=== PATIENT | male | born 1955 | race Caucasian/White ===

== ENCOUNTER 2016-10-31 10:21 | Emergency (ER) | payer SELFPAY ==
--- NOTE | 2016-10-31 10:39 | ER Document Report ---
ED Medical Screen (RME) - General Stated Complaint: BLOOD SUGAR PROB Notes: Patient is brought in today by mobile crisis for safety concerns. He is diabetic, and has not been caring for self correctly. Patient has not eaten in about 4 days, and is homeless. Most recent toe amputation was about 2 months ago to her right foot. Complains of numbness to the foot. Patient has a history of depression. I have greeted and performed a rapid initial assessment of this patient. A comprehensive ED assessment and evaluation of the patient, analysis of test results and completion of the medical decision making process will be conducted by additional ED providers. TRAVEL OUTSIDE OF THE [place] IN LAST 30 DAYS: No - Related Data Allergies/Adverse Reactions: No Known Allergies Allergy (Verified 10/31/16 10:34) Past Medical History - Social History Family history: None - Past Medical History Cardiac Medical History: Denies: Hx Coronary Artery Disease, Hx Heart Attack, Hx Hypertension Pulmonary Medical History: Denies: Hx Asthma, Hx Bronchitis, Hx COPD, Hx Pneumonia Neurological Medical History: Denies: Hx Cerebrovascular Accident, Hx Seizures Endocrine Medical History: Reports: Hx Diabetes Mellitus Type 2 - non compliant with medications Musculoskeltal Medical History: Denies Hx Arthritis Psychiatric Medical History: Reports: Hx Depression - Immunizations Hx Diphtheria, Pertussis, Tetanus Vaccination: No Physical Exam - Vital signs Vitals: Temp Pulse Resp BP Pulse Ox 98.1 F 90 20 167/89 H 99 10/31/16 10:10/31/16 10:10/31/16 10:10/31/16 10:10/31/16 10:31 - Skin Notes: large surgical wound noted to right lower leg, + edema lower legs Course - Vital Signs Vital signs: Temp Pulse Resp BP Pulse Ox 98.1 F 90 20 167/89 H 99 10/31/16 10:31 10/31/16 10:31 10/31/16 10:10/31/16 10:31 10/31/16 10:31
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
[2016-10-31 11:32] LABS: ABSOLUTE EOSINOPHILS # (AUTO) 0.1 10^3/uL (0.0-0.6); ABSOLUTE LYMPHOCYTES (AUTO) 0.9 10^3/uL (0.5-4.7); ABSOLUTE MONOCYTES (AUTO) 0.5 10^3/uL (0.1-1.4); ABSOLUTE NEUT (AUTO) 3.5 10^3/uL (1.7-8.2); BASOPHILS % (AUTO) 0.3 % (0-2); EOSINOPHILS % (AUTO) 1.2 % (0-6); HEMATOCRIT 38.4 % (37.9-51.0); HGB HCT DIFFERENCE 0.6; MEAN CORPUSCULAR HEMOGLOBIN 29.1 pg (27.0-33.4); MEAN CORPUSCULAR HGB CONC 33.8 g/dL (32.0-36.0); MEAN CORPUSCULAR VOLUME 86 fl (80-97); MONOCYTES % (AUTO) 9.7 % (3-13); RED BLOOD COUNT 4.46 10^6/uL (4.35-5.55); RED CELL DISTRIBUTION WIDTH 15.6 % (11.5-14.0); SEGMENTED NEUTROPHILS % (AUTO) 70.8 % (42-78); WHITE BLOOD COUNT 4.9 10^3/uL (4.0-10.5)
[2016-10-31 11:59] LABS: ALANINE AMINOTRANSFERASE 23 U/L (21-72); ALBUMIN 4.1 g/dL (3.5-5.0); ALKALINE PHOSPHATASE 94 U/L (38-126); ANION GAP 17 (5-19); ASPARTATE AMINO TRANSFERASE 27 U/L (17-59); BILIRUBIN,DIRECT 0.3 mg/dL (0.0-0.4); BILIRUBIN,TOTAL 0.7 mg/dL (0.2-1.3); BLOOD UREA NITROGEN 23 mg/dL (7-20); CALCIUM 10.1 mg/dL (8.4-10.2); CARBON DIOXIDE 21 mmol/L (22-30); CHLORIDE 107 mmol/L (98-107); CREATININE RESULT 1.53 mg/dL (0.52-1.25); GLUCOSE 75 mg/dL (75-110); POTASSIUM 4.7 mmol/L (3.6-5.0); SODIUM 144.6 mmol/L (137-145); TOTAL PROTEIN 7.6 g/dL (6.3-8.2)
[2016-10-31 12:00] LABS: ALCOHOL < 10 mg/dL (NONE DETECTED)
[2016-10-31 12:08] LABS: APPEARANCE,URINE SLIGHTLY-CLOUDY; BILIRUBIN,URINE NEGATIVE (NEGATIVE); GLUCOSE, URINE NEGATIVE (NEGATIVE); KETONES,URINE 20 mg/dL (NEGATIVE); LEUKOCYTE ESTERASE,URINE NEGATIVE (NEGATIVE); NITRITE,URINE NEGATIVE (NEGATIVE); PROTEIN,URINE 100 mg/dL (NEGATIVE); URINE SPECIFIC GRAVITY 1.015; UROBILINOGEN,URINE NEGATIVE mg/dL (<2.0)
[2016-10-31 12:23] LABS: URINE BARBITURATES SCREEN NEGATIVE; URINE METHADONE SCREEN NEGATIVE; URINE OPIATES LOW NEGATIVE; URINE PHENCYCLIDINE SCREEN NEGATIVE
[2016-10-31 14:23] VITALS: BP 155/75
--- NOTE | 2016-10-31 21:58 | EKG REPORT ---
SEVERITY:- NORMAL ECG - SINUS RHYTHM : Confirmed by: Aldo Harmon 31-Oct-2016 21:58:22
== END 2016-10-31 14:30 | disposition home or self-care (01) ==
LOC: ER 10:21
DX: Z47.81 Encounter for orthopedic aftercare following surgical amputation (principal); Z89.421 Acquired absence of other right toe(s); Z79.84 Long term (current) use of oral hypoglycemic drugs; E11.9 Type 2 diabetes mellitus without complications
CPT/HCPCS: 36415; 80053; 80307; 81001; 85025; 93005; 93010; 99283

== ENCOUNTER 2019-02-21 10:55 | Emergency (ER) | payer MEDICARE, MEDICAID ==
--- NOTE | 2019-02-21 11:19 | ER Document Report ---
ED Medical Screen (RME) - General Chief Complaint: Suicidal Ideation Stated Complaint: SI Time Seen by Provider: 02/21/19 11:16 Mode of Arrival: Ambulatory Information source: Patient Notes: Patient is a 63-year-old male presenting to the emergency department chief complaint of depression and suicidal thoughts. Patient reports he is a diabetic and was thinking about drinking some liquor and eating some Snickers to put himself into a diabetic coma. Patient reports he has had struggles with alcohol for many years and would like to get help getting back into detox. Patient denies any homicidal ideations. Exam: Patient alert, oriented, answering all questions appropriately. Patient is very tearful but cooperative. Unkempt appearance. I have greeted and performed a rapid initial assessment of this patient. A comprehensive ED assessment and evaluation of the patient, analysis of test results and completion of the medical decision making process will be conducted by additional ED providers. I have specifically instructed the patient or family members with the patient to immediately return to any nursing staff should anything change in the patient's condition or with their chief complaint. This medical record was dictated with voice recognizing software. There may be grammatical, syntax errors that are unintended. TRAVEL OUTSIDE OF THE [place] IN LAST 30 DAYS: No - Related Data Allergies/Adverse Reactions: No Known Allergies Allergy (Verified 02/21/19 10:56) Past Medical History - Social History Frequency of alcohol use: None Drug Abuse: None Family history: None - Past Medical History Cardiac Medical History: Reports: Hx Hypertension Denies: Hx Coronary Artery Disease, Hx Heart Attack Pulmonary Medical History: Denies: Hx Asthma, Hx Bronchitis, Hx COPD, Hx Pneumonia Neurological Medical History: Denies: Hx Cerebrovascular Accident, Hx Seizures Endocrine Medical History: Reports: Hx Diabetes Mellitus Type 2 - non compliant with medications Renal/ Medical History: Denies: Hx Peritoneal Dialysis Musculoskeltal Medical History: Denies Hx Arthritis Psychiatric Medical History: Reports: Hx Depression Past Surgical History: Reports: Other - Multiple toe amputations - Immunizations Hx Diphtheria, Pertussis, Tetanus Vaccination: No Physical Exam - Vital signs Vitals: Temp Pulse Resp BP Pulse Ox 98.5 F 104 H 18 140/79 H 99 02/21/19 11:04 02/21/19 11:04 02/21/19 11:04 02/21/19 11:04 02/21/19 11:04 Course - Vital Signs Vital signs: Temp Pulse Resp BP Pulse Ox 98.5 F 104 H 18 140/79 H 99 02/21/19 11:04 02/21/19 11:04 02/21/19 11:04 02/21/19 11:04 02/21/19 11:04
[2019-02-21 11:57] LABS: ABSOLUTE EOSINOPHILS # (AUTO) 0.1 10^3/uL (0.0-0.6); ABSOLUTE LYMPHOCYTES (AUTO) 0.8 10^3/uL (0.5-4.7); ABSOLUTE MONOCYTES (AUTO) 0.6 10^3/uL (0.1-1.4); BASOPHILS % (AUTO) 0.3 % (0-2); EOSINOPHILS % (AUTO) 1.8 % (0-6); HEMATOCRIT 29.8 % (37.9-51.0); HEMOGLOBIN 10.2 g/dL (13.5-17.0); LYMPHOCYTES % (AUTO) 12.4 % (13-45); MEAN CORPUSCULAR HEMOGLOBIN 28.9 pg (27.0-33.4); MEAN CORPUSCULAR HGB CONC 34.1 g/dL (32.0-36.0); MEAN CORPUSCULAR VOLUME 85 fl (80-97); MONOCYTES % (AUTO) 9.3 % (3-13); PLATELET COUNT 281 10^3/uL (150-450); RED BLOOD COUNT 3.52 10^6/uL (4.35-5.55); RED CELL DISTRIBUTION WIDTH 15.9 % (11.5-14.0); SEGMENTED NEUTROPHILS % (AUTO) 76.2 % (42-78); TOTAL CELLS COUNTED % (AUTO) 100 %; WHITE BLOOD COUNT 6.6 10^3/uL (4.0-10.5)
[2019-02-21 12:17] LABS: ALANINE AMINOTRANSFERASE 18 U/L (21-72); ALBUMIN 3.5 g/dL (3.5-5.0); ALKALINE PHOSPHATASE 103 U/L (38-126); ANION GAP 11 (5-19); ASPARTATE AMINO TRANSFERASE 27 U/L (17-59); BILIRUBIN,DIRECT 0.4 mg/dL (0.0-0.4); BILIRUBIN,TOTAL 0.6 mg/dL (0.2-1.3); BLOOD UREA NITROGEN 35 mg/dL (7-20); CALCIUM 9.1 mg/dL (8.4-10.2); CARBON DIOXIDE 20 mmol/L (22-30); CHLORIDE 106 mmol/L (98-107); GLUCOSE 172 mg/dL (75-110); POTASSIUM 4.7 mmol/L (3.6-5.0); TOTAL PROTEIN 7.3 g/dL (6.3-8.2)
[2019-02-21 12:26] LABS: ACETAMINOPHEN < 10 ug/mL (10-30); ALCOHOL < 10 mg/dL (NONE DETECTED); SALICYLATE < 1.0 mg/dL (2.0-20.0)
[2019-02-21 12:28] LABS: APPEARANCE,URINE CLEAR; BILIRUBIN,URINE NEGATIVE (NEGATIVE); COLOR,URINE YELLOW; GLUCOSE, URINE 50 mg/dL (NEGATIVE); KETONES,URINE NEGATIVE (NEGATIVE); LEUKOCYTE ESTERASE,URINE NEGATIVE (NEGATIVE); NITRITE,URINE NEGATIVE (NEGATIVE); PROTEIN,URINE 100 mg/dL (NEGATIVE); URINE SPECIFIC GRAVITY 1.016; UROBILINOGEN,URINE NEGATIVE mg/dL (<2.0)
[2019-02-21 12:43] LABS: URINE AMPHETAMINES SCREEN NEGATIVE; URINE BARBITURATES SCREEN NEGATIVE; URINE BENZODIAZEPINES SCREEN NEGATIVE; URINE COCAINE SCREEN NEGATIVE; URINE MARIJUANA (THC) SCREEN NEGATIVE; URINE METHADONE SCREEN NEGATIVE; URINE PHENCYCLIDINE SCREEN NEGATIVE
--- NOTE | 2019-02-21 13:15 | ER Document Report ---
ED Psych Disorder / Suicide - General Chief Complaint: Suicidal Ideation Stated Complaint: SI Time Seen by Provider: 02/21/19 11:16 Primary Care Provider: OPAL BRADFORD PA-C [Primary Care Provider] - Follow up as needed Mode of Arrival: Ambulatory Notes: Patient is a 63-year-old male presenting to the emergency department chief complaint of depression and suicidal thoughts. Patient reports he is a diabetic and was thinking about drinking some liquor and eating some Snickers to put him self into a diabetic coma. Patient reports he has had struggles with alcohol for many years and would like to get help getting back into detox. Patient denies any homicidal ideations. TRAVEL OUTSIDE OF THE [place] IN LAST 30 DAYS: No - Related Data Allergies/Adverse Reactions: No Known Allergies Allergy (Verified 02/21/19 10:56) Past Medical History - General Information source: Patient - Social History Smoking Status: Current Every Day Smoker Frequency of alcohol use: None Drug Abuse: None Family History: Reviewed & Not Pertinent, DM Patient has suicidal ideation: Yes Patient has homicidal ideation: No - Past Medical History Cardiac Medical History: Reports: Hx Hypertension Denies: Hx Coronary Artery Disease, Hx Heart Attack Pulmonary Medical History: Denies: Hx Asthma, Hx Bronchitis, Hx COPD, Hx Pneumonia Neurological Medical History: Denies: Hx Cerebrovascular Accident, Hx Seizures Endocrine Medical History: Reports: Hx Diabetes Mellitus Type 2 - non compliant with medications Renal/ Medical History: Denies: Hx Peritoneal Dialysis Musculoskeletal Medical History: Denies Hx Arthritis Psychiatric Medical History: Reports: Hx Depression Past Surgical History: Reports: Other - Multiple toe amputations - Immunizations Hx Diphtheria, Pertussis, Tetanus Vaccination: No Hx Pneumococcal Vaccination: 09/26/13 Review of Systems - Review of Systems Constitutional: denies: Chills, Fever Cardiovascular: denies: Chest pain, Palpitations Respiratory: denies: Short of breath Gastrointestinal: denies: Abdominal pain, Nausea, Vomiting Genitourinary: denies: Dysuria Neurological/Psychological: Depression, Anxiety, Suicidal ideation. denies: Hallucinations, Headaches -: Yes All other systems reviewed and negative Physical Exam - Vital signs Vitals: Temp Pulse Resp BP Pulse Ox 98.5 F 104 H 18 140/79 H 99 02/21/19 11:04 02/21/19 11:04 02/21/19 11:04 02/21/19 11:04 02/21/19 11:04 - Notes Notes: GENERAL_APPEARANCE: well_nourished, alert, cooperative, no_acute_distress, no_obvious_discomfort. VITALS: reviewed, see vital signs table. HEAD: no_swelling\tenderness on the head. EYES: PERRL, EOMI, conjunctiva_clear. NOSE: no_nasal_discharge. MOUTH: (-)decreased moisture. THROAT: no_tonsilar_inflammation, no_airway_obstruction. no_lymphadenopathy NECK: supple, no_neck_tenderness, (-)thyromegaly. BACK: no_back_tenderness. CHEST_WALL: no_chest_tenderness. LUNGS: no_wheezing, no_rales, no_rhonchi, (-)accessory muscle use, good air exchange bilateral. HEART: normal_rate, normal_rhythm, normal_S1, normal_S2, (-)S3, (-)S4, no_murmur, no_rub. ABDOMEN: normal_BS, soft, no_abd_tenderness, (-)guarding, (-)rebound, no_organomegaly, no_abd_masses. EXTREMITIES: good pulses in all_extremities, no_swelling\tenderness in the extremities, no_edema. SKIN: warm, dry, good_color, no_rash. MENTAL_STATUS: speech_clear, oriented_X_3, depressed_affect, responds_appropriately to questions. NEURO: Neg Motor or Sensory Deficits on exam, CN 2-12 intact, DTR 2+ symmetric x 4, No cerbellar signs PSYCH: Patient states he is having thoughts of hurting himself he stated that he would drive himself out to [facility] and drink heavily and eat lots of candy. He states he would put himself in a diabetic coma in an effort to kill himself. He denies any other methods. Denies homicidal ideation. Denies visual auditory hallucinations. Patient reports him to being a lot of stress Course - Re-evaluation Re-evalutation: 02/21/19 13:14 Patient arrives with suicidal thoughts and depression. The patient had some mildly elevated sugar but no anion gap acidosis no ketones in the urine no diabetic ketoacidosis. Patient will need to be placed on sliding scale insulin and need to be seen by psychiatry Otherwise he is medically clear for any kind of inpatient or outpatient psychiatric care he would require. - Vital Signs Vital signs: Temp Pulse Resp BP Pulse Ox 98.5 F 104 H 18 140/79 H 99 02/21/19 11:04 02/21/19 11:04 02/21/19 11:04 02/21/19 11:04 02/21/19 11:04 - Laboratory Result Diagrams: 02/21/19 11:30 02/21/19 11:30 Laboratory results interpreted by me: 02/21/19 02/21/19 02/21/19 11:30 11:30 12:08 RBC 3.52 L Hgb 10.2 L Hct 29.8 L RDW 15.9 H Lymphocytes % 12.4 L Sodium 136.9 L Carbon Dioxide 20 L BUN 35 H Creatinine 1.96 H Est GFR ( Amer) 42 L Est GFR (Non-Af Amer) 34 L Glucose 172 H ALT 18 L Urine Protein 100 H Urine Glucose (UA) 50 H Salicylates < 1.0 L Acetaminophen < 10 L Discharge - Discharge Clinical Impression: Suicidal thoughts Condition: Good Disposition: PSYCH HOSP/UNIT Referrals: OPAL BRADFORD PA-C [Primary Care Provider] - Follow up as needed
[2019-02-21] MEDS ORDERED: INSULIN REG, HUMAN 100 UNIT/ML 3 ML VIAL (PYX) SUBCUT PRN (13:16)
[2019-02-21] MEDS ORDERED: DEXTROSE 40% GEL 15 GM TUBE PO PRN ×2 (13:16)
[2019-02-21] MEDS ORDERED: DEXTROSE 50%-WATER 25 GM/50 ML DISP.SYRIN IV PRN ×2 (13:16)
[2019-02-21] MEDS ORDERED: GLUCAGON,HUMAN RECOMB 1 MG INJ IM PRN (13:16)
[2019-02-21] MEDS ORDERED: DULOXETINE HCL 30 MG CAPSULE.DR PO STA (13:56)
[2019-02-21] MEDS ORDERED: BUSPIRONE HCL 10 MG TABLET PO STA (13:56)
--- NOTE | 2019-02-21 18:35 | PSYCHOLOGICAL NOTE ---
Psych Note - Psych Note Date seen by psych provider: 02/21/19 Time seen by psych provider: 11:33 - Chart review at 1133. Evaluation from 1206- 1221. Psych Note: Presenting Problem: SI with plan to drink alcohol and eat a Snickers to put self in diabetic coma, Depression with Hx, Hx of Alcohol Use. he reported "angel, I'm not clear thinking, no past attempts, I never tried, I have strong thoughts/laid out a plan/got close to taking action" when asked about thoughts of wanting to hurt/harm/kill self. He said "when I go into deep depression I sink real fast, I get back to the suicidal thinking, then get close to normal, it is a roller coaster of ups and downs." Patient stated April 03, 2019 will be 2 years he has been sober from alcohol. he stated he took a medication that helped curb cravings. He denied drug use since during [place] when he used marijuana. He stated "the last few weeks have been a blur." He stated he has been out of medications for a month or longer. He had medication bottles: Naltrexone 50MG QD, Cymbalta 60MG QD, Amlodipine Besylate 10MG QD and Hydralazine 10MG Q8H with prescriber as [facility], fill date as 12/03/18 and bottles empty. He identified he had been on the 5th floor/psych unit at [facility] for 2 weeks. he noted he thinks he was on Paxil in the past, recalls being on it for 60 days without effectiveness. Patient had a back pack and green plastic bag full of clothes, both he and the clothes had a pungent odor. He reported he has 3 male friends in [facility] that are supports and help him out, he was staying with one the past couple days and prior to that was at a motel. He stated he has 3 estranged children, his family is not really supportive and his ex is helpful/they have a good relationship still. He noted his mother from dementia 5 years ago, he had resided with her her last year of life, it was difficult. He stated he thinks mother suffered from depression and did have anorexia other zhang no other family MH Hx. Patient seen by [facility] team 02/24/16 for alcohol withdrawals and depression, was already set to go to [facility] in [place], [place] for treatment the following day (so was discharged to follow through with that placement), had noted he was sober for 3 years until September relapse in that year and reported having SS/Disability. Patient was alert and oriented x5 with linear thinking. He was able to carry on dialogue conversation and express self/needs/wants. Diagnosis: 311 (F32.9) Unspecified Depressive Disorder Hx of Alcohol Use Disorder, Severe Medication recommendations made by the psychiatric medical provider, Dr. Dedrick MD., includes: Add Cymbalta 30MG daily for depression Add Buspar 5MG twice a day for anxiety/calming effect/depression/sleep Impression/Plan: Recommendation for 24 Hour IVC Petition. Patient endorsed SI with plan (more passive however since he reported strong thoughts no past attempts or actions), Hx of depression, was on medication but has been out for a month and abruptly stopped because he ran out of medication and in the past when going into deep depression he has resorted to drinking. Will reassess in the morning. If medication tolerated well will try to do plan of care for discharge and link patient to outpatient provider. Consulted with Dr. Ramachandran regarding the management and care of patient. ED Physician in agreement with recommendations.
--- NOTE | 2019-02-21 21:18 | EKG REPORT ---
SEVERITY:- NORMAL ECG - SINUS RHYTHM : Confirmed by: Aldo Harmon 21-Feb-2019 21:17:07
[2019-02-22] MEDS: DULOXETINE HCL 30 MG CAPSULE.DR PO SCH (10:12)
[2019-02-22] MEDS: BUSPIRONE HCL 10 MG TABLET PO SCH ×2 (10:12→17:16)
--- NOTE | 2019-02-22 20:56 | ER Document Report ---
Entered by RAFAL PAGAN SCRIBE 02/22/19 3220 Acting as scribe for:KETURAH SCHMITT DO Doctor's Note Notes: 02/22/19 17:43 Patient is a 63-year-old male presenting to the emergency department with depression. Patient states that he thought about killing himself. Patient states that he has been staying with a friend in [facility] for a few days, his friend stated that he feels the patient needs help and he brought him here to the emergency department. Patient states that he had a plan to kill himself, he was going to put himself in a diabetic coma with 1/5 of Brayan Shah. Patient states that he has been taking antidepressants, he takes a pill. Patient states that he has been an outpatient at a mental institution about 6 to 8 months ago. Patient is a former drinker, he states that he has had problems with alcoholism. Patient denies trying to kill himself, patient states that he has only thought about it. 02/22/19 17:45 PHYSICAL EXAM GENERAL: Alert, interacts well. No acute distress. HEAD: Normocephalic, atraumatic. EYES: Pupils equal, round, and reactive to light. Extraocular movements intact. ENT: Oral mucosa moist, tongue midline. NECK: Full range of motion. Supple. Trachea midline. LUNGS: Clear to auscultation bilaterally, no wheezes, rales, or rhonchi. No respiratory distress. HEART: Regular rate and rhythm. No murmurs, gallops, or rubs. ABDOMEN: Soft, non-tender. Non-distended. Bowel sounds present in all 4 quadrants. No guarding, rigidity, or rebound. EXTREMITIES: Ecchymosis in various stages of healing at the bilateral forearm. Surgical scar at the center of the right foot. Moves all 4 extremities spontaneously. No edema, radial and dorsalis pedis pulses 2/4 bilaterally. No cyanosis. NEUROLOGICAL: Alert and oriented x3. Normal speech. Biceps and patellar DTRs 2+ bilaterally. PSYCH: Normal affect, normal mood. SKIN: Warm, dry, normal turgor. No rashes or lesions noted. I personally performed the services described in the documentation, reviewed and edited the documentation which was dictated to the scribe in my presence, and it accurately records my words and actions.
[2019-02-23] MEDS: DULOXETINE HCL 30 MG CAPSULE.DR PO SCH (09:34)
[2019-02-23] MEDS: BUSPIRONE HCL 10 MG TABLET PO SCH ×2 (09:35→17:14)
--- NOTE | 2019-02-23 09:37 | ER Document Report ---
Doctor's Note Notes: 02/23/19 09:35 63-year-old male who presents secondary to suicidal ideations and depression. History of alcohol abuse. Labs and vital signs as recorded. Patient is currently calm and cooperative.
[2019-02-23 17:38] VITALS: BP 161/87
--- NOTE | 2019-02-23 19:52 | ER Document Report ---
Doctor's Note Notes: 02/23/19 19:51 Transport is available at this time. Patient remained stable for transport.
== END 2019-02-23 20:05 ==
LOC: ER 10:55
DX: R45.851 Suicidal ideations (principal); F32.9 Major depressive disorder, single episode, unspecified; Z79.899 Other long term (current) drug therapy; F41.9 Anxiety disorder, unspecified; E11.9 Type 2 diabetes mellitus without complications; F17.200 Nicotine dependence, unspecified, uncomplicated; I10 Essential (primary) hypertension
CPT/HCPCS: 93005; 36415; 82962; 80307 ×4; 85025; 80053; 81001; 93010; A9270 ×7; 99285; J1815

== ENCOUNTER 2019-03-15 18:40 | Emergency (ER) | payer MEDICARE, MEDICAID ==
[2019-03-15 19:21] LABS: ABSOLUTE BASOPHILS # (AUTO) 0.1 10^3/uL (0.0-0.2); ABSOLUTE MONOCYTES (AUTO) 0.5 10^3/uL (0.1-1.4); ABSOLUTE NEUT (AUTO) 6.5 10^3/uL (1.7-8.2); BASOPHILS % (AUTO) 0.8 % (0-2); EOSINOPHILS % (AUTO) 0.3 % (0-6); HEMATOCRIT 33.5 % (37.9-51.0); HEMOGLOBIN 11.2 g/dL (13.5-17.0); LYMPHOCYTES % (AUTO) 12.9 % (13-45); MEAN CORPUSCULAR HEMOGLOBIN 28.9 pg (27.0-33.4); MEAN CORPUSCULAR HGB CONC 33.6 g/dL (32.0-36.0); MEAN CORPUSCULAR VOLUME 86 fl (80-97); MONOCYTES % (AUTO) 5.8 % (3-13); PLATELET COUNT 358 10^3/uL (150-450); RED BLOOD COUNT 3.89 10^6/uL (4.35-5.55); RED CELL DISTRIBUTION WIDTH 15.7 % (11.5-14.0); SEGMENTED NEUTROPHILS % (AUTO) 80.2 % (42-78); TOTAL CELLS COUNTED % (AUTO) 100 %; WHITE BLOOD COUNT 8.1 10^3/uL (4.0-10.5)
[2019-03-15 19:41] LABS: APPEARANCE,URINE SLIGHTLY-CLOUDY; BILIRUBIN,URINE NEGATIVE (NEGATIVE); COLOR,URINE YELLOW; GLUCOSE, URINE 50 mg/dL (NEGATIVE); KETONES,URINE NEGATIVE (NEGATIVE); LEUKOCYTE ESTERASE,URINE TRACE (NEGATIVE); NITRITE,URINE NEGATIVE (NEGATIVE); PROTEIN,URINE 100 mg/dL (NEGATIVE); URINE SPECIFIC GRAVITY 1.017; UROBILINOGEN,URINE NEGATIVE mg/dL (<2.0)
[2019-03-15 19:47] LABS: ALBUMIN 4.1 g/dL (3.5-5.0); ALKALINE PHOSPHATASE 105 U/L (38-126); ANION GAP 9 (5-19); ASPARTATE AMINO TRANSFERASE 41 U/L (17-59); BILIRUBIN,DIRECT 0.3 mg/dL (0.0-0.4); BILIRUBIN,TOTAL 0.4 mg/dL (0.2-1.3); BLOOD UREA NITROGEN 35 mg/dL (7-20); CALCIUM 8.9 mg/dL (8.4-10.2); CARBON DIOXIDE 21 mmol/L (22-30); CHLORIDE 106 mmol/L (98-107); GLUCOSE 101 mg/dL (75-110); TOTAL PROTEIN 8.2 g/dL (6.3-8.2)
[2019-03-15 19:48] LABS: ACETAMINOPHEN < 10 ug/mL (10-30); ALCOHOL < 10 mg/dL (NONE DETECTED); POTASSIUM 5.6 mmol/L (3.6-5.0); SALICYLATE < 1.0 mg/dL (2.0-20.0)
[2019-03-15 20:01] LABS: URINE AMPHETAMINES SCREEN NEGATIVE; URINE BARBITURATES SCREEN NEGATIVE; URINE BENZODIAZEPINES SCREEN NEGATIVE; URINE COCAINE SCREEN NEGATIVE; URINE MARIJUANA (THC) SCREEN NEGATIVE; URINE METHADONE SCREEN NEGATIVE; URINE PHENCYCLIDINE SCREEN NEGATIVE
[2019-03-15] MEDS ORDERED: NORMAL SALINE 1000 ML 1,000 ML IV ONE (23:02)
[2019-03-15] MEDS ORDERED: SODIUM POLYSTYRENE SULFONATE 15 GM/60 ML PO ONE (23:02)
--- NOTE | 2019-03-15 23:06 | ER Document Report ---
Addendum entered and electronically signed by HALLIE URIARTE DO 03/16/19 13:59: Discharge - Discharge Clinical Impression: Hyperkalemia, Suicidal ideation Condition: Stable Disposition: HOME, SELF-CARE Additional Instructions: You have been evaluated both medical and behavioral health teams and been deemed appropriate for discharge. You are highly encouraged to follow through with outpatient mental health services for both medication management and therapeutic services. You have been provided a local resource list of area providers including mobile crisis contact information. You have also been provided and economic resource list which includes soup kitchen, food szymanski, care home information and addition to economic assistance programs. DEPRESSION: Your evaluation reveals that you have mental depression. While symptoms may be vague, they often include disturbance of sleep, fatigue, loss of appetite, and general loss of interest in life. While depression may be a side effect of drugs, or a reaction to a major change in your life, many cases have no known cause. If depression is acute, and related to a major loss in your life, you can expect it to clear completely with time. If you have been depressed a long time, are prone to repeated bouts of depression or low mood, or have been thinking of suicide, get help. Depression can be treated with anti-depressant medication and counselling. Long-term depression will often take a few weeks to clear, even with appropriate medication. Follow-up care is important. SUICIDAL IDEATION: Suicidal ideation is a common medical term for thoughts about suicide, which may be as detailed as a formulated plan, without the suicidal act itself. Although most people who undergo suicidal ideation do not commit suicide, some go on to make suicide attempts. The range of suicidal ideation varies greatly from fleeting to detailed planning, role playing, and unsuccessful attempts. While thoughts about suicide are common, most people do not carry out serious actions to commit suicide. Based upon your evaluation and discussion with you, we do not believe you are currently at risk to act upon your thoughts of suicide. You have agreed to return to the Emergency Department, at any time, if you feel inclined to act upon your suicidal thoughts. FOLLOW-UP CARE: If you have been referred to a physician for follow-up care, call the physici ans office for an appointment as you were instructed or within the next two days. If you experience worsening or a significant change in your symptoms, notify the physician immediately or return to the Emergency Department at any time for re-evaluation. Referrals: [facility] [Outside] - Follow up in 3-5 days [facility] [Outside] - Follow up as needed OPAL BRADFORD PA-C [Primary Care Provider] - Follow up as needed Addendum entered and electronically signed by YESENIA OLIVA LCSWA 03/16/19 10:25: Discharge - Discharge Clinical Impression: Hyperkalemia, Suicidal ideation Condition: Stable Disposition: HOME, SELF-CARE Additional Instructions: You have been evaluated both medical and behavioral health teams and been deemed appropriate for discharge. You are highly encouraged to follow through with outpatient mental health services for both medication management and therapeutic services. You have been provided a local resource list of area providers including mobile crisis contact information. You have also been provided and economic resource list which includes soup kitchen, food szymanski, care home information and addition to economic assistance programs. DEPRESSION: Your evaluation reveals that you have mental depression. While symptoms may be vague, they often include disturbance of sleep, fatigue, loss of appetite, and general loss of interest in life. While depression may be a side effect of drugs, or a reaction to a major change in your life, many cases have no known cause. If depression is acute, and related to a major loss in your life, you can expect it to clear completely with time. If you have been depressed a long time, are prone to repeated bouts of depression or low mood, or have been thinking of suicide, get help. Depression can be treated with anti-depressant medication and counselling. Long-term depression will often take a few weeks to clear, even with appropriate medication. Follow-up care is important. SUICIDAL IDEATION: Suicidal ideation is a common medical term for thoughts about suicide, which may be as detailed as a formulated plan, without the suicidal act itself. Although most people who undergo suicidal ideation do not commit suicide, some go on to make suicide attempts. The range of suicidal ideation varies greatly from fleeting to detailed planning, role playing, and unsuccessful attempts. While thoughts about suicide are common, most people do not carry out serious actions to commit suicide. Based upon your evaluation and discussion with you, we do not believe you are currently at risk to act upon your thoughts of suicide. You have agreed to return to the Emergency Department, at any time, if you feel inclined to act upon your suicidal thoughts. FOLLOW-UP CARE: If you have been referred to a physician for follow-up care, call the physicians office for an appointment as you were instructed or within the next two days. If you experience worsening or a significant change in your symptoms, notify the physician immediately or return to the Emergency Department at any time for re-evaluation. Referrals: OPAL BRADFORD PA-C [Primary Care Provider] - Follow up as needed [facility] [Outside] - Follow up as needed [facility] [Outside] - Follow up in 3-5 days Original Note: ED General - General Chief Complaint: Suicidal Ideation Stated Complaint: STOMACH PAIN,FOOT PAIN Time Seen by Provider: 03/15/19 19:17 Primary Care Provider: OPAL BRADFORD PA-C [Primary Care Provider] - Follow up as needed TRAVEL OUTSIDE OF THE [place] IN LAST 30 DAYS: No - HPI Notes: Patient is a 63-year-old male who presents emergency department for evaluation. He has a history of depression. He states today he left his motel, where he is currently living. He went to a fast food restaurant to eat, and was overcome with "waves of depression." He had a plan to drink himself into diabetic, with a bottle of Brayan Shah. He has a history of alcoholism, has been sober for nearly 2 years. He denies any homicidal ideation. No visual or auditory hallucination. He is hospitalized in the past here in the emergency department, but denies any other psychiatric hospitalizations. He states he used to be on antidepressant, does not remember what it was, and states it really never worked. He states that he has pain in his feet, chronic from his diabetic neuropathy. He generally just feels weak and poorly all over. - Related Data Allergies/Adverse Reactions: No Known Allergies Allergy (Verified 02/21/19 10:56) Past Medical History - General Information source: Patient - Social History Smoking Status: Current Some Day Smoker Frequency of alcohol use: Former alcohol attendance Family History: Reviewed & Not Pertinent, DM Patient has suicidal ideation: Yes Patient has homicidal ideation: No - Past Medical History Cardiac Medical History: Reports: Hx Hypertension Denies: Hx Coronary Artery Disease, Hx Heart Attack Pulmonary Medical History: Denies: Hx Asthma, Hx Bronchitis, Hx COPD, Hx Pneumonia Neurological Medical History: Denies: Hx Cerebrovascular Accident, Hx Seizures Endocrine Medical History: Reports: Hx Diabetes Mellitus Type 2 - non compliant with medications Renal/ Medical History: Denies: Hx Peritoneal Dialysis Musculoskeletal Medical History: Denies Hx Arthritis Psychiatric Medical History: Reports: Hx Depression Past Surgical History: Reports: Other - Multiple toe amputations - Immunizations Hx Diphtheria, Pertussis, Tetanus Vaccination: No Hx Pneumococcal Vaccination: 09/26/13 Review of Systems - Review of Systems Constitutional: See HPI EENT: No symptoms reported Cardiovascular: No symptoms reported Respiratory: No symptoms reported Gastrointestinal: No symptoms reported Genitourinary: No symptoms reported Musculoskeletal: No symptoms reported Skin: No symptoms reported Neurological/Psychological: See HPI Physical Exam - Vital signs Vitals: Temp Pulse Resp BP Pulse Ox 99.2 F 85 19 184/82 H 97 03/15/19 19:02 03/15/19 19:02 03/15/19 19:02 03/15/19 19:02 03/15/19 19:02 - Notes Notes: This is a 63-year-old male who appears his stated age in no acute distress. He is calm and cooperative, although disheveled appearance. Vital signs reviewed, please refer to chart. Head is normocephalic, atraumatic. Pupils equal round, reactive to light. Neck is supple without meningismus. Heart is regular rate and rhythm. Lungs are clear to auscultation bilaterally. Abdomen is soft, nontender, normoactive bowel sounds throughout. Extremities without cyanosis, clubbing. Posterior calves are nontender. Peripheral pulses are equal. Skin is warm and dry. Patient is awake, alert, neurological exam is nonfocal. Course - Re-evaluation Re-evalutation: 03/15/19 23:05 Patient presents emergency department for evaluation. He is under IVC for suicidal ideation. Laboratory investigations ordered. He is found to be hyperkalemic. EKG pending at this time. He is given IV fluids as well as a dose of Kayexalate. I have every suspicion that this will be sufficient to treat this hyperkalemia. We will order a repeat metabolic panel for tomorrow morning to confirm. Following treatment, patient will be medically cleared for psychiatric evaluation. 03/15/19 23:06 - Vital Signs Vital signs: Temp Pulse Resp BP Pulse Ox 99.2 F 85 19 184/82 H 97 03/15/19 19:02 03/15/19 19:02 03/15/19 19:02 03/15/19 19:02 03/15/19 19:02 - Laboratory Result Diagrams: 03/15/19 18:55 03/15/19 18:55 Laboratory results interpreted by me: 03/15/19 03/15/19 03/15/19 18:49 18:55 18:55 RBC 3.89 L Hgb 11.2 L Hct 33.5 L RDW 15.7 H Seg Neutrophils % 80.2 H Lymphocytes % 12.9 L Sodium 136.4 L Potassium 5.6 H Carbon Dioxide 21 L BUN 35 H Creatinine 1.92 H Est GFR ( Amer) 43 L Est GFR (Non-Af Amer) 35 L Urine Protein 100 H Urine Glucose (UA) 50 H Urine Blood SMALL H Ur Leukocyte Esterase TRACE H Salicylates < 1.0 L Acetaminophen < 10 L - EKG Interpretation by Me Additional EKG results interpreted by me: 03/16/19 00:20 Sinus mechanism with a rate of 84 bpm. Normal axis and intervals, no acute ST changes concerning for ischemia or infarction. Discharge - Discharge Clinical Impression: Hyperkalemia, Suicidal ideation Condition: Stable Disposition: OTHER Referrals: OPAL BRADFORD PA-C [Primary Care Provider] - Follow up as needed
[2019-03-16 07:14] LABS: ANION GAP 7 (5-19); BLOOD UREA NITROGEN 29 mg/dL (7-20); CALCIUM 8.7 mg/dL (8.4-10.2); CARBON DIOXIDE 22 mmol/L (22-30); CHLORIDE 109 mmol/L (98-107); GLUCOSE 83 mg/dL (75-110)
[2019-03-16 07:29] LABS: POTASSIUM 4.6 mmol/L (3.6-5.0)
[2019-03-16] MEDS ORDERED: HYDRALAZINE HCL 10 MG TABLET PO ONE (09:39)
[2019-03-16] MEDS ORDERED: ONDANSETRON 4 MG TAB.RAPDIS PO ONE (09:39)
[2019-03-16] MEDS ORDERED: AMLODIPINE BESYLATE 10 MG TABLET PO ONE (09:39)
--- NOTE | 2019-03-16 09:43 | ER Document Report ---
Doctor's Note Notes: 03/16/19 09:41 HPI; Patient is a 63-year-old male who presents emergency department for evaluation. He has a history of depression. He states today he left his motel, where he is currently living. He went to a fast food restaurant to eat, and was overcome with "waves of depression." He had a plan to drink himself into diabetic, with a bottle of Brayan Pablo. He has a history of alcoholism, has been sober for nearly 2 years. No acute events overnight. Patient is currently complaining of nausea. Plan is to transfer to [facility] but behavioral health wants an evaluation of the patient's right diabetic foot wound. PHYSICAL EXAMINATION: GENERAL: Well-appearing, well-nourished and in no acute distress. HEAD: Atraumatic, normocephalic. EYES: Pupils equal round extraocular movements intact, conjunctiva are normal. ENT: Nares patent NECK: Normal range of motion LUNGS: No respiratory distress Musculoskeletal: Normal range of motion. Right foot with a quarter sized ulcerated area that is without erythema, pain or purulent discharge. NEUROLOGICAL: Normal speech, normal gait. PSYCH: Normal mood, normal affect. SKIN: Warm, Dry, normal turgor, no rashes or lesions noted. Impression/plan: Patient's foot wound is healing well, does not appear infected. New bandage was placed today. This should not stop the patient from being accepted to a psychiatric facility.
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
--- NOTE | 2019-03-16 14:36 | EKG REPORT ---
SEVERITY:- NORMAL ECG - SINUS RHYTHM : Confirmed by: Aldo Harmon 16-Mar-2019 14:36:15
[2019-03-16 15:26] VITALS: BP 160/70
== END 2019-03-16 15:26 | disposition home or self-care (01) ==
LOC: ER 18:40
DX: R45.851 Suicidal ideations (principal); E87.5 Hyperkalemia; E11.40 Type 2 diabetes mellitus with diabetic neuropathy, unspecified; E11.621 Type 2 diabetes mellitus with foot ulcer; L97.519 Non-pressure chronic ulcer of other part of right foot with unspecified severity; R11.0 Nausea; R53.1 Weakness; F17.200 Nicotine dependence, unspecified, uncomplicated; F10.21 Alcohol dependence, in remission; I10 Essential (primary) hypertension
CPT/HCPCS: 93005; 99285; 96360; 36415; 80307 ×4; 85025; 80048; 80053; 81001; 93010; A9270 ×3; J7030; J3490; S0119

== ENCOUNTER 2019-04-14 15:30 | Emergency (ER) | payer MEDICARE ==
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
[2019-04-14 17:39] LABS: ABSOLUTE LYMPHOCYTES (AUTO) 0.8 10^3/uL (0.5-4.7); ABSOLUTE MONOCYTES (AUTO) 0.5 10^3/uL (0.1-1.4); ABSOLUTE NEUT (AUTO) 3.5 10^3/uL (1.7-8.2); BASOPHILS % (AUTO) 0.6 % (0-2); EOSINOPHILS % (AUTO) 0.5 % (0-6); HEMATOCRIT 32.9 % (37.9-51.0); LYMPHOCYTES % (AUTO) 16.4 % (13-45); MEAN CORPUSCULAR HEMOGLOBIN 28.9 pg (27.0-33.4); MEAN CORPUSCULAR HGB CONC 33.4 g/dL (32.0-36.0); MEAN CORPUSCULAR VOLUME 87 fl (80-97); MONOCYTES % (AUTO) 10.2 % (3-13); PLATELET COUNT 314 10^3/uL (150-450); RED CELL DISTRIBUTION WIDTH 15.6 % (11.5-14.0); SEGMENTED NEUTROPHILS % (AUTO) 72.3 % (42-78); TOTAL CELLS COUNTED % (AUTO) 100 %; WHITE BLOOD COUNT 4.8 10^3/uL (4.0-10.5)
[2019-04-14 17:56] LABS: ALBUMIN 4.1 g/dL (3.5-5.0); ALKALINE PHOSPHATASE 115 U/L (38-126); ANION GAP 13 (5-19); ASPARTATE AMINO TRANSFERASE 38 U/L (17-59); BILIRUBIN,DIRECT 0.2 mg/dL (0.0-0.4); BILIRUBIN,TOTAL 0.5 mg/dL (0.2-1.3); BLOOD UREA NITROGEN 50 mg/dL (7-20); CALCIUM 9.2 mg/dL (8.4-10.2); CARBON DIOXIDE 18 mmol/L (22-30); CHLORIDE 107 mmol/L (98-107); GLUCOSE 88 mg/dL (75-110); POTASSIUM 5.1 mmol/L (3.6-5.0)
[2019-04-14 17:57] LABS: ACETAMINOPHEN < 10 ug/mL (10-30); ALCOHOL < 10 mg/dL (NONE DETECTED); SALICYLATE < 1.0 mg/dL (2.0-20.0)
[2019-04-14] MEDS ORDERED: NORMAL SALINE 1000 ML 1,000 ML IV ONE ×2 (20:42→21:31)
--- NOTE | 2019-04-14 20:42 | ER Document Report ---
ED General - General Chief Complaint: Psych Problem Stated Complaint: WEAKNESS Time Seen by Provider: 04/14/19 16:08 Primary Care Provider: OPAL BRADFORD PA-C [NO LOCAL MD] - Follow up as needed Mode of Arrival: Ambulatory Notes: Patient is a 63-year-old male with depression and diabetes that presents to the emergency department for chief complaint of generalized weakness, and suicidal ideation. Patient states her last few days has been having nausea, vomiting diarrhea, and got dehydrated, he went to get some food at a restaurant today, and he went to go to go the bathroom felt so weak he could get back to the [place] so he asked which is to call 911. He states he really has not had anything to eat in the last 3 days. His nausea and diarrhea have since resolved and he is feeling better from that regard, but does still feel generally weak. He also states his been having suicidal ideations, he recently found out his brother has pancreatic cancer, and he states that he would drive to an uninhibited area, and put himself in a diabetic coma. He has had depressive thoughts in the past, he states that they have been escalating more recently, he lives alone, and does not feel safe at home. He denies having any chest pain, shortness of breath, fevers, chills, night sweats, dysuria, hematuria or abdominal pain. Past Medical History: Diabetes, depression Past Surgical History: Multiple toe amputations Social History: Admits to smoking cigarettes, denies alcohol or drug use. Family History: Reviewed and noncontributory for presenting illness Allergies: Reviewed, see documented allergy list. REVIEW OF SYSTEMS: Other than noted above, the 12 point review of systems was reviewed with the patient and were negative, all pertinent findings are included in the HPI. PHYSICAL EXAMINATION: Vital signs reviewed, nursing noted reviewed. GENERAL: Well-appearing, well-nourished and in no acute distress. HEAD: Atraumatic, normocephalic. EYES: Eyes appear normal, extraocular movements intact, sclera anicteric, conjunctiva are normal. ENT: nares patent, oropharynx clear without exudates. Moist mucous membranes. NECK: Normal range of motion, supple without lymphadenopathy LUNGS: Breath sounds clear to auscultation bilaterally and equal. No wheezes rales or rhonchi. HEART: Regular rate and rhythm without murmurs ABDOMEN: Soft, nontender, normoactive bowel sounds. No rebound, guarding, or rigidity. No masses appreciated. EXTREMITIES: Lower extremity toe amputations noted, no signs of acute infection. Nontender, good range of motion, no pitting or edema. NEUROLOGICAL: No focal neurological deficits. Moves all extremities spontaneously Motor and sensory grossly intact on exam. PSYCH: Somewhat dysphoric mood, but does answer questions appropriately, poor insight, but does have good eye contact when answering questions. SKIN: Warm, Dry, normal turgor, no rashes or lesions noted on exposed skin TRAVEL OUTSIDE OF THE [place] IN LAST 30 DAYS: No - Related Data Allergies/Adverse Reactions: No Known Allergies Allergy (Verified 04/14/19 15:54) Past Medical History - General Information source: Patient - Social History Smoking Status: Current Every Day Smoker Chew tobacco use (# tins/day): No Frequency of alcohol use: Occasional Drug Abuse: None Family History: Reviewed & Not Pertinent, DM Patient has suicidal ideation: Yes Patient has homicidal ideation: No - Past Medical History Cardiac Medical History: Reports: Hx Hypertension Denies: Hx Coronary Artery Disease, Hx Heart Attack Pulmonary Medical History: Denies: Hx Asthma, Hx Bronchitis, Hx COPD, Hx Pneumonia Neurological Medical History: Denies: Hx Cerebrovascular Accident, Hx Seizures Endocrine Medical History: Reports: Hx Diabetes Mellitus Type 2 - non compliant with medications Renal/ Medical History: Denies: Hx Peritoneal Dialysis Musculoskeletal Medical History: Denies Hx Arthritis Psychiatric Medical History: Reports: Hx Depression Past Surgical History: Reports: Other - Multiple toe amputations - Immunizations Hx Diphtheria, Pertussis, Tetanus Vaccination: No Hx Pneumococcal Vaccination: 09/26/13 Physical Exam - Vital signs Vitals: Temp Pulse Resp BP Pulse Ox 97.8 F 80 18 112/65 94 04/14/19 15:59 04/14/19 15:59 04/14/19 15:59 04/14/19 15:59 04/14/19 15:59 Course - Re-evaluation Re-evalutation: Patient seen and examined, vital signs reviewed. Medical screening testing was ordered including bloodwork, EKG, and toxicology. Results of testing were reviewed. Testing demonstrated a mild acute on chronic kidney injury, patient was dosed with IV fluids, total 2 L, I repeated his blood work after he received about a liter and a half of fluid, and his renal function was improving, near his baseline. Patient has been stable from a hemodynamic standpoint. At this point I feel that the patient is medically cleared and can be further evaluated from a psychiatric standpoint for final disposition from the emergency department. Patient updated on plan of care. Laboratory 04/14/19 04/14/19 04/14/19 17:08 17:08 20:30 WBC 4.8 RBC 3.80 L Hgb 11.0 L Hct 32.9 L MCV 87 MCH 28.9 MCHC 33.4 RDW 15.6 H Plt Count 314 Lymph % (Auto) 16.4 [place] % (Auto) 10.2 Eos % (Auto) 0.5 Baso % (Auto) 0.6 Absolute Neuts (auto) 3.5 Absolute Lymphs (auto) 0.8 Absolute Monos (auto) 0.5 Absolute Eos (auto) 0.0 Absolute Basos (auto) 0.0 Seg Neutrophils % 72.3 Sodium 137.7 Potassium 5.1 H Chloride 107 Carbon Dioxide 18 L Anion Gap 13 BUN 50 H Creatinine 2.63 H Est GFR ( Amer) 30 L Est GFR (MDRD) Non-Af 25 L Glucose 88 POC Glucose Calcium 9.2 Total Bilirubin 0.5 Direct Bilirubin 0.2 Neonat Total Bilirubin Not Reportable Neonat Direct Bilirubin Not Reportable Neonat Indirect Bili Not Reportable AST 38 ALT 22 Alkaline Phosphatase 115 Total Protein 8.0 Albumin 4.1 Urine Color YELLOW Urine Appearance CLEAR Urine pH 5.0 Ur Specific [place] 1.014 Urine Protein 100 H Urine Glucose (UA) 50 H Urine Ketones NEGATIVE Urine Blood SMALL H Urine Nitrite NEGATIVE Urine Bilirubin NEGATIVE Urine Urobilinogen NEGATIVE Ur Leukocyte Esterase TRACE H Urine WBC 10-20 Ur Squamous Epith Cells FEW Urine Bacteria TRACE Urine Ascorbic Acid NEGATIVE Salicylates < 1.0 L Urine Opiates Screen Urine Methadone Screen Acetaminophen < 10 L Ur Barbiturates Screen Ur Phencyclidine Scrn Ur Amphetamines Screen U Benzodiazepines Scrn Urine Cocaine Screen U Marijuana (THC) Screen Serum Alcohol < 10 04/14/19 04/14/19 04/15/19 20:30 23:18 04:35 WBC RBC Hgb Hct MCV MCH MCHC RDW Plt Count Lymph % (Auto) [place] % (Auto) Eos % (Auto) Baso % (Auto) Absolute Neuts (auto) Absolute Lymphs (auto) Absolute Monos (auto) Absolute Eos (auto) Absolute Basos (auto) Seg Neutrophils % Sodium 139.1 Potassium 4.6 Chloride 114 H Carbon Dioxide 18 L Anion Gap 7 BUN 44 H Creatinine 2.28 H Est GFR ( Amer) 35 L Est GFR (MDRD) Non-Af 29 L Glucose 85 POC Glucose 129 H Calcium 8.4 Total Bilirubin Direct Bilirubin Neonat Total Bilirubin Neonat Direct Bilirubin Neonat Indirect Bili AST ALT Alkaline Phosphatase Total Protein Albumin Urine Color Urine Appearance Urine pH Ur Specific [place] Urine Protein Urine Glucose (UA) Urine Ketones Urine Blood Urine Nitrite Urine Bilirubin Urine Urobilinogen Ur Leukocyte Esterase Urine WBC Ur Squamous Epith Cells Urine Bacteria Urine Ascorbic Acid Salicylates Urine Opiates Screen NEGATIVE Urine Methadone Screen NEGATIVE Acetaminophen Ur Barbiturates Screen NEGATIVE Ur Phencyclidine Scrn NEGATIVE Ur Amphetamines Screen NEGATIVE U Benzodiazepines Scrn NEGATIVE Urine Cocaine Screen NEGATIVE U Marijuana (THC) Screen NEGATIVE Serum Alcohol - Vital Signs Vital signs: Temp Pulse Resp BP Pulse Ox 97.8 F 69 20 148/73 H 100 04/14/19 21:00 04/14/19 21:00 04/14/19 21:00 04/14/19 21:00 04/14/19 21:00 - Laboratory Result Diagrams: 04/14/19 17:08 04/15/19 04:35 Laboratory results interpreted by me: 04/14/19 04/14/19 04/14/19 17:08 17:08 20:30 RBC 3.80 L Hgb 11.0 L Hct 32.9 L RDW 15.6 H Potassium 5.1 H Chloride Carbon Dioxide 18 L BUN 50 H Creatinine 2.63 H Est GFR ( Amer) 30 L Est GFR (MDRD) Non-Af 25 L POC Glucose Urine Protein 100 H Urine Glucose (UA) 50 H Urine Blood SMALL H Ur Leukocyte Esterase TRACE H Salicylates < 1.0 L Acetaminophen < 10 L 04/14/19 04/15/19 23:18 04:35 RBC Hgb Hct RDW Potassium Chloride 114 H Carbon Dioxide 18 L BUN 44 H Creatinine 2.28 H Est GFR ( Amer) 35 L Est GFR (MDRD) Non-Af 29 L POC Glucose 129 H Urine Protein Urine Glucose (UA) Urine Blood Ur Leukocyte Esterase Salicylates Acetaminophen - EKG Interpretation by Me Additional EKG results interpreted by me: EKG demonstrates sinus rhythm with a ventricular rate of 68 bpm, normal axis, QTC 473 ms, no evidence of acute ischemia in this EKG, this is compared to prior EKG from 03/15/2019, without significant change. Discharge - Discharge Clinical Impression: Acute kidney injury superimposed on CKD, Suicidal ideations Condition: Stable Disposition: PSYCH HOSP/UNIT Referrals: OPAL BRADFORD PA-C [NO LOCAL MD] - Follow up as needed
[2019-04-14 20:56] LABS: APPEARANCE,URINE CLEAR; BILIRUBIN,URINE NEGATIVE (NEGATIVE); COLOR,URINE YELLOW; GLUCOSE, URINE 50 mg/dL (NEGATIVE); KETONES,URINE NEGATIVE (NEGATIVE); LEUKOCYTE ESTERASE,URINE TRACE (NEGATIVE); NITRITE,URINE NEGATIVE (NEGATIVE); PROTEIN,URINE 100 mg/dL (NEGATIVE); URINE SPECIFIC GRAVITY 1.014; UROBILINOGEN,URINE NEGATIVE mg/dL (<2.0)
[2019-04-14 21:03] LABS: ADD MANUAL MICROSCOPIC YES
[2019-04-14 21:06] LABS: BACTERIA,URINE TRACE /HPF
[2019-04-14 21:16] LABS: URINE AMPHETAMINES SCREEN NEGATIVE; URINE BARBITURATES SCREEN NEGATIVE; URINE BENZODIAZEPINES SCREEN NEGATIVE; URINE COCAINE SCREEN NEGATIVE; URINE MARIJUANA (THC) SCREEN NEGATIVE; URINE METHADONE SCREEN NEGATIVE; URINE PHENCYCLIDINE SCREEN NEGATIVE
[2019-04-15 05:09] LABS: ANION GAP 7 (5-19); BLOOD UREA NITROGEN 44 mg/dL (7-20); CALCIUM 8.4 mg/dL (8.4-10.2); CARBON DIOXIDE 18 mmol/L (22-30); CHLORIDE 114 mmol/L (98-107); GLUCOSE 85 mg/dL (75-110); POTASSIUM 4.6 mmol/L (3.6-5.0)
--- NOTE | 2019-04-15 08:46 | EKG REPORT ---
SEVERITY:- NORMAL ECG - SINUS RHYTHM : Confirmed by: Kailee Stuart MD 15-Apr-2019 08:46:08
--- NOTE | 2019-04-15 08:57 | PSYCHOLOGICAL NOTE ---
Psych Note - Psych Note Date seen by psych provider: 04/15/19 Time seen by psych provider: 07:40 Psych Note: Reason for Consult:Suicidal ideation pt presents to ER with c/o SI. 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 pt states his [place] diabetic coma. pt states hx of depression. pt states the past few days it has been getting worse and he needs help. Patient reports he called EMS because he was "violently sick, had mental issues, [place] of things." He reports he has been severely depressed and had thoughts about hurting himself. He denies any history of suicide attempts and states that his thoughts come and go. Patient states that he does not have an outpatient mental health provider however discloses that he has and an appointment coming up on the however is unable to tell me who it is with. Patient states that he was started on medications but ran out. Clinician notes patient has a history of noncompliance with medications. Patient states he cannot "pinpoint triggers but yesterday I did learn my brother has stage IV cancer." Patient is alert and orientated to person, place, time and circumstance. Mood is dysphoric with congruent affect. Patient endorses passive suicidal ideation i.e. no plans means or intent. Patient denies homicidal ideation. Delusions are absent behaviors congruent with an intact reality based presentation I organized and linear thought process. Eye contact is fair. Conversational speech is within normal rate, tone and prosody. Intellectual abilities appear to be within the average range. Attention and concentration are good. Insight, judgment, impulse control are fair. Diagnosis: V60.0 (Z59.0) Homelessness 311 (F32.9) Unspecified Depressive Disorder- patient reports depression for less than 30 days Alcohol Use Disorder, Severe per history: Patient is noted to have no alcohol in his system during his last to [facility] visits No medication recommendations at this time Impression\\plan: Patient is cleared from acute psychiatric services. Patient reports passive suicidal ideation i.e. no plans means or intent. Patient was seen last month, 03/16/2019, after he was discharged from inpatient psychiatric treatment. He had not followed up with outpatient services since his discharge from inpatient or being seen here at [facility]. At this time, it would be more appropriate for the patient to obtain outpatient services for both medication management and therapeutic services. Patient discloses depression that appears to be stemming from social difficulties. Economic resource information has been provided to the patient to assist in both financial and housing previously, and will be provided again today. Patient is recommended to obtain an outpatient mental health provider; local resource list of area providers have been provided to the patient including mobile crisis contact information. Dr. Ramachandran was consulted and the care and management of this patient; attending physician is agreement with recommendations and disposition.
[2019-04-15 15:41] VITALS: BP 170/92
== END 2019-04-15 13:45 | disposition home or self-care (01) ==
LOC: ER 15:30
DX: N17.9 Acute kidney failure, unspecified (principal); R45.851 Suicidal ideations; R53.1 Weakness; R11.2 Nausea with vomiting, unspecified; R19.7 Diarrhea, unspecified; Z59.0 Homelessness; F17.210 Nicotine dependence, cigarettes, uncomplicated; F32.9 Major depressive disorder, single episode, unspecified; I10 Essential (primary) hypertension; E11.9 Type 2 diabetes mellitus without complications
CPT/HCPCS: 93005; 99285; 96360; 96361; 36415; 82962; 80307 ×4; 85025; 80048; 80053; 81001; 93010; J7030

== ENCOUNTER 2019-05-17 19:03 | Inpatient (IN) | payer MEDICARE ==
[2019-05-17] MEDS ORDERED: NORMAL SALINE 1000 ML 1,000 ML IV ONE (20:25)
--- NOTE | 2019-05-17 20:31 | ER Document Report ---
ED General - General Chief Complaint: Foot Pain Stated Complaint: RIGHT FOOT PAIN Time Seen by Provider: 05/17/19 19:16 Notes: Patient is a 63-year-old male with multiple medical conditions including diabetes mellitus, peripheral vascular disease and hypertension that presents to the emergency department for chief complaint of right foot pain. Patient states over the last 4 days his right foot has become more red and inflamed and painful. He has an ulcer that is been on the bottom of his foot for some time and he thinks is getting worse he is not getting any treatment for it currently. He thinks his foot is more swollen and felt warmer as well. He states he is unable to put weight on his foot and is having a hard time getting around at home. He currently rates his pain as a 9 out of 10 describes as a constant throbbing sensation in his right foot. He has had prior amputations of toes on the foot due to infection. Past Medical History: Diabetes mellitus, peripheral vascular disease, hypertension Past Surgical History: Multiple toe amputations Social History: Admits to smoking cigarettes, denies alcohol or drug use. Family History: Reviewed and noncontributory for presenting illness Allergies: Reviewed, see documented allergy list. REVIEW OF SYSTEMS: Other than noted above, the 12 point review of systems was reviewed with the patient and were negative, all pertinent findings are included in the HPI. PHYSICAL EXAMINATION: Vital signs reviewed, nursing noted reviewed. GENERAL: Appears older than stated age, no acute distress HEAD: Atraumatic, normocephalic. EYES: Eyes appear normal, extraocular movements intact, sclera anicteric, conjunctiva are normal. ENT: nares patent, oropharynx clear without exudates. Moist mucous membranes. NECK: Normal range of motion, supple without lymphadenopathy LUNGS: Breath sounds clear to auscultation bilaterally and equal. No wheezes rales or rhonchi. HEART: Regular rate and rhythm without murmurs ABDOMEN: Soft, nontender, normoactive bowel sounds. No rebound, guarding, or rigidity. No masses appreciated. EXTREMITIES: Right foot is noted to have the third fourth and fifth digits amputated, there is a plantar ulcer noted, does not probe particularly deep, there is surrounding erythema to the entire foot and is tender to palpate and does feel warm to touch. There is some redness extending up the leg proximally as well. And there is tenderness to palpation of this area as well. The rest the patient's extremity exam is grossly unremarkable, aside from prior amputations on the left foot as well of the toes. NEUROLOGICAL: No focal neurological deficits. Moves all extremities spontaneously Motor and sensory grossly intact on exam. PSYCH: Normal mood, normal affect. SKIN: Warm, Dry, normal turgor TRAVEL OUTSIDE OF THE [place] IN LAST 30 DAYS: No - Related Data Allergies/Adverse Reactions: No Known Allergies Allergy (Verified 04/14/19 15:54) Past Medical History - Social History Smoking Status: Current Every Day Smoker Chew tobacco use (# tins/day): No Frequency of alcohol use: None Drug Abuse: None Family History: Reviewed & Not Pertinent, DM Patient has suicidal ideation: No Patient has homicidal ideation: No - Past Medical History Cardiac Medical History: Reports: Hx Hypertension Denies: Hx Coronary Artery Disease, Hx Heart Attack Pulmonary Medical History: Denies: Hx Asthma, Hx Bronchitis, Hx COPD, Hx Pneumonia Neurological Medical History: Denies: Hx Cerebrovascular Accident, Hx Seizures Endocrine Medical History: Reports: Hx Diabetes Mellitus Type 2 - non compliant with medications Renal/ Medical History: Denies: Hx Peritoneal Dialysis Musculoskeletal Medical History: Denies Hx Arthritis Psychiatric Medical History: Reports: Hx Depression Past Surgical History: Reports: Other - Multiple toe amputations - Immunizations Hx Diphtheria, Pertussis, Tetanus Vaccination: No Hx Pneumococcal Vaccination: 09/26/13 Physical Exam - Vital signs Vitals: Resp 05/17/19 19:09 Course - Re-evaluation Re-evalutation: Patient seen and examined vital signs reviewed. Laboratory data and imaging were ordered as appropriate for the patient's presenting symptoms and complaint, with consideration of any critical or life threatening conditions that may be associated with their obtained history and exam as noted above. Patient was treated with IV fluids and IV Zosyn and vancomycin Results were reviewed when available and demonstrated elevated CRP and sed rate, x-ray was not convincing of osteomyelitis, I did consult the surgeon to take a look at this patient he recommended IV antibiotics but no surgical intervention at this time and recommended wound care for the patient's foot ulcer. The patient was re-evaluated and was stable and improved Evaluation was most consistent with right foot cellulitis and ulcer Results were discussed with the patient at this point after careful consideration I feel that that patient should be admitted to the hospital. This was discussed with the patient that it is in the best interest for their care to be admitted for further evaluation and management. Patient agreed with this plan of care. A call was placed to the admitting physician, Dr. Hodges who graciously accepted the patient onto their service. *Note is created using voice recognition software and may contain spelling, syntax or grammatical errors. Laboratory 05/17/19 05/17/19 05/17/19 19:08 19:09 19:09 WBC 6.9 RBC 3.84 L Hgb 11.3 L Hct 33.7 L MCV 88 MCH 29.4 MCHC 33.6 RDW 15.8 H Plt Count 205 Lymph % (Auto) 19.4 [place] % (Auto) 8.8 Eos % (Auto) 0.5 Baso % (Auto) 0.3 Absolute Neuts (auto) 4.9 Absolute Lymphs (auto) 1.3 Absolute Monos (auto) 0.6 Absolute Eos (auto) 0.0 Absolute Basos (auto) 0.0 Seg Neutrophils % 71.0 ESR 51 H Sodium 134.1 L Potassium 5.2 H Chloride 101 Carbon Dioxide 21 L Anion Gap 12 BUN 36 H Creatinine 2.67 H Est GFR ( Amer) 29 L Est GFR (MDRD) Non-Af 24 L Glucose 64 L POC Glucose 61 L Calcium 9.3 Total Bilirubin 0.4 Direct Bilirubin 0.2 Neonat Total Bilirubin Not Reportable Neonat Direct Bilirubin Not Reportable Neonat Indirect Bili Not Reportable AST 79 H ALT 34 Alkaline Phosphatase 108 C-Reactive Protein 56.4 H Total Protein 8.0 Albumin 3.7 TSH Free T4 Free T3 pg/mL 05/17/19 19:09 WBC RBC Hgb Hct MCV MCH MCHC RDW Plt Count Lymph % (Auto) [place] % (Auto) Eos % (Auto) Baso % (Auto) Absolute Neuts (auto) Absolute Lymphs (auto) Absolute Monos (auto) Absolute Eos (auto) Absolute Basos (auto) Seg Neutrophils % ESR Sodium Potassium Chloride Carbon Dioxide Anion Gap BUN Creatinine Est GFR ( Amer) Est GFR (MDRD) Non-Af Glucose POC Glucose Calcium Total Bilirubin Direct Bilirubin Neonat Total Bilirubin Neonat Direct Bilirubin Neonat Indirect Bili AST ALT Alkaline Phosphatase C-Reactive Protein Total Protein Albumin TSH 0.85 Free T4 1.62 Free T3 pg/mL 4.98 Foot X-Ray 05/17/19 20:25 IMPRESSION: 1. Cutaneous wound plantar to the 1st MTP joint, with associated soft tissue edema. 2. No radiographic evidence for osteomyelitis - Vital Signs Vital signs: Temp Pulse Resp BP Pulse Ox 98.7 F 14 160/72 H 99 05/18/19 01:39 05/18/19 03:01 05/18/19 03:00 05/18/19 03:01 - Laboratory Result Diagrams: 05/17/19 19:09 05/17/19 19:09 Laboratory results interpreted by me: 05/17/19 05/17/19 05/17/19 19:08 19:09 19:09 RBC 3.84 L Hgb 11.3 L Hct 33.7 L RDW 15.8 H ESR 51 H Sodium 134.1 L Potassium 5.2 H Carbon Dioxide 21 L BUN 36 H Creatinine 2.67 H Est GFR ( Amer) 29 L Est GFR (MDRD) Non-Af 24 L Glucose 64 L POC Glucose 61 L AST 79 H C-Reactive Protein 56.4 H Discharge - Discharge Clinical Impression: Cellulitis Qualifiers: Site of cellulitis: extremity Site of cellulitis of extremity: lower extremity Laterality: right Qualified Code(s): L03.115 - Cellulitis of right lower limb Diabetic foot ulcer Qualifiers: Diabetic foot ulcer location: other Diabetes mellitus type: type 2 Laterality: right Non-pressure ulcer stage: unspecified non-pressure ulcer stage Qualified Code(s): E11.621 - Type 2 diabetes mellitus with foot ulcer; L97.519 - Non-pres sure chronic ulcer of other part of right foot with unspecified severity Condition: Stable Disposition: ADMITTED INPATIENT Admitting Provider: Carroll (Hospitalist) Unit Admitted: Medical Floor
[2019-05-17] MEDS ORDERED: MORPHINE SULFATE 10 MG/ML INJ IV ONE (20:48)
[2019-05-17] MEDS ORDERED: ONDANSETRON HCL INJ/PF 4 MG/2 ML SDV IV ONE (20:48)
[2019-05-17 20:50] LABS: ALBUMIN 3.7 g/dL (3.5-5.0); ALKALINE PHOSPHATASE 108 U/L (38-126); ANION GAP 12 (5-19); ASPARTATE AMINO TRANSFERASE 79 U/L (17-59); BILIRUBIN,DIRECT 0.2 mg/dL (0.0-0.4); BILIRUBIN,TOTAL 0.4 mg/dL (0.2-1.3); BLOOD UREA NITROGEN 36 mg/dL (7-20); C-REACTIVE PROTEIN 56.4 mg/L (<10.0); CALCIUM 9.3 mg/dL (8.4-10.2); CARBON DIOXIDE 21 mmol/L (22-30); CHLORIDE 101 mmol/L (98-107); POTASSIUM 5.2 mmol/L (3.6-5.0)
[2019-05-17 20:55] LABS: GLUCOSE 64 mg/dL (75-110)
[2019-05-17 21:01] LABS: ABSOLUTE LYMPHOCYTES (AUTO) 1.3 10^3/uL (0.5-4.7); ABSOLUTE MONOCYTES (AUTO) 0.6 10^3/uL (0.1-1.4); ABSOLUTE NEUT (AUTO) 4.9 10^3/uL (1.7-8.2); BASOPHILS % (AUTO) 0.3 % (0-2); EOSINOPHILS % (AUTO) 0.5 % (0-6); HEMATOCRIT 33.7 % (37.9-51.0); HEMOGLOBIN 11.3 g/dL (13.5-17.0); LYMPHOCYTES % (AUTO) 19.4 % (13-45); MEAN CORPUSCULAR HEMOGLOBIN 29.4 pg (27.0-33.4); MEAN CORPUSCULAR HGB CONC 33.6 g/dL (32.0-36.0); MEAN CORPUSCULAR VOLUME 88 fl (80-97); MONOCYTES % (AUTO) 8.8 % (3-13); PLATELET COUNT 205 10^3/uL (150-450); RED BLOOD COUNT 3.84 10^6/uL (4.35-5.55); RED CELL DISTRIBUTION WIDTH 15.8 % (11.5-14.0); TOTAL CELLS COUNTED % (AUTO) 100 %; WHITE BLOOD COUNT 6.9 10^3/uL (4.0-10.5)
--- NOTE | 2019-05-17 21:34 | RADIOLOGY REPORT (SQ) ---
EXAM DESCRIPTION: Right foot RadLex: XR FOOT 3 OR MORE VIEWS Views: 3 CLINICAL HISTORY: 63 years Male, right foot pain COMPARISON: None. FINDINGS: There has been previous surgical removal of much of the 5th metatarsal as well as the 3rd and 4th phalanges. Soft tissue edema is noted plantar to the 1st MTP joint, with ulceration. There are no associated lytic bone changes. No acute fractures. Vascular calcifications are noted. Small plantar calcaneal spur is present. IMPRESSION: 1. Cutaneous wound plantar to the 1st MTP joint, with associated soft tissue edema. 2. No radiographic evidence for osteomyelitis
[2019-05-17] MEDS ORDERED: PIPERACILLIN/TAZOBACTAM 3.375 GM VIAL IV ONE (21:46)
[2019-05-17] MEDS ORDERED: VANCOMYCIN HCL INJ 1000 MG VIAL IV ONE (21:46)
[2019-05-17 21:50] LABS: ERYTHROCYTE SEDIMENTATION RATE 51 mm/hr (0-20)
--- NOTE | 2019-05-17 22:46 | PDOC CONSULTATION ---
Consultation Consult Date: 05/17/19 Provider Consulted: MYRON MICHAELS Consult reason:: Painful right foot ulcer History of Present Illness History of Present Illness: ANTHONY PAZ is a 63 year old male with history of [id number] diabetes mellitus noted to have an ulcer along the right foot for the past 4months. In the past 4 days patient has been complaining of pains and decided to come to ED. He claims she could barely walk because of the pains. Denies any fever nor chills. Denies any discharge. He had a previous right third fo urth and fifth toes and fifth meta metatarsal amputations in the past. He claims he has not consulted any physician for this ulcer in the past. Past Medical History Cardiac Medical History: Reports: Hypertension Denies: Coronary Artery Disease, Myocardial Infarction Pulmonary Medical History: Denies: Asthma, Bronchitis, Chronic Obstructive Pulmonary Disease (COPD), Pneumonia Neurological Medical History: Denies: Seizures Endocrine Medical History: Reports: Diabetes Mellitus Type 2 - non compliant with medications Musculoskeltal Medical History: Denies: Arthritis Psychiatric Medical History: Reports: Depression Hematology: Denies: Anemia Past Surgical History Past Surgical History: Reports: Other - Multiple toe amputations Social History Smoking Status: Current Every Day Smoker Electronic Cigarette use?: No Frequency of Alcohol Use: None Hx Recreational Drug Use: No Hx Prescription Drug Abuse: No Family History Family History: Reviewed & Not Pertinent, DM Parental Family History Reviewed: Yes Children Family History Reviewed: No Sibling(s) Family History Reviewed.: No Medication/Allergy Home Medications: Metformin HCl [Glucophage] 500 mg PO DAILY #30 tablet 07/14/13 Oxycodone HCl/Acetaminophen [Percocet 5-325 mg Tablet] 1 tab PO Q4HP PRN Chlordiazepoxide HCl [Librium 25 mg Capsule] 1 - 2 cap PO QID PRN #20 capsule 02/24/16 Allergies/Adverse Reactions: No Known Allergies Allergy (Verified 04/14/19 15:54) Review of Systems Constitutional: PRESENT: as per HPI Musculoskeletal: PRESENT: as per HPI Neurological: PRESENT: paresthesias - Both feet Physical Exam Vital Signs: Temp Pulse Resp BP Pulse Ox 98.5 F 14 05/17/19 19:18 05/17/19 19:09 Intake & Output 05/16/19 05/17/19 05/18/19 06:59 06:59 06:59 Intake Total 1000 Balance 1000 Weight 70.307 kg General appearance: PRESENT: mild distress Head exam: PRESENT: atraumatic Eye exam: PRESENT: conjunctiva pink Neck exam: PRESENT: full ROM Respiratory exam: PRESENT: clear to auscultation simona Cardiovascular exam: PRESENT: RRR Pulses: PRESENT: normal dorsalis pedis pul Vascular exam: PRESENT: normal capillary refill Extremities exam: PRESENT: other - There is a dry 1.5 cm ulcer opposite the first metatarsophalangeal joint area. No abscess noted. There is some mild erythema around it Healed scars along the anterior below the knee and around ankle area. This may be from previous fasciotomy sites. There are good dorsalis pedis artery and posterior tibial artery pulses along the right side Neurological exam: PRESENT: alert, oriented to person, oriented to place, oriented to time, oriented to situation Psychiatric exam: PRESENT: appropriate affect Skin exam: PRESENT: normal color, warm Results Laboratory Results: 05/17/19 19:09 05/17/19 19:09 05/17/19 05/17/19 19:09 19:09 WBC 6.9 RBC 3.84 L Hgb 11.3 L Hct 33.7 L MCV 88 MCH 29.4 MCHC 33.6 RDW 15.8 H Plt Count 205 Seg Neutrophils % 71.0 Sodium 134.1 L Potassium 5.2 H Chloride 101 Carbon Dioxide 21 L Anion Gap 12 BUN 36 H Creatinine 2.67 H Est GFR ( Amer) 29 L Glucose 64 L Calcium 9.3 Total Bilirubin 0.4 AST 79 H Alkaline Phosphatase 108 C-Reactive Protein 56.4 H Total Protein 8.0 Albumin 3.7 Impressions: Foot X-Ray 05/17/19 20:25 IMPRESSION: 1. Cutaneous wound plantar to the 1st MTP joint, with associated soft tissue edema. 2. No radiographic evidence for osteomyelitis Assessment & Plan - Diagnosis (1) ulcer right foot with cellulitis Is this a current diagnosis for this admission?: Yes (2) Type II diabetes mellitus with manifestations Is this a current diagnosis for this admission?: Yes - Time Time Spent: 30 to 50 Minutes - Inpatient Certification Medical Necessity: Need for IV Antibiotics - Plan Summary Plan Summary: This is a 63-year-old type II diabetic with a history of amputation of the toes in both feet and right lower leg fasciotomy. He has a chronic ulcer along the right foot on the plantar side opposite the first MP joint which she claims was asymptomatic for the past 4 months but the past 4 days started to complain of pains with him not able to ambulate well. The ulcer itself appears dry and low views abscess or osteomyelitis on x-ray. He may have a starting cellulitis and will need IV antibiotics as well as physical therapy to teach him how to ambulate without placing much pressure on the right foot and or wearing special boot. There is no need for any debridement at this time. He definitely needs to be followed up at the wound care center as far as further management of the right foot ulcer.
[2019-05-18] MEDS ORDERED: ONDANSETRON 4 MG TAB.RAPDIS PO PRN (00:26)
[2019-05-18] MEDS ORDERED: TEMAZEPAM 15 MG CAPSULE PO PRN (00:26)
[2019-05-18] MEDS ORDERED: LEVALBUTEROL HCL NEB 0.63 MG/3 ML AMPUL NEB PRN (00:26)
[2019-05-18] MEDS ORDERED: ONDANSETRON HCL INJ/PF 4 MG/2 ML SDV IV PRN (00:26)
[2019-05-18] MEDS ORDERED: MAG HYDROX/AL HYDROX/SIMETH SUSP 30 ML UDCUP PO PRN (00:26)
[2019-05-18] MEDS ORDERED: MAGNESIUM HYDROXIDE SUSP 30 ML UDCUP PO PRN (00:26)
[2019-05-18] MEDS ORDERED: NICOTINE 21 MG/24 HR PATCH.TD24 TD PRN (00:32)
[2019-05-18] MEDS ORDERED: ACETAMINOPHEN 325 MG TABLET PO PRN (00:32)
[2019-05-18] MEDS ORDERED: NALBUPHINE HCL INJ 10 MG/1 ML AMPULE IV PRN (00:32)
[2019-05-18] MEDS ORDERED: INSULIN REG, HUMAN 100 UNIT/ML 3 ML VIAL (PYX) SUBCUT PRN (00:32)
[2019-05-18] MEDS ORDERED: DIAZEPAM INJ 10 MG/2 ML DISP.SYRIN IV PRN (00:34)
[2019-05-18] MEDS ORDERED: GLUCAGON,HUMAN RECOMB 1 MG INJ IM PRN (00:37)
[2019-05-18] MEDS ORDERED: DEXTROSE 50%-WATER 25 GM/50 ML DISP.SYRIN IV PRN ×2 (00:37)
[2019-05-18] MEDS ORDERED: DEXTROSE 40% GEL 15 GM TUBE PO PRN ×2 (00:37)
[2019-05-18] MEDS ORDERED: PIPERACILLIN/TAZOBACTAM 3.375 GM VIAL IV SCH (00:45)
[2019-05-18] MEDS ORDERED: VANCOMYCIN HCL INJ 1000 MG VIAL IV SCH (00:45)
[2019-05-18] MEDS ORDERED: PIPERACILLIN/TAZOBACTAM 3.375 GM VIAL IV PRN (01:14)
[2019-05-18 02:39] LABS: FREE T3 4.98 pg/mL (2.77-5.27); FREE T4 (FREE THYROXINE) 1.62 ng/dL (0.78-2.19)
[2019-05-18 02:53] LABS: THYROID STIMULATING HORMONE 0.85 uIU/mL (0.47-4.68)
[2019-05-18] MEDS: RINGERS SOLUTION,LACTATED 1,000 ML IV PRN ×3 (04:08→21:11)
--- NOTE | 2019-05-18 05:06 | PDOC H&P ---
History of Present Illness Admission Date/PCP: 05/17/19 22:36 No local PCP Patient complains of: Sore on right foot History of Present Illness: ANTHONY PAZ is a 63 year old male who presented to the emergency room with a 4-month history of a sore on his right foot. He admits that his right foot has an ulceration on the sole of the foot which is gradually become larger over the last 4 months. Over the last 3 to 4 days he has developed severe pain, swelling, redness and increased warmth of the right foot making walking or any weightbearing extremely painful and was not relieved well by his Percocet 5/325 at home. He describes the pain as a continuous severe throbbing of the right foot without radiation. The pain becomes exquisitely sharp and severe with any weightbearing. He denies any additional accompanying or associated signs and symptoms. He denies prior similar episodes and has not identified any additional aggravating or ameliorating factors for his right foot ulceration. In the emergency room he was found to have an elevated erythrocyte sedimentation rate at 50 and an elevated CRP at 56 with a normal white blood count and x-rays that showed no evidence of osteomyelitis. He did have evidence of acute on chronic renal insufficiency and was started on intravenous vancomycin and Zosyn. He was subsequently admitted to the hospital for further evaluation treatment. Past Medical History Cardiac Medical History: Reports: Hypertension, Peripheral Vascular Disease Denies: Coronary Artery Disease, Myocardial Infarction Pulmonary Medical History: Denies: Asthma, Bronchitis, Chronic Obstructive Pulmonary Disease (COPD), Pneumonia EENT Medical History: Denies: Cataracts, Ears - Hearing aids Neurological Medical History: Denies: Hemorrhagic CVA, Ischemic CVA, Seizures Endocrine Medical History: Reports: Diabetes Mellitus Type 2 - non compliant with medications Denies: Diabetes Mellitus Type 1, Hyperthyroidism, Hypothyroidism, Obesity Renal/ Medical History: Reports: Chronic Kidney Disease Denies: Nephrolithiasis Malignancy Medical History: Reports: None GI Medical History: Denies: Cirrhosis, Hepatitis Musculoskeltal Medical History: Denies: Arthritis, Gout Skin Medical History: Denies: Eczema, Psoriasis Psychiatric Medical History: Reports: Depression, Tobacco Dependency Denies: Alcohol Dependency, Substance Abuse Traumatic Medical History: Reports: None Hematology: Denies: Anemia, Bleeding Tendencies Infectious Medical History: Reports: None Past Surgical History Past Surgical History: Reports: Vascular Surgery - Amputations: right third, fourth and fifth toes, left second and third toes Social History Information Source: Patient Lives with: Alone Smoking Status: Current Every Day Smoker Electronic Cigarette use?: No Frequency of Alcohol Use: None Hx Recreational Drug Use: No Drugs: None Hx Prescription Drug Abuse: No - Advance Directive Resuscitation Status: Full Code Surrogate healthcare decision maker:: Kasey Paz Family History Family History: Hypertension, Malignancy. denies: CAD, DM Parental Family History Reviewed: Yes Children Family History Reviewed: No Sibling(s) Family History Reviewed.: Yes Medication/Allergy Home Medications: Metformin HCl [Glucophage] 500 mg PO DAILY #30 tablet 07/14/13 Oxycodone HCl/Acetaminophen [Percocet 5-325 mg Tablet] 1 tab PO Q4HP PRN 04/17/14 Chlordiazepoxide HCl [Librium 25 mg Capsule] 1 - 2 cap PO QID PRN #20 capsule 02/24/16 Allergies/Adverse Reactions: No Known Allergies Allergy (Verified 04/14/19 15:54) Review of Systems Constitutional: ABSENT: chills, fever(s) Eyes: ABSENT: visual disturbances, other - Eye pain Ears: ABSENT: hearing changes, other - Ear pain Nose, Mouth, and Throat: ABSENT: headache(s), mouth pain, sore throat Cardiovascular: ABSENT: chest pain, palpitations Respiratory: ABSENT: cough, dyspnea Gastrointestinal: ABSENT: abdominal pain, constipation, diarrhea, nausea, vomiting Genitourinary: ABSENT: dysuria, hematuria Musculoskeletal: PRESENT: as per HPI, other - Painful right foot. ABSENT: back pain, joint swelling, muscle weakness Integumentary: PRESENT: as per HPI, erythema - Right foot with erythema, swelling, pain and increased warmth, wounds - Sole of right foot. ABSENT: p ruritus, rash Neurological: ABSENT: confusion, convulsions, focal weakness, memory loss, syncope Psychiatric: ABSENT: anxiety, depression Endocrine: ABSENT: cold intolerance, heat intolerance Hematologic/Lymphatic: ABSENT: easy bleeding, easy bruising Allergic/Immunologic: ABSENT: seasonal rhinorrhea Physical Exam Vital Signs: Temp Pulse Resp BP Pulse Ox 98.5 F 14 05/17/19 19:18 05/17/19 19:09 Intake & Output 05/15/19 05/16/19 05/17/19 23:59 23:59 23:59 Intake Total 1000 Balance 1000 Weight 70.307 kg General appearance: PRESENT: no acute distress, cooperative Head exam: PRESENT: atraumatic, normocephalic Eye exam: PRESENT: conjunctiva pink. ABSENT: conjunctival injection, scleral icterus Ear exam: PRESENT: normal external ear exam. ABSENT: bleeding, drainage Mouth exam: PRESENT: dry mucosa, neck supple Neck exam: ABSENT: thyromegaly, tracheal deviation Respiratory exam: PRESENT: decreased breath sounds - Mildly decreased breath sounds throughout all joaquin consistent with mild to moderate COPD, prolonged expiratory phas - Mildly prolonged expiratory phase throughout all joaquin, symmetrical, unlabored Cardiovascular exam: PRESENT: RRR. ABSENT: clicks, gallop, rubs Pulses: PRESENT: normal radial pulses, +1 pedal pulses bilateral Vascular exam: PRESENT: normal capillary refill. ABSENT: pallor GI/Abdominal exam: PRESENT: normal bowel sounds, soft. ABSENT: tenderness Rectal exam: PRESENT: deferred Extremities exam: PRESENT: tenderness - Right foot, plantar aspect in area of plantar ulceration (first MP joint).. ABSENT: pedal edema Musculoskeletal exam: PRESENT: other - Right 3rd, 4th and 5th toes + left 2nd and 3rd toes, surgically absent. ABSENT: deformity, dislocation Neurological exam: PRESENT: alert, oriented to person, oriented to place, or iented to time, oriented to situation, CN II-XII grossly intact. ABSENT: motor sensory deficit Psychiatric exam: PRESENT: appropriate affect, normal mood Skin exam: PRESENT: dry, warm, other - There is a 1.5 cm moderate (into subcutaneous fat) depth ulceration of the right plantar surface of the forefoot in the area of the first metatarsal phalangeal joint. With local erythema, edema with tenderness to palpation. Also with mild to moderate eschar formation.. ABSENT: jaundice, rash, urticaria Results Laboratory Results: 05/17/19 19:09 05/17/19 19:09 05/17/19 05/17/19 19:09 19:09 WBC 6.9 RBC 3.84 L Hgb 11.3 L Hct 33.7 L MCV 88 MCH 29.4 MCHC 33.6 RDW 15.8 H Plt Count 205 Seg Neutrophils % 71.0 Sodium 134.1 L Potassium 5.2 H Chloride 101 Carbon Dioxide 21 L Anion Gap 12 BUN 36 H Creatinine 2.67 H Est GFR ( Amer) 29 L Glucose 64 L Calcium 9.3 Total Bilirubin 0.4 AST 79 H Alkaline Phosphatase 108 C-Reactive Protein 56.4 H Total Protein 8.0 Albumin 3.7 Impressions: Foot X-Ray 05/17/19 20:25 IMPRESSION: 1. Cutaneous wound plantar to the 1st MTP joint, with associated soft tissue edema. 2. No radiographic evidence for osteomyelitis Assessment and Plan - Diagnosis (1) Plantar ulcer of right foot Qualifiers: Non-pressure ulcer stage: with fat layer exposed Qualified Code(s): L97.512 - Non-pressure chronic ulcer of other part of right foot with fat layer exposed Is this a current diagnosis for this admission?: Yes Plan: Patient was treated with IV antibiotic therapy and will receive analgesia for his foot discomfort. Physical therapy will be consulted for evaluation and treatment. Surgical consultation has already been obtained by the emergency room physician and the surgeon indicates that there is no surgical intervention to be done at this time. Daily CBCs will be obtained as part of the evaluation. Santyl ointment dressings changed daily will be used initially to remove the eschar and nonviable tissues. (2) Diabetes mellitus type 2 in nonobese Is this a current diagnosis for this admission?: Yes Plan: Patient be continued on his usual diabetic diet and diabetic medications. Hemoglobin A1c will be obtained to assess the efficacy of his current therapy. Before meals and at bedtime Accu-Cheks will be obtained and hyperglycemia will be addressed with a sliding scale insulin regiment and a hypoglycemic protocol will be in place. (3) Peripheral vascular disease Is this a current diagnosis for this admission?: Yes Plan: Patient's peripheral vascular system will be evaluated on a regular basis and any negative vascular events will be addressed immediately. (4) Hypertension Qualifiers: Hypertension type: essential hypertension Qualified Code(s): I10 - Essential (primary) hypertension Is this a current diagnosis for this admission?: Yes Plan: Patient be continued on his current antihypertensive regiment with frequent evaluations of his blood pressure throughout his hospital course. Adjustments will be made to the medical regimen if required. (5) Acute kidney injury superimposed on chronic kidney disease Is this a current diagnosis for this admission?: Yes Plan: Patient will be treated initially with IV fluid and daily metabolic profiles and magnesium levels will be obtained as part of his evaluation. - Time Time Spent with patient: 25-34 minutes Smoking Cessation Education: 3 to 10 minutes Medications reviewed and adjusted accordingly: Yes Anticipated discharge: Home - Inpatient Certification Based on my medical assessment, after consideration of the patient's comorbidities, presenting symptoms, or acuity I expect that the services needed warrant INPATIENT care.: Yes I certify that my determination is in accordance with my understanding of Medicare's requirements for reasonable and necessary INPATIENT services [42 CFR 412.3e].: Yes Medical Necessity: Significant Comorbidiites Make Outpatient Treatment Too Risky, Need Close Monitoring Due to Risk of Patient Decompensation, Need For IV Fluids, Need for Pain Control, Need for IV Antibiotics, Risk of Complication if Not Cared For in Hospital
[2019-05-18] MEDS ORDERED: COLLAGENASE CLOSTRIDIUM HIST. OINT 30 GM ONE (05:11)
[2019-05-18] MEDS: HEPARIN SOD (PORCINE) 5,000 UNIT/ML 1 ML VIAL SUBCUT SCH ×3 (05:23→21:10)
[2019-05-18] MEDS: PANTOPRAZOLE SODIUM 40 MG TABLET.DR PO SCH ×2 (05:24→16:10)
[2019-05-18] MEDS ORDERED: PIPERACILLIN/TAZOBACTAM 3.375 GM VIAL IV ONE ×2 (05:46→06:00)
--- NOTE | 2019-05-18 09:04 | PDOC PROGRESS REPORT ---
Subjective Progress Note for:: 05/18/19 Subjective:: 05/18/2019-continued pain in the plantar surface of the right foot Reason For Visit: CELLULITIS OF RIGHT FOOT, PLANTAR ULCERATION Physical Exam Vital Signs: Temp Pulse Resp BP Pulse Ox 98.1 F 76 14 126/55 H 96 05/18/19 04:04 05/18/19 07:45 05/18/19 07:45 05/18/19 04:04 05/18/19 07:45 Intake & Output 05/17/19 05/18/19 05/19/19 06:59 06:59 06:59 Intake Total 1221 Output Total 75 Balance 1146 Weight 158.6 kg General appearance: PRESENT: no acute distress, well-developed, well-nourished Neck exam: ABSENT: carotid bruit, JVD, lymphadenopathy, thyromegaly Respiratory exam: PRESENT: clear to auscultation simona. ABSENT: rales, rhonchi, wheezes Cardiovascular exam: PRESENT: RRR. ABSENT: diastolic murmur, rubs, systolic mur mur Pulses: PRESENT: +1 pedal pulses bilateral Vascular exam: PRESENT: normal capillary refill GI/Abdominal exam: PRESENT: normal bowel sounds, soft. ABSENT: distended, guarding, mass, organolmegaly, rebound, tenderness Extremities exam: PRESENT: full ROM. ABSENT: calf tenderness, clubbing, pedal edema Neurological exam: PRESENT: alert, awake, oriented to person, oriented to place, oriented to time, oriented to situation, CN II-XII grossly intact. ABSENT: motor sensory deficit Psychiatric exam: PRESENT: appropriate affect, normal mood. ABSENT: homicidal ideation, suicidal ideation Skin exam: PRESENT: other - Dime sized plantar ulcer on the right foot just below the great toe Results Laboratory Results: 05/17/19 19:09 05/17/19 19:09 05/17/19 05/17/19 05/17/19 19:09 19:09 19:09 WBC 6.9 RBC 3.84 L Hgb 11.3 L Hct 33.7 L MCV 88 MCH 29.4 MCHC 33.6 RDW 15.8 H Plt Count 205 Seg Neutrophils % 71.0 Sodium 134.1 L Potassium 5.2 H Chloride 101 Carbon Dioxide 21 L Anion Gap 12 BUN 36 H Creatinine 2.67 H Est GFR ( Amer) 29 L Glucose 64 L Calcium 9.3 Total Bilirubin 0.4 AST 79 H Alkaline Phosphatase 108 C-Reactive Protein 56.4 H Total Protein 8.0 Albumin 3.7 TSH 0.85 Free T4 1.62 Free T3 pg/mL 4.98 Impressions: Foot X-Ray 05/17/19 20:25 IMPRESSION: 1. Cutaneous wound plantar to the 1st MTP joint, with associated soft tissue edema. 2. No radiographic evidence for osteomyelitis Assessment and Plan - Plan Summary Summary: 05/18/2019- Plantar ulcer of right foot-at this time we will continue IV antibiotic therapy await cultures. Patient will receive Percocet for pain. Surgical consultation was obtained with no surgical findings at this time. Continue Santyl ointment dressing changes. Diabetes mellitus type 2 in nonobese-patient was continue on usual diabetic diet and diabetic medications. A1c is pending. Continue Accu-Cheks before meals and at bedtime. Peripheral vascular disease-continue to follow. Stable at this time Hypertension-continue patient on home antihypertensives. Acute kidney injury superposed on chronic kidney disease. Patient was hydrated with IV fluids. This seems to be more chronic in nature than acute. We will continue to follow daily BMPs - Time Time Spent with patient: 15-24 minutes - Inpatient Certification Based on my medical assessment, after consideration of the patient's comorbidities, presenting symptoms, or acuity I expect that the services needed warrant INPATIENT care.: Yes I certify that my determination is in accordance with my understanding of Medicare's requirements for reasonable and necessary INPATIENT services [42 CFR 412.3e].: Yes Medical Necessity: Need For IV Fluids, Need for IV Antibiotics
[2019-05-18] MEDS: DOCUSATE SODIUM 100 MG CAPSULE PO SCH ×2 (11:26→17:25)
[2019-05-18] MEDS: COLLAGENASE CLOSTRIDIUM HIST. OINT 30 GM TP SCH (11:26)
[2019-05-18] MEDS: PIPERACILLIN SODIUM/TAZOBACTAM 2.25 GM in NORMAL SALINE 50 ML IV SCH ×3 (11:26→20:21)
[2019-05-18] MEDS: OXYCODONE-ACETAMINOPHEN 5-325 MG TABLET PO PRN ×3 (11:26→20:21)
[2019-05-18] MEDS: VANCOMYCIN HCL 750 MG in DEXTROSE 5%-WATER 250 ML IV SCH (21:04)
[2019-05-19] MEDS: PIPERACILLIN SODIUM/TAZOBACTAM 2.25 GM in NORMAL SALINE 50 ML IV SCH ×4 (02:16→20:17)
[2019-05-19] MEDS: HYDRALAZINE HCL INJ/PF 20 MG/1 ML SDV IV PRN ×2 (04:16→15:59)
[2019-05-19] MEDS: PANTOPRAZOLE SODIUM 40 MG TABLET.DR PO SCH ×2 (05:05→17:15)
[2019-05-19] MEDS: HEPARIN SOD (PORCINE) 5,000 UNIT/ML 1 ML VIAL SUBCUT SCH ×3 (05:06→21:37)
[2019-05-19] MEDS: RINGERS SOLUTION,LACTATED 1,000 ML IV PRN ×3 (05:25→20:17)
[2019-05-19 05:54] LABS: HEMATOCRIT 30.2 % (37.9-51.0); MEAN CORPUSCULAR HEMOGLOBIN 29.2 pg (27.0-33.4); MEAN CORPUSCULAR HGB CONC 33.2 g/dL (32.0-36.0); MEAN CORPUSCULAR VOLUME 88 fl (80-97); PLATELET COUNT 175 10^3/uL (150-450); RED BLOOD COUNT 3.44 10^6/uL (4.35-5.55); RED CELL DISTRIBUTION WIDTH 16.2 % (11.5-14.0); WHITE BLOOD COUNT 6.5 10^3/uL (4.0-10.5)
[2019-05-19 06:15] LABS: ANION GAP 9 (5-19); BLOOD UREA NITROGEN 26 mg/dL (7-20); CALCIUM 8.5 mg/dL (8.4-10.2); CARBON DIOXIDE 20 mmol/L (22-30); CHLORIDE 108 mmol/L (98-107); CHOLESTEROL 123.06 mg/dL (0-200); GLUCOSE 76 mg/dL (75-110); POTASSIUM 4.7 mmol/L (3.6-5.0); TRIGLYCERIDES 67 mg/dL (<150)
[2019-05-19 06:25] LABS: DIRECT LDL 41 mg/dL (<100)
[2019-05-19] MEDS ORDERED: INFLUENZA QUAD (6MOS+) 2019-20 VAC 0.5 ML SYR IM ONE (08:00)
--- NOTE | 2019-05-19 09:49 | PDOC PROGRESS REPORT ---
Subjective Progress Note for:: 05/19/19 Subjective:: 05/18/2019-continued pain in the plantar surface of the right foot 05/19/2019-improved pain. Reason For Visit: CELLULITIS OF RIGHT FOOT, PLANTAR ULCERATION Physical Exam Vital Signs: Temp Pulse Resp BP Pulse Ox 98.1 F 97 18 119/53 L 98 05/19/19 08:50 05/19/19 08:50 05/19/19 08:50 05/19/19 08:50 05/19/19 08:50 Intake & Output 05/18/19 05/19/19 05/20/19 06:59 06:59 06:59 Intake Total 1221 4667 Output Total 75 976 Balance 1146 3691 Weight 158.6 kg 70.7 kg General appearance: PRESENT: no acute distress, well-developed, well-nourished Neck exam: ABSENT: carotid bruit, JVD, lymphadenopathy, thyromegaly Respiratory exam: PRESENT: clear to auscultation simona. ABSENT: rales, rhonchi, wheezes Cardiovascular exam: PRESENT: RRR. ABSENT: diastolic murmur, rubs, systolic murmur Pulses: PRESENT: +1 pedal pulses bilateral Vascular exam: PRESENT: normal capillary refill GI/Abdominal exam: PRESENT: normal bowel sounds, soft. ABSENT: distended, guarding, mass, organolmegaly, rebound, tenderness Extremities exam: PRESENT: other - Multiple toes missing on right foot. Plantar surface wound dime sized just proximal to great toe Neurological exam: PRESENT: alert, awake, oriented to person, oriented to place, oriented to time, oriented to situation, CN II-XII grossly intact. ABSENT: motor sensory deficit Psychiatric exam: PRESENT: appropriate affect, normal mood. ABSENT: homicidal ideation, suicidal ideation Skin exam: PRESENT: dry, intact, warm. ABSENT: cyanosis, rash Results Laboratory Results: 05/19/19 04:57 05/19/19 04:57 05/19/19 05/19/19 04:57 04:57 WBC 6.5 RBC 3.44 L Hgb 10.0 L Hct 30.2 L MCV 88 MCH 29.2 MCHC 33.2 RDW 16.2 H Plt Count 175 Sodium 136.8 L Potassium 4.7 Chloride 108 H Carbon Dioxide 20 L Anion Gap 9 BUN 26 H Creatinine 2.46 H Est GFR ( Amer) 32 L Glucose 76 Calcium 8.5 Magnesium 1.6 Triglycerides 67 Cholesterol 123.06 LDL Cholesterol Direct 41 VLDL Cholesterol 13.0 HDL Cholesterol 57 Impressions: Foot X-Ray 05/17/19 20:25 IMPRESSION: 1. Cutaneous wound plantar to the 1st MTP joint, with associated soft tissue edema. 2. No radiographic evidence for osteomyelitis Assessment and Plan - Plan Summary Summary: 05/18/2019- Plantar ulcer of right foot-at this time we will continue IV antibiotic therapy await cultures. Patient will receive Percocet for pain. Surgical consultation was obtained with no surgical findings at this time. Continue Santyl ointment dressing changes. Diabetes mellitus type 2 in nonobese-patient was continue on usual diabetic diet and diabetic medications. A1c is pending. Continue Accu-Cheks before meals and at bedtime. Peripheral vascular disease-continue to follow. Stable at this time Hypertension-continue patient on home antihypertensives. Acute kidney injury superposed on chronic kidney disease. Patient was hydrated with IV fluids. This seems to be more chronic in nature than acute. We will continue to follow daily BMPs 05/19/2019- Plantar ulcer of right foot-continue antibiotics continue PRN pain medications. Continue Santyl ointment dressing changes. Anticipate discharge tomorrow. Diabetes mellitus type 2 nonobese-'s stable. Continue Accu-Cheks before meals and at bedtime Hypertension-stable Peripheral vascular disease-stable acute kidney injury superposed on chronic k idney disease this is to be chronic in nature. Patient Remains with a creatinine of 2.5. I will DC IV hydration at this time. - Time Time Spent with patient: 15-24 minutes - Inpatient Certification Based on my medical assessment, after consideration of the patient's comorbidities, presenting symptoms, or acuity I expect that the services needed warrant INPATIENT care.: Yes I certify that my determination is in accordance with my understanding of Medicare's requirements for reasonable and necessary INPATIENT services [42 CFR 412.3e].: Yes Medical Necessity: Need for IV Antibiotics
[2019-05-19] MEDS: OXYCODONE-ACETAMINOPHEN 5-325 MG TABLET PO PRN ×4 (10:13→22:51)
[2019-05-19] MEDS: DOCUSATE SODIUM 100 MG CAPSULE PO SCH ×2 (10:14→17:16)
[2019-05-19] MEDS: COLLAGENASE CLOSTRIDIUM HIST. OINT 30 GM TP SCH (10:18)
[2019-05-19] MEDS: VANCOMYCIN HCL 750 MG in DEXTROSE 5%-WATER 250 ML IV SCH ×2 (10:57→22:42)
[2019-05-20] MEDS: PIPERACILLIN SODIUM/TAZOBACTAM 2.25 GM in NORMAL SALINE 50 ML IV SCH ×4 (02:53→21:29)
[2019-05-20] MEDS: OXYCODONE-ACETAMINOPHEN 5-325 MG TABLET PO PRN ×2 (04:10→19:27)
[2019-05-20] MEDS: RINGERS SOLUTION,LACTATED 1,000 ML IV PRN (05:06)
[2019-05-20] MEDS: PANTOPRAZOLE SODIUM 40 MG TABLET.DR PO SCH ×2 (05:07→17:47)
[2019-05-20] MEDS: HEPARIN SOD (PORCINE) 5,000 UNIT/ML 1 ML VIAL SUBCUT SCH ×3 (05:07→21:30)
[2019-05-20 05:39] LABS: HEMATOCRIT 28.2 % (37.9-51.0); HEMOGLOBIN 9.3 g/dL (13.5-17.0); MEAN CORPUSCULAR HEMOGLOBIN 29.2 pg (27.0-33.4); MEAN CORPUSCULAR HGB CONC 33.2 g/dL (32.0-36.0); MEAN CORPUSCULAR VOLUME 88 fl (80-97); PLATELET COUNT 171 10^3/uL (150-450); RED CELL DISTRIBUTION WIDTH 16.1 % (11.5-14.0); WHITE BLOOD COUNT 5.9 10^3/uL (4.0-10.5)
[2019-05-20 06:01] LABS: BLOOD UREA NITROGEN 21 mg/dL (7-20); CALCIUM 8.3 mg/dL (8.4-10.2); CHLORIDE 106 mmol/L (98-107); GLUCOSE 94 mg/dL (75-110); POTASSIUM 4.5 mmol/L (3.6-5.0)
[2019-05-20 06:13] LABS: ANION GAP 7 (5-19); CARBON DIOXIDE 22 mmol/L (22-30)
[2019-05-20] MEDS ORDERED: PHARMACY COMMUNICATION ORDER MC ONE (09:00)
--- NOTE | 2019-05-20 10:01 | PDOC PROGRESS REPORT ---
Subjective Progress Note for:: 05/20/19 Subjective:: 05/18/2019-continued pain in the plantar surface of the right foot 05/19/2019-improved pain. 05/20/2019-continue pain although improved. Patient continues work with physical therapy Reason For Visit: CELLULITIS OF RIGHT FOOT, PLANTAR ULCERATION Physical Exam Vital Signs: Temp Pulse Resp BP Pulse Ox 98.4 F 80 16 152/72 H 96 05/20/19 07:22 05/20/19 07:22 05/20/19 07:22 05/20/19 07:22 05/20/19 07:22 Intake & Output 05/19/19 05/20/19 05/21/19 06:59 06:59 06:59 Intake Total 4667 5221 Output Total 976 1610 Balance 3691 3611 Weight 70.7 kg 76.2 kg General appearance: PRESENT: no acute distress, well-developed, well-nourished Neck exam: ABSENT: carotid bruit, JVD, lymphadenopathy, thyromegaly Respiratory exam: PRESENT: clear to auscultation simona. ABSENT: rales, rhonchi, wheezes Cardiovascular exam: PRESENT: RRR. ABSENT: diastolic murmur, rubs, systolic murmur Pulses: PRESENT: +1 pedal pulses bilateral Vascular exam: PRESENT: normal capillary refill GI/Abdominal exam: PRESENT: normal bowel sounds, soft. ABSENT: distended, guarding, mass, organolmegaly, rebound, tenderness Extremities exam: PRESENT: other - Decreased circulation throughout bilateral lower extremity's. Missing toes on the right foot. Time sized diabetic ulcer on plantar surface of foot just proximal to great toe Neurological exam: PRESENT: alert, awake, oriented to person, oriented to place, oriented to time, oriented to situation, CN II-XII grossly intact. ABSENT: motor sensory deficit Psychiatric exam: PRESENT: appropriate affect, normal mood. ABSENT: homicidal ideation, suicidal ideation Skin exam: PRESENT: dry, intact, warm. ABSENT: cyanosis, rash Results Laboratory Results: 05/20/19 04:38 05/20/19 04:38 05/20/19 05/20/19 04:38 04:38 WBC 5.9 RBC 3.20 L Hgb 9.3 L Hct 28.2 L MCV 88 MCH 29.2 MCHC 33.2 RDW 16.1 H Plt Count 171 Sodium 135.1 L Potassium 4.5 Chloride 106 Carbon Dioxide 22 Anion Gap 7 BUN 21 H Creatinine 2.30 H Est GFR ( Amer) 35 L Glucose 94 Calcium 8.3 L Magnesium 1.3 L Impressions: Foot X-Ray 05/17/19 20:25 IMPRESSION: 1. Cutaneous wound plantar to the 1st MTP joint, with associated soft tissue edema. 2. No radiographic evidence for osteomyelitis Assessment and Plan - Plan Summary Summary: 05/18/2019- Plantar ulcer of right foot-at this time we will continue IV antibiotic therapy await cultures. Patient will receive Percocet for pain. Surgical consultation was obtained with no surgical findings at this time. Continue Santyl ointment dressing changes. Diabetes mellitus type 2 in nonobese-patient was continue on usual diabetic diet and diabetic medications. A1c is pending. Continue Accu-Cheks before meals and at bedtime. Peripheral vascular disease-continue to follow. Stable at this time Hypertension-continue patient on home antihypertensives. Acute kidney injury superposed on chronic kidney disease. Patient was hydrated with IV fluids. This seems to be more chronic in nature than acute. We will continue to follow daily BMPs 05/19/2019- Plantar ulcer of right foot-continue antibiotics continue PRN pain medications. Continue Santyl ointment dressing changes. Anticipate discharge tomorrow. Diabetes mellitus type 2 nonobese-'s stable. Continue Accu-Cheks before meals and at bedtime Hypertension-stable Peripheral vascular disease-stable acute kidney injury superposed on chronic kidney disease this is to be chronic in nature. Patient Remains with a creatinine of 2.5. I will DC IV hydration at this time. 05/20/2019- Plantar ulcer of the right foot-continue antibiotics. PRN pain medications. Patient on steady at this time to be discharged secondary to immobility and he is homeless. Diabetes mellitus type 2 nonobese-stable Hypertension-stable Peripheral vascular disease stable Acute kidney injury superimposed on chronic kidney disease. Chronic stable Hypomagnesemia-2 g IV magnesium at this time repeat magnesium level in the a.m. - Inpatient Certification Based on my medical assessment, after consideration of the patient's comorbidities, presenting symptoms, or acuity I expect that the services needed warrant INPATIENT care.: Yes I certify that my determination is in accordance with my understanding of Medicare's requirements for reasonable and necessary INPATIENT services [42 CFR 412.3e].: Yes Medical Necessity: Other - Physical therapy, IV magnesium
[2019-05-20] MEDS: DOCUSATE SODIUM 100 MG CAPSULE PO SCH ×2 (10:10→17:47)
[2019-05-20] MEDS: MAGNESIUM SULFATE/D5W 1 GM/100 ML RTUPB IV SCH ×2 (10:10→12:51)
[2019-05-20] MEDS: COLLAGENASE CLOSTRIDIUM HIST. OINT 30 GM TP SCH (10:10)
[2019-05-20 11:43] LABS: VANCOMYCIN,TROUGH 21.8 ug/mL (5.0-20.0)
[2019-05-20] MEDS ORDERED: VANCOMYCIN HCL 1,000 MG in DEXTROSE 5%-WATER 250 ML IV SCH (18:00)
[2019-05-20] MEDS: HYDRALAZINE HCL INJ/PF 20 MG/1 ML SDV IV PRN (19:27)
[2019-05-21] MEDS: PIPERACILLIN SODIUM/TAZOBACTAM 2.25 GM in NORMAL SALINE 50 ML IV SCH ×4 (03:47→21:34)
[2019-05-21 05:49] LABS: HEMATOCRIT 26.4 % (37.9-51.0); HEMOGLOBIN 8.9 g/dL (13.5-17.0); MEAN CORPUSCULAR HEMOGLOBIN 29.4 pg (27.0-33.4); MEAN CORPUSCULAR HGB CONC 33.9 g/dL (32.0-36.0); MEAN CORPUSCULAR VOLUME 87 fl (80-97); PLATELET COUNT 177 10^3/uL (150-450); RED BLOOD COUNT 3.04 10^6/uL (4.35-5.55); RED CELL DISTRIBUTION WIDTH 15.9 % (11.5-14.0); WHITE BLOOD COUNT 5.7 10^3/uL (4.0-10.5)
[2019-05-21] MEDS: HEPARIN SOD (PORCINE) 5,000 UNIT/ML 1 ML VIAL SUBCUT SCH ×3 (06:48→21:13)
[2019-05-21] MEDS: PANTOPRAZOLE SODIUM 40 MG TABLET.DR PO SCH ×2 (06:49→17:04)
[2019-05-21] MEDS: VANCOMYCIN HCL 750 MG in DEXTROSE 5%-WATER 250 ML IV SCH (06:52)
[2019-05-21] MEDS: HYDRALAZINE HCL INJ/PF 20 MG/1 ML SDV IV PRN (08:26)
[2019-05-21] MEDS: OXYCODONE-ACETAMINOPHEN 5-325 MG TABLET PO PRN (08:27)
--- NOTE | 2019-05-21 10:27 | PDOC PROGRESS REPORT ---
Subjective Progress Note for:: 05/21/19 Subjective:: 05/18/2019-continued pain in the plantar surface of the right foot 05/19/2019-improved pain. 05/20/2019-continue pain although improved. Patient continues work with physical therapy 05/21/2019-no complaints this a.m. Reason For Visit: CELLULITIS OF RIGHT FOOT, PLANTAR ULCERATION Physical Exam Vital Signs: Temp Pulse Resp BP Pulse Ox 98.1 F 76 16 183/80 H 94 05/21/19 07:39 05/21/19 07:39 05/21/19 07:39 05/21/19 07:39 05/21/19 07:39 Intake & Output 05/20/19 05/21/19 05/22/19 06:59 06:59 06:59 Intake Total 5221 3008 Output Total 1610 1425 Balance 3611 1583 Weight 76.2 kg 76.6 kg General appearance: PRESENT: no acute distress, well-developed, well-nourished Neck exam: PRESENT: carotid bruit Respiratory exam: PRESENT: clear to auscultation simona. ABSENT: rales, rhonchi, wheezes Cardiovascular exam: PRESENT: RRR. ABSENT: diastolic murmur, rubs, systolic murmur Pulses: PRESENT: +1 pedal pulses bilateral Vascular exam: PRESENT: normal capillary refill GI/Abdominal exam: PRESENT: normal bowel sounds, soft. ABSENT: distended, guarding, mass, organolmegaly, rebound, tenderness Extremities exam: PRESENT: other - Bilateral feet with multiple missing toes. Patient does have a right plantar surface ulcer just proximal to his great toe Neurological exam: PRESENT: alert, awake, oriented to person, oriented to place, oriented to time, oriented to situation, CN II-XII grossly intact. ABSENT: motor sensory deficit Psychiatric exam: PRESENT: appropriate affect, normal mood. ABSENT: homicidal ideation, suicidal ideation Skin exam: PRESENT: dry, intact, warm. ABSENT: cyanosis, rash Results Laboratory Results: 05/21/19 05:08 05/20/19 10:05 05/20/19 05/21/19 05/21/19 10:05 05:08 05:08 WBC 5.7 RBC 3.04 L Hgb 8.9 L Hct 26.4 L MCV 87 MCH 29.4 MCHC 33.9 RDW 15.9 H Plt Count 177 Creatinine 2.20 H Est GFR ( Amer) 37 L Magnesium 1.7 Impressions: Foot X-Ray 05/17/19 20:25 IMPRESSION: 1. Cutaneous wound plantar to the 1st MTP joint, with associated soft tissue edema. 2. No radiographic evidence for osteomyelitis Assessment and Plan - Plan Summary Summary: 05/18/2019- Plantar ulcer of right foot-at this time we will continue IV antibiotic therapy await cultures. Patient will receive Percocet for pain. Surgical consultation was obtained with no surgical findings at this time. Continue Santyl ointment dressing changes. Diabetes mellitus type 2 in nonobese-patient was continue on usual diabetic diet and diabetic medications. A1c is pending. Continue Accu-Cheks before meals and at bedtime. Peripheral vascular disease-continue to follow. Stable at this time Hypertension-continue patient on home antihypertensives. Acute kidney injury superposed on chronic kidney disease. Patient was hydrated with IV fluids. This seems to be more chronic in nature than acute. We will continue to follow daily BMPs 05/19/2019- Plantar ulcer of right foot-continue antibiotics continue PRN pain medications. Continue Santyl ointment dressing changes. Anticipate discharge tomorrow. Diabetes mellitus type 2 nonobese-'s stable. Continue Accu-Cheks before meals and at bedtime Hypertension-stable Peripheral vascular disease-stable acute kidney injury superposed on chronic kidney disease this is to be chronic in nature. Patient Remains with a creatinine of 2.5. I will DC IV hydration at this time. 05/20/2019- Plantar ulcer of the right foot-continue antibiotics. PRN pain medications. Patient on steady at this time to be discharged secondary to immobility and he is homeless. Diabetes mellitus type 2 nonobese-stable Hypertension-stable Peripheral vascular disease stable Acute kidney injury superimposed on chronic kidney disease. Chronic stable Hypomagnesemia-2 g IV magnesium at this time repeat magnesium level in the a.m. 05/21/2019- Plantar ulcer of the right foot-continue antibiotics. PRN pain meds. Patient remains unsteady and has to use walker for mobility. I have discussed with case management and we will proceed to place him in short-term rehab. Diabetes most type II nonobese-stable Hypertension-patient began PRN hydralazine. At this time will place patient Norvasc 10 mg p.o. daily we will continue to follow Peripheral vascular disease-stable Acute on chronic superimposed kidney disease stable Hypomagnesemia-stable mag level 1.7 this morning. - Time Time Spent with patient: 15-24 minutes - Inpatient Certification Medical Necessity: Need for Pain Control, Need for IV Antibiotics
[2019-05-21] MEDS: AMLODIPINE BESYLATE 10 MG TABLET PO SCH (12:32)
[2019-05-21] MEDS: DOCUSATE SODIUM 100 MG CAPSULE PO SCH ×2 (12:33→17:04)
[2019-05-21] MEDS: COLLAGENASE CLOSTRIDIUM HIST. OINT 30 GM TP SCH (12:33)
[2019-05-22] MEDS: PIPERACILLIN SODIUM/TAZOBACTAM 2.25 GM in NORMAL SALINE 50 ML IV SCH ×4 (03:19→21:55)
[2019-05-22] MEDS: HEPARIN SOD (PORCINE) 5,000 UNIT/ML 1 ML VIAL SUBCUT SCH ×3 (05:30→21:38)
[2019-05-22] MEDS: PANTOPRAZOLE SODIUM 40 MG TABLET.DR PO SCH ×2 (05:30→17:18)
[2019-05-22 06:19] LABS: HEMATOCRIT 28.1 % (37.9-51.0); HEMOGLOBIN 9.5 g/dL (13.5-17.0); MEAN CORPUSCULAR HEMOGLOBIN 29.3 pg (27.0-33.4); MEAN CORPUSCULAR HGB CONC 33.7 g/dL (32.0-36.0); MEAN CORPUSCULAR VOLUME 87 fl (80-97); PLATELET COUNT 242 10^3/uL (150-450); RED BLOOD COUNT 3.22 10^6/uL (4.35-5.55); RED CELL DISTRIBUTION WIDTH 16.1 % (11.5-14.0); WHITE BLOOD COUNT 5.2 10^3/uL (4.0-10.5)
[2019-05-22 06:38] LABS: ANION GAP 10 (5-19); BLOOD UREA NITROGEN 20 mg/dL (7-20); CALCIUM 8.5 mg/dL (8.4-10.2); CARBON DIOXIDE 22 mmol/L (22-30); CHLORIDE 108 mmol/L (98-107); GLUCOSE 102 mg/dL (75-110); POTASSIUM 4.2 mmol/L (3.6-5.0)
--- NOTE | 2019-05-22 08:56 | PDOC PROGRESS REPORT ---
Subjective Progress Note for:: 05/22/19 Subjective:: 05/18/2019-continued pain in the plantar surface of the right foot 05/19/2019-improved pain. 05/20/2019-continue pain although improved. Patient continues work with physical therapy 05/21/2019-no complaints this a.m. 05/22/2019-no complaints this a.m.-no events overnight Reason For Visit: CELLULITIS OF RIGHT FOOT, PLANTAR ULCERATION Physical Exam Vital Signs: Temp Pulse Resp BP Pulse Ox 98.2 F 82 20 185/89 H 97 05/22/19 07:36 05/22/19 07:36 05/22/19 07:36 05/22/19 07:36 05/22/19 07:36 Intake & Output 05/21/19 05/22/19 05/23/19 06:59 06:59 06:59 Intake Total 3008 1160 Output Total 1425 1900 Balance 1583 -740 Weight 76.6 kg 74.7 kg General appearance: PRESENT: no acute distress, well-developed, well-nourished Neck exam: ABSENT: carotid bruit, JVD, lymphadenopathy, thyromegaly Respiratory exam: PRESENT: clear to auscultation simona. ABSENT: rales, rhonchi, wheezes Cardiovascular exam: PRESENT: RRR. ABSENT: diastolic murmur, rubs, systolic murmur Pulses: PRESENT: +1 pedal pulses bilateral Vascular exam: PRESENT: normal capillary refill GI/Abdominal exam: PRESENT: normal bowel sounds, soft. ABSENT: distended, guarding, mass, organolmegaly, rebound, tenderness Extremities exam: PRESENT: full ROM, other - Multiple toes missing on bilateral feet secondary to diabetes patient also has a dime sized diabetic ulcer on the plantar surface of his right foot just proximal to the great toe. ABSENT: calf tenderness, clubbing, pedal edema Neurological exam: PRESENT: alert, awake, oriented to person, oriented to place, oriented to time, oriented to situation, CN II-XII grossly intact. ABSENT: motor sensory deficit Psychiatric exam: PRESENT: appropriate affect, normal mood. ABSENT: homicidal ideation, suicidal ideation Skin exam: PRESENT: dry, intact, warm, other - Diabetic ulcer plantar surface right foot just proximal to great toe. ABSENT: cyanosis, rash Results Laboratory Results: 05/22/19 05:21 05/22/19 05:21 05/22/19 05/22/19 05:21 05:21 WBC 5.2 RBC 3.22 L Hgb 9.5 L Hct 28.1 L MCV 87 MCH 29.3 MCHC 33.7 RDW 16.1 H Plt Count 242 Sodium 139.7 Potassium 4.2 Chloride 108 H Carbon Dioxide 22 Anion Gap 10 BUN 20 Creatinine 2.01 H Est GFR ( Amer) 41 L Glucose 102 Calcium 8.5 Impressions: Foot X-Ray 05/17/19 20:25 IMPRESSION: 1. Cutaneous wound plantar to the 1st MTP joint, with associated soft tissue edema. 2. No radiographic evidence for osteomyelitis Assessment and Plan - Plan Summary Summary: 05/18/2019- Plantar ulcer of right foot-at this time we will continue IV antibiotic therapy await cultures. Patient will receive Percocet for pain. Surgical consultation was obtained with no surgical findings at this time. Continue Santyl ointment dressing changes. Diabetes mellitus type 2 in nonobese-patient was continue on usual diabetic diet and diabetic medications. A1c is pending. Continue Accu-Cheks before meals and at bedtime. Peripheral vascular disease-continue to follow. Stable at this time Hypertension-continue patient on home antihypertensives. Acute kidney injury superposed on chronic kidney disease. Patient was hydrated with IV fluids. This seems to be more chronic in nature than acute. We will continue to follow daily BMPs 05/19/2019- Plantar ulcer of right foot-continue antibiotics continue PRN pain medications. Continue Santyl ointment dressing changes. Anticipate discharge tomorrow. Diabetes mellitus type 2 nonobese-'s stable. Continue Accu-Cheks before meals and at bedtime Hypertension-stable Peripheral vascular disease-stable acute kidney injury superposed on chronic kidney disease this is to be chronic in nature. Patient Remains with a creatinine of 2.5. I will DC IV hydration at this time. 05/20/2019- Plantar ulcer of the right foot-continue antibiotics. PRN pain medications. Patient on steady at this time to be discharged secondary to immobility and he is homeless. Diabetes mellitus type 2 nonobese-stable Hypertension-stable Peripheral vascular disease stable Acute kidney injury superimposed on chronic kidney disease. Chronic stable Hypomagnesemia-2 g IV magnesium at this time repeat magnesium level in the a.m. 05/21/2019- Plantar ulcer of the right foot-continue antibiotics. PRN pain meds. Patient remains unsteady and has to use walker for mobility. I have discussed with case management and we will proceed to place him in short-term rehab. Diabetes most type II nonobese-stable Hypertension-patient began PRN hydralazine. At this time will place patient Norvasc 10 mg p.o. daily we will continue to follow Peripheral vascular disease-stable Acute on chronic superimposed kidney disease stable Hypomagnesemia-stable mag level 1.7 this morning. 05/22/2019- Plantar ulcer on right foot-continue antibiotics. PRN pain medications. Patient continues with walker for mobility. Possible placement short-term rehab tomorrow. Diabetes mellitus type 2-stable Hypertension-I have added hydralazine 25 mg p.o. 3 times daily we will continue to follow adjust medications as needed. Peripheral vascular disease-stable Acute on chronic superimposed kidney disease-improved this a.m. Stable Hypomagnesemia-stable - Time Time Spent with patient: 15-24 minutes - Inpatient Certification Based on my medical assessment, after consideration of the patient's comorbidities, presenting symptoms, or acuity I expect that the services needed warrant INPATIENT care.: Yes I certify that my determination is in accordance with my understanding of Medicare's requirements for reasonable and necessary INPATIENT services [42 CFR 412.3e].: Yes Medical Necessity: Need for IV Antibiotics - Rehab
[2019-05-22] MEDS: DOCUSATE SODIUM 100 MG CAPSULE PO SCH ×2 (09:02→17:18)
[2019-05-22] MEDS: AMLODIPINE BESYLATE 10 MG TABLET PO SCH (09:02)
[2019-05-22] MEDS: COLLAGENASE CLOSTRIDIUM HIST. OINT 30 GM TP SCH (09:03)
[2019-05-22] MEDS: OXYCODONE-ACETAMINOPHEN 5-325 MG TABLET PO PRN (09:03)
[2019-05-22] MEDS: HYDRALAZINE HCL 25 MG TABLET PO SCH ×3 (11:21→21:38)
[2019-05-23] MEDS: PIPERACILLIN SODIUM/TAZOBACTAM 2.25 GM in NORMAL SALINE 50 ML IV SCH ×4 (02:05→20:46)
[2019-05-23] MEDS: PANTOPRAZOLE SODIUM 40 MG TABLET.DR PO SCH ×2 (06:06→17:13)
[2019-05-23] MEDS: HYDRALAZINE HCL 25 MG TABLET PO SCH ×2 (06:06→14:41)
[2019-05-23] MEDS: HEPARIN SOD (PORCINE) 5,000 UNIT/ML 1 ML VIAL SUBCUT SCH ×3 (06:07→21:35)
[2019-05-23] MEDS: COLLAGENASE CLOSTRIDIUM HIST. OINT 30 GM TP SCH (09:29)
[2019-05-23] MEDS: DOCUSATE SODIUM 100 MG CAPSULE PO SCH ×2 (09:29→17:13)
[2019-05-23] MEDS: AMLODIPINE BESYLATE 10 MG TABLET PO SCH (09:29)
[2019-05-23] MEDS: OXYCODONE-ACETAMINOPHEN 5-325 MG TABLET PO PRN (09:33)
--- NOTE | 2019-05-23 16:58 | PDOC PROGRESS REPORT ---
Subjective Progress Note for:: 05/23/19 Subjective:: 05/18/2019-continued pain in the plantar surface of the right foot 05/19/2019-improved pain. 05/20/2019-continue pain although improved. Patient continues work with physical therapy 05/21/2019-no complaints this a.m. 05/22/2019-no complaints this a.m.-no events overnight 2018-no complaints-no complaints overnight Reason For Visit: CELLULITIS OF RIGHT FOOT, PLANTAR ULCERATION Physical Exam Vital Signs: Temp Pulse Resp BP Pulse Ox 97.6 F 78 20 155/79 H 99 05/23/19 12:27 05/23/19 14:00 05/23/19 12:27 05/23/19 12:27 05/23/19 12:27 Intake & Output 05/22/19 05/23/19 05/24/19 06:59 06:59 06:59 Intake Total 1160 1792 460 Output Total 1900 1575 Balance -740 217 460 Weight 74.7 kg 73.1 kg General appearance: PRESENT: no acute distress, well-developed, well-nourished Neck exam: ABSENT: carotid bruit, JVD, lymphadenopathy, thyromegaly Respiratory exam: PRESENT: clear to auscultation simona. ABSENT: rales, rhonchi, wheezes Cardiovascular exam: PRESENT: RRR. ABSENT: diastolic murmur, rubs, systolic murmur Pulses: PRESENT: +1 pedal pulses bilateral GI/Abdominal exam: PRESENT: normal bowel sounds, soft. ABSENT: distended, guarding, mass, organolmegaly, rebound, tenderness Rectal exam: PRESENT: deferred Extremities exam: PRESENT: full ROM. ABSENT: calf tenderness, clubbing, pedal edema Musculoskeletal exam: PRESENT: other - Missing multiple toes on bilateral lower feet Neurological exam: PRESENT: alert, awake, oriented to person, oriented to place, oriented to time, oriented to situation, CN II-XII grossly intact. ABSENT: motor sensory deficit Psychiatric exam: PRESENT: appropriate affect, normal mood. ABSENT: homicidal ideation, suicidal ideation Skin exam: PRESENT: dry, intact, warm, other - Diabetic foot ulcer plantar surface of the right foot just proximal to the great toe. ABSENT: cyanosis, ra sh Results Laboratory Results: 05/22/19 05:21 05/22/19 05:21 Impressions: Foot X-Ray 05/17/19 20:25 IMPRESSION: 1. Cutaneous wound plantar to the 1st MTP joint, with associated soft tissue edema. 2. No radiographic evidence for osteomyelitis Assessment and Plan - Plan Summary Summary: 05/18/2019- Plantar ulcer of right foot-at this time we will continue IV antibiotic therapy await cultures. Patient will receive Percocet for pain. Surgical consultation was obtained with no surgical findings at this time. Continue Santyl ointment dressing changes. Diabetes mellitus type 2 in nonobese-patient was continue on usual diabetic diet and diabetic medications. A1c is pending. Continue Accu-Cheks before meals and at bedtime. Peripheral vascular disease-continue to follow. Stable at this time Hypertension-continue patient on home antihypertensives. Acute kidney injury superposed on chronic kidney disease. Patient was hydrated with IV fluids. This seems to be more chronic in nature than acute. We will continue to follow daily BMPs 05/19/2019- Plantar ulcer of right foot-continue antibiotics continue PRN pain medications. Continue Santyl ointment dressing changes. Anticipate discharge tomorrow. Diabetes mellitus type 2 nonobese-'s stable. Continue Accu-Cheks before meals and at bedtime Hypertension-stable Peripheral vascular disease-stable acute kidney injury superposed on chronic kidney disease this is to be chronic in nature. Patient Remains with a creatinine of 2.5. I will DC IV hydration at this time. 05/20/2019- Plantar ulcer of the right foot-continue antibiotics. PRN pain medications. Patient on steady at this time to be discharged secondary to immobility and he is homeless. Diabetes mellitus type 2 nonobese-stable Hypertension-stable Peripheral vascular disease stable Acute kidney injury superimposed on chronic kidney disease. Chronic stable Hypomagnesemia-2 g IV magnesium at this time repeat magnesium level in the a.m. 05/21/2019- Plantar ulcer of the right foot-continue antibiotics. PRN pain meds. Patient remains unsteady and has to use walker for mobility. I have discussed with case management and we will proceed to place him in short-term rehab. Diabetes most type II nonobese-stable Hypertension-patient began PRN hydralazine. At this time will place patient Norvasc 10 mg p.o. daily we will continue to follow Peripheral vascular disease-stable Acute on chronic superimposed kidney disease stable Hypomagnesemia-stable mag level 1.7 this morning. 05/22/2019- Plantar ulcer on right foot-continue antibiotics. PRN pain medications. Patient continues with walker for mobility. Possible placement short-term rehab tomorrow. Diabetes mellitus type 2-stable Hypertension-I have added hydralazine 25 mg p.o. 3 times daily we will continue to follow adjust medications as needed. Peripheral vascular disease-stable Acute on chronic superimposed kidney disease-improved this a.m. Stable Hypomagnesemia-stable 05/23/2019-plantar ulcer on right foot-antibiotics continue pain management PRN. Mobility with walker. Awaiting placement. Diabetes most type II-stable Hypertension-increase hydralazine to 50 mill grams p.o. 3 times daily we will continue to follow and adjust medications as needed Peripheral vascular disease-stable Acute on chronic superimposed kidney disease stable Hypomagnesemia stable - Time Time Spent with patient: 15-24 minutes
[2019-05-23] MEDS: HYDRALAZINE HCL 50 MG TABLET PO SCH (21:35)
[2019-05-24] MEDS: PIPERACILLIN SODIUM/TAZOBACTAM 2.25 GM in NORMAL SALINE 50 ML IV SCH ×2 (02:42→09:25)
[2019-05-24] MEDS: HYDRALAZINE HCL 50 MG TABLET PO SCH ×2 (06:56→13:20)
[2019-05-24] MEDS: PANTOPRAZOLE SODIUM 40 MG TABLET.DR PO SCH (06:56)
[2019-05-24] MEDS: HEPARIN SOD (PORCINE) 5,000 UNIT/ML 1 ML VIAL SUBCUT SCH ×2 (06:56→13:18)
[2019-05-24 07:20] LABS: ANION GAP 9 (5-19); BLOOD UREA NITROGEN 29 mg/dL (7-20); CALCIUM 8.4 mg/dL (8.4-10.2); CARBON DIOXIDE 22 mmol/L (22-30); CHLORIDE 108 mmol/L (98-107); GLUCOSE 101 mg/dL (75-110); POTASSIUM 4.3 mmol/L (3.6-5.0)
[2019-05-24] MEDS: DOCUSATE SODIUM 100 MG CAPSULE PO SCH (09:20)
[2019-05-24] MEDS: AMLODIPINE BESYLATE 10 MG TABLET PO SCH (09:24)
[2019-05-24] MEDS: OXYCODONE-ACETAMINOPHEN 5-325 MG TABLET PO PRN ×2 (09:24→13:20)
--- NOTE | 2019-05-24 10:35 | PDOC TRANSFER SUMMARY ---
Impression - Admit/DC Date/PCP Admission Date/Primary Care Provider: 05/17/19 22:36 Discharge Date: 05/24/19 - Discharge Diagnosis (1) Acute kidney injury superimposed on chronic kidney disease Is this a current diagnosis for this admission?: Yes (2) Diabetes mellitus type 2 in nonobese Is this a current diagnosis for this admission?: Yes (3) Peripheral vascular disease Is this a current diagnosis for this admission?: Yes (4) Plantar ulcer of right foot Is this a current diagnosis for this admission?: Yes - Assessment Summary: 05/18/2019- Plantar ulcer of right foot-at this time we will continue IV antibiotic therapy await cultures. Patient will receive Percocet for pain. Surgical consultation was obtained with no surgical findings at this time. Continue Santyl ointment dressing changes. Diabetes mellitus type 2 in nonobese-patient was continue on usual diabetic diet and diabetic medications. A1c is pending. Continue Accu-Cheks before meals and at bedtime. Peripheral vascular disease-continue to follow. Stable at this time Hypertension-continue patient on home antihypertensives. Acute kidney injury superposed on chronic kidney disease. Patient was hydrated with IV fluids. This seems to be more chronic in nature than acute. We will continue to follow daily BMPs 05/19/2019- Plantar ulcer of right foot-continue antibiotics continue PRN pain medications. Continue Santyl ointment dressing changes. Anticipate discharge tomorrow. Diabetes mellitus type 2 nonobese-'s stable. Continue Accu-Cheks before meals and at bedtime Hypertension-stable Peripheral vascular disease-stable acute kidney injury superposed on chronic kidney disease this is to be chronic in nature. Patient Remains with a creatinine of 2.5. I will DC IV hydration at this time. 05/20/2019- Plantar ulcer of the right foot-continue antibiotics. PRN pain medications. Patient on steady at this time to be discharged secondary to immobility and he is homeless. Diabetes mellitus type 2 nonobese-stable Hypertension-stable Peripheral vascular disease stable Acute kidney injury superimposed on chronic kidney disease. Chronic stable Hypomagnesemia-2 g IV magnesium at this time repeat magnesium level in the a.m. 05/21/2019- Plantar ulcer of the right foot-continue antibiotics. PRN pain meds. Patient remains unsteady and has to use walker for mobility. I have discussed with case management and we will proceed to place him in short-term rehab. Diabetes most type II nonobese-stable Hypertension-patient began PRN hydralazine. At this time will place patient Norvasc 10 mg p.o. daily we will continue to follow Peripheral vascular disease-stable Acute on chronic superimposed kidney disease stable Hypomagnesemia-stable mag level 1.7 this morning. 05/22/2019- Plantar ulcer on right foot-continue antibiotics. PRN pain medications. Patient continues with walker for mobility. Possible placement short-term rehab tomorrow. Diabetes mellitus type 2-stable Hypertension-I have added hydralazine 25 mg p.o. 3 times daily we will continue to follow adjust medications as needed. Peripheral vascular disease-stable Acute on chronic superimposed kidney disease-improved this a.m. Stable Hypomagnesemia-stable 05/23/2019-plantar ulcer on right foot-antibiotics continue pain management PRN. Mobility with walker. Awaiting placement. Diabetes most type II-stable Hypertension-increase hydralazine to 50 mill grams p.o. 3 times daily we will continue to follow and adjust medications as needed Peripheral vascular disease-stable Acute on chronic superimposed kidney disease stable Hypomagnesemia stable - Additional Information Resuscitation Status: Full Code Discharge Diet: Cardiac, Diabetic Discharge Activity: Activity As Tolerated, Balance Activity w/Rest, Slowly Increase Activity Referrals: Wound Care [Provider Group] CHAVEZ MERA MD [ACTIVE STAFF] - Prescriptions: Hydralazine HCl [Apresoline 50 mg Tablet] 50 mg PO Q8 #90 tablet Nicotine [Nicoderm 21 mg/24 Hr Transderm Patch] 1 each TD DAILYP PRN #30 patch.td24 PRN Reason: Amlodipine Besylate [Norvasc 10 mg Tablet] 10 mg PO DAILY #30 tablet Oxycodone HCl/Acetaminophen [Percocet 5-325 mg Tablet] 1 tab PO Q4HP PRN #20 tablet PRN Reason: Pantoprazole Sodium [Protonix [address] Tablet] 40 mg PO QAM #30 tablet. Collagenase Clostridium Hist. [Santyl Ointment 30 gm] 1 applic TP DAILY #1 tube Ondansetron [Zofran Odt 4 mg Tablet] 4 mg PO Q4HP PRN #20 tab.rapdis PRN Reason: Home Medications: Chlordiazepoxide HCl [Librium 25 mg Capsule] 25 mg PO QIDP PRN 05/18/19 Metformin HCl [Glucophage 500 mg Tablet] 500 mg PO DAILY 05/18/19 Acetaminophen [Tylenol 325 mg Tablet] 650 mg PO Q4HP PRN tablet 05/24/19 Amlodipine Besylate [Norvasc 10 mg Tablet] 10 mg PO DAILY #30 tablet 05/24/19 Collagenase Clostridium Hist. [Santyl Ointment 30 gm] 1 applic TP DAILY #1 tube 05/24/19 Docusate Sodium [Colace 100 mg Capsule] 100 mg PO BID capsule 05/24/19 Hydralazine HCl [Apresoline 50 mg Tablet] 50 mg PO Q8 #90 tablet 05/24/19 Nicotine [Nicoderm 21 mg/24 Hr Transderm Patch] 1 each TD DAILYP PRN #30 patch.td24 05/24/19 Ondansetron [Zofran Odt 4 mg Tablet] 4 mg PO Q4HP PRN #20 tab.rapdis 05/24/19 Oxycodone HCl/Acetaminophen [Percocet 5-325 mg Tablet] 1 tab PO Q4HP PRN #20 tablet 05/24/19 Pantoprazole Sodium [Protonix [address] Tablet] 40 mg PO QAM #30 tablet. 05/24/19 History of Present Illiness History of Present Illness: Per H&P by Dr. Hodges: ANTHONY PAZ is a 63 year old male who presented to the emergency room with a 4-month history of a sore on his right foot. He admits that his right foot has an ulceration on the sole of the foot which is gradually become larger over the last 4 months. Over the last 3 to 4 days he has developed severe pain, swelling, redness and increased warmth of the right f oot making walking or any weightbearing extremely painful and was not relieved well by his Percocet 5/325 at home. He describes the pain as a continuous severe throbbing of the right foot without radiation. The pain becomes exquisitely sharp and severe with any weightbearing. He denies any additional accompanying or associated signs and symptoms. He denies prior similar episodes and has not identified any additional aggravating or ameliorating factors for his right foot ulceration. In the emergency room he was found to have an elevated erythrocyte sedimentation rate at 50 and an elevated CRP at 56 with a normal white blood count and x-rays that showed no evidence of osteomyelitis. He did have evidence of acute on chronic renal insufficiency and was started on intravenous vancomycin and Zosyn. He was subsequently admitted to the hospital for further evaluation treatment. Hospital Course Hospital Course: The patient was admitted to [facility] on continuous cardiac telemetry. Surgical consultation was obtained; no interventions recommended at this time. Patient was empirically placed on IV Zosyn for treatment of chronic foot wound with superimposed cellulitis. He has been afebrile since time of admission with normal WBCs. Clinical appearance of the foot is significantly improved. Patient's A1c was found to be 5.7%. His diabetes was managed with sliding scale insulin while admitted; at discharge, he is to resume his home dose metformin. Blood pressure was managed with p.o. hydralazine; increased to 50 mg 3 times daily with adequate response. The patient's chronic kidney disease appears to have reached a new baseline of 2.56. Recommend that he establish with a growth hacker within 2 to 4 weeks. At time of discharge, patient is in stable condition, clinically improved, with adequately controlled pain. He is discharged to [facility] for continued short-term rehab and wound care. He is advised to follow-up with his PCP within 1 week, the wound care clinic within 2 weeks, and to establish with a growth hacker within 2 to 4 weeks. He is instructed to take his medications as prescribed. Continue daily Santyl dressing changes. Return to the emergency department as needed for concerning symptoms. Physical Exam Vital Signs: Temp Pulse Resp BP Pulse Ox 97.8 F 90 15 157/77 H 98 05/24/19 07:59 05/24/19 07:59 05/24/19 07:59 05/24/19 07:59 05/24/19 07:59 Intake & Output 05/23/19 05/24/19 05/25/19 06:59 06:59 06:59 Intake Total 1792 800 Output Total 1575 700 Balance 217 100 Weight 73.1 kg 74.7 kg General appearance: PRESENT: no acute distress, cooperative, well-developed, well-nourished Head exam: PRESENT: atraumatic, normocephalic Eye exam: PRESENT: conjunctiva pink, EOMI, PERRLA. ABSENT: scleral icterus Ear exam: PRESENT: normal external ear exam Mouth exam: PRESENT: moist, tongue midline Neck exam: ABSENT: carotid bruit, JVD, lymphadenopathy, thyromegaly Respiratory exam: PRESENT: clear to auscultation simona, symmetrical, unlabored. ABSENT: rales, rhonchi, wheezes Cardiovascular exam: PRESENT: RRR, +S1, +S2. ABSENT: diastolic murmur, rubs, systolic murmur Pulses: PRESENT: normal dorsalis pedis pul Vascular exam: PRESENT: normal capillary refill GI/Abdominal exam: PRESENT: normal bowel sounds, soft. ABSENT: distended, guarding, mass, organolmegaly, rebound, tenderness Rectal exam: PRESENT: deferred Extremities exam: PRESENT: full ROM. ABSENT: calf tenderness, clubbing, pedal edema Neurological exam: PRESENT: alert, awake, oriented to person, oriented to place, oriented to time, oriented to situation, CN II-XII grossly intact. ABSENT: motor sensory deficit Psychiatric exam: PRESENT: appropriate affect, normal mood. ABSENT: homicidal ideation, suicidal ideation Skin exam: PRESENT: dry, intact, warm, other - There is a 1.5 cm round, shallow, ulcer w/ grannulation tissue to the right plantar surface of the forefoot in the area of the first metatarsal phalangeal joint. No surrounding erythema, edema, or drainage.. ABSENT: cyanosis, rash Results Laboratory Results: WBC 5.2 10^3/uL (4.0-10.5) 05/22/19 05:21 RBC 3.22 10^6/uL (4.35-5.55) L 05/22/19 05:21 Hgb 9.5 g/dL (13.5-17.0) L 05/22/19 05:21 Hct 28.1 % (37.9-51.0) L 05/22/19 05:21 MCV 87 fl (80-97) 05/22/19 05:21 MCH 29.3 pg (27.0-33.4) 05/22/19 05:21 MCHC 33.7 g/dL (32.0-36.0) 05/22/19 05:21 RDW 16.1 % (11.5-14.0) H 05/22/19 05:21 Plt Count 242 10^3/uL (150-450) 05/22/19 05:21 Lymph % (Auto) 19.4 % (13-45) 05/17/19 19:09 [place] % (Auto) 8.8 % (3-13) 05/17/19 19:09 Eos % (Auto) 0.5 % (0-6) 05/17/19 19:09 Baso % (Auto) 0.3 % (0-2) 05/17/19 19:09 Absolute Neuts (auto) 4.9 10^3/uL (1.7-8.2) 05/17/19 19:09 Absolute Lymphs (auto) 1.3 10^3/uL (0.5-4.7) 05/17/19 19:09 Absolute Monos (auto) 0.6 10^3/uL (0.1-1.4) 05/17/19 19:09 Absolute Eos (auto) 0.0 10^3/uL (0.0-0.6) 05/17/19 19:09 Absolute Basos (auto) 0.0 10^3/uL (0.0-0.2) 05/17/19 19:09 Seg Neutrophils % 71.0 % (42-78) 05/17/19 19:09 ESR 51 mm/hr (0-20) H 05/17/19 19:09 Sodium 139.3 mmol/L (137-145) 05/24/19 06:04 Potassium 4.3 mmol/L (3.6-5.0) 05/24/19 06:04 Chloride 108 mmol/L (98-107) H 05/24/19 06:04 Carbon Dioxide 22 mmol/L (22-30) 05/24/19 06:04 Anion Gap 9 (5-19) 05/24/19 06:04 BUN 29 mg/dL (7-20) H 05/24/19 06:04 Creatinine 2.56 mg/dL (0.52-1.25) H 05/24/19 06:04 Est GFR ( Amer) 31 (>60) L 05/24/19 06:04 Est GFR (MDRD) Non-Af 25 (>60) L 05/24/19 06:04 Glucose 101 mg/dL (75-110) 05/24/19 06:04 POC Glucose 125 mg/dL (70-110) H 05/23/19 21:16 Hemoglobin A1c % 5.7 % (4.7-6.0) 05/19/19 04:57 Calcium 8.4 mg/dL (8.4-10.2) 05/24/19 06:04 Magnesium 1.7 mg/dL (1.6-2.3) 05/21/19 05:08 Total Bilirubin 0.4 mg/dL (0.2-1.3) 05/17/19 19:09 Direct Bilirubin 0.2 mg/dL (0.0-0.4) 05/17/19 19:09 Neonat Total Bilirubin Not Reportable 05/17/19 19:09 Neonat Direct Bilirubin Not Reportable 05/17/19 19:09 Neonat Indirect Bili Not Reportable 05/17/19 19:09 AST 79 U/L (17-59) H 05/17/19 19:09 ALT 34 U/L (<50) 05/17/19 19:09 Alkaline Phosphatase 108 U/L (38-126) 05/17/19 19:09 C-Reactive Protein 56.4 mg/L (<10.0) H 05/17/19 19:09 Total Protein 8.0 g/dL (6.3-8.2) 05/17/19 19:09 Albumin 3.7 g/dL (3.5-5.0) 05/17/19 19:09 Triglycerides 67 mg/dL (<150) 05/19/19 04:57 Cholesterol 123.06 mg/dL (0-200) 05/19/19 04:57 LDL Cholesterol Direct 41 mg/dL (<100) 05/19/19 04:57 VLDL Cholesterol 13.0 mg/dL (10-31) 05/19/19 04:57 HDL Cholesterol 57 mg/dL (>40) 05/19/19 04:57 TSH 0.85 uIU/mL (0.47-4.68) 05/17/19 19:09 Free T4 1.62 ng/dL (0.78-2.19) 05/17/19 19:09 Free T3 pg/mL 4.98 pg/mL (2.77-5.27) 05/17/19 19:09 Time Trough Drawn 1005 05/20/19 10:05 Vancomycin Trough 21.8 ug/mL (5.0-20.0) H 05/20/19 10:05 Impressions: Foot X-Ray 05/17/19 20:25 IMPRESSION: 1. Cutaneous wound plantar to the 1st MTP joint, with associated soft tissue edema. 2. No radiographic evidence for osteomyelitis Plan Plan of Treatment: Follow-up with PCP within 1 week. Follow-up with wound care center within 2 weeks. Establish with growth hacker within 2 to 4 weeks. Continue daily Santyl dressing changes. Eat a consistent carb/cardiac diet. Take medications as prescribed. Return to the emergency department as needed for concerning symptoms. Time Spent: Greater than 30 Minutes Stroke Is this a Stroke Patient?: Yes Stroke Pt being discharged on Anti-thrombolytic therapy?: Yes Acute Heart Failure - Is this a Heart Failure Patient?: No
[2019-05-24 12:37] VITALS: BP 146/78
[2019-05-24] MEDS: COLLAGENASE CLOSTRIDIUM HIST. OINT 30 GM TP SCH (13:18)
== END 2019-05-24 16:01 | DRG 638 ==
LOC: ER 19:03 → EH 22:36 → 3N 05-18 03:53
PROVIDERS: ADMIT Emergency Medicine; ATTEND Emergency Medicine
DX: E11.621 Type 2 diabetes mellitus with foot ulcer (principal); L03.115 Cellulitis of right lower limb; L97.512 Non-pressure chronic ulcer of other part of right foot with fat layer exposed; N17.9 Acute kidney failure, unspecified; N18.9 Chronic kidney disease, unspecified; E11.51 Type 2 diabetes mellitus with diabetic peripheral angiopathy without gangrene; I12.9 Hypertensive chronic kidney disease with stage 1 through stage 4 chronic kidney disease, or unspecified chronic kidney disease; E11.22 Type 2 diabetes mellitus with diabetic chronic kidney disease; E83.42 Hypomagnesemia; F32.9 Major depressive disorder, single episode, unspecified; F17.210 Nicotine dependence, cigarettes, uncomplicated; Z60.2 Problems related to living alone; Z79.899 Other long term (current) drug therapy; Z79.84 Long term (current) use of oral hypoglycemic drugs; Z79.891 Long term (current) use of opiate analgesic; Z89.421 Acquired absence of other right toe(s); Z91.14 Patient's other noncompliance with medication regimen; Z82.49 Family history of ischemic heart disease and other diseases of the circulatory system; Z80.9 Family history of malignant neoplasm, unspecified
CPT/HCPCS: 36415; 80048; 80053; 80061; 80202; 82565; 82962; 83036; 83735; 84439; 84443; 84481; 85025; 85027; 85652; 86140; 87040; 96361; 96365; 96375; 99285; J0360; J1644; J1815; J2270; J2300; J2405; J2543; J3370; J3475; J3490; J7030; J7060; J7120; J7614

== ENCOUNTER → 2019-06-08 | Outpatient (CLI) | payer MEDICARE ==
--- NOTE | 2019-06-09 07:47 | XCELERA REPORT ---
[address] [address] Lower Extremity Arterial Evaluation Name: ANTHONY PAZ Age: 63 yrs Gender: Male : 1955 Patient Status: Outpatient Patient Location: Study Date: 06/08/2019 01:23 PM Procedure: A color flow and duplex scan of the lower extremity arteries was performed bilaterally with velocity and waveform anaylsis. Reason For Study: RT FOOT ULCER Ordering Physician: TAYLOR JONAS Performed By: Jennifer Granado Measurements and Calculations Right Left [employer] MECH[employer]IC PSV 138.3 157.9 cm/sec Prox PFA PSV -100.6 -99.3 cm/sec Prox SFA PSV 115.0 113.1 cm/sec Mid SFA PSV -154.0 -153.7cm/sec Dist SFA PSV -146.9 -158.0cm/sec Prox Pop A PSV 321.3 123.2 cm/sec Dist GUZMAN PSV 114.7 129.0 cm/sec Dist EMERGENC[employer] PLANNING AND RESP[employer]SE MANAGER PSV 270.3 91.7 cm/sec Henry Pedis PSV 117.5 125.7 cm/sec Right Side Arterial Evaluation Normal velocity and triphasic waveforms noted from the Common Femoral artery to the infrageniculate vessels . Biphasic with normal velocity in the Deep Femoral and Dorsalis Pedis arteries. Ankle Brachial index 1.23 in the Dorsalis Pedis, Non compressible in the Posterior Tibial artery. Left Side Arterial Evaluation Normal velocity and triphasic waveforms noted from the Common Femoral artery to the infrageniculate vessels . Biphasic with normal velocity in the Deep Femoral and Dorsalis Pedis arteries. Ankle Brachial index not evaluable, non compressible. Interpretation Summary Mild hemodynamically significant lesions in the bilateral lower extremities, on duplex imaging, at rest. Duplex evaluation shows significant findings in the Deep Femoral and Dorsalis Pedis arteries. This seems well compensated by normal findings in the other major vessels. GUERRERO's normal on right although there is bilateral non compressibility, indicative of arterial wall stiffness, likely due to atherosclerosis, calcification. : TAYLOR JONAS > Johnny Lobato
== END ==
LOC: SP 12:41
PROVIDERS: ATTEND Preventive Medicine Undersea and Hyperbaric Medicine
DX: E11.621 Type 2 diabetes mellitus with foot ulcer (principal); L97.512 Non-pressure chronic ulcer of other part of right foot with fat layer exposed
CPT/HCPCS: 93922; 93925

== ENCOUNTER 2019-09-27 21:16 | Inpatient (IN) | payer MEDICARE, OTHER ==
[2019-09-27 22:06] LABS: ABSOLUTE LYMPHOCYTES (AUTO) 0.5 10^3/uL (0.5-4.7); ABSOLUTE MONOCYTES (AUTO) 0.5 10^3/uL (0.1-1.4); ABSOLUTE NEUT (AUTO) 7.7 10^3/uL (1.7-8.2); BASOPHILS % (AUTO) 0.2 % (0-2); HEMATOCRIT 41.2 % (37.9-51.0); MEAN CORPUSCULAR HEMOGLOBIN 29.2 pg (27.0-33.4); MEAN CORPUSCULAR VOLUME 86 fl (80-97); MONOCYTES % (AUTO) 5.6 % (3-13); PLATELET COUNT 311 10^3/uL (150-450); RED CELL DISTRIBUTION WIDTH 16.7 % (11.5-14.0); SEGMENTED NEUTROPHILS % (AUTO) 88.2 % (42-78); TOTAL CELLS COUNTED % (AUTO) 100 %; WHITE BLOOD COUNT 8.7 10^3/uL (4.0-10.5)
[2019-09-27 22:13] LABS: APPEARANCE,URINE SLIGHTLY-CLOUDY; BILIRUBIN,URINE NEGATIVE (NEGATIVE); COLOR,URINE YELLOW; GLUCOSE, URINE 50 mg/dL (NEGATIVE); KETONES,URINE 20 mg/dL (NEGATIVE); LEUKOCYTE ESTERASE,URINE NEGATIVE (NEGATIVE); NITRITE,URINE NEGATIVE (NEGATIVE); PROTEIN,URINE >=500 mg/dL (NEGATIVE); URINE SPECIFIC GRAVITY 1.024; UROBILINOGEN,URINE NEGATIVE mg/dL (<2.0)
[2019-09-27 22:26] LABS: ALBUMIN 4.3 g/dL (3.5-5.0); ALKALINE PHOSPHATASE 98 U/L (38-126); ASPARTATE AMINO TRANSFERASE 65 U/L (17-59); BILIRUBIN,DIRECT 0.6 mg/dL (0.0-0.4); BILIRUBIN,TOTAL 0.9 mg/dL (0.2-1.3); BLOOD UREA NITROGEN 45 mg/dL (7-20); CALCIUM 9.1 mg/dL (8.4-10.2); CHLORIDE 95 mmol/L (98-107); CREATINE KINASE 1466 U/L (55-170); GLUCOSE 124 mg/dL (75-110); POTASSIUM 4.9 mmol/L (3.6-5.0); TOTAL PROTEIN 8.4 g/dL (6.3-8.2)
[2019-09-27 22:31] LABS: CARBON DIOXIDE 18 mmol/L (22-30)
[2019-09-27 22:32] LABS: ANION GAP 26 (5-19)
[2019-09-27 22:37] LABS: CREATINE KINASE MB 16.6 ng/mL (<4.55); TROPONIN I 0.033 ng/mL
[2019-09-27] MEDS ORDERED: NORMAL SALINE 1000 ML 1,000 ML IV ONE (23:41)
[2019-09-27] MEDS ORDERED: ONDANSETRON HCL INJ/PF 4 MG/2 ML SDV IV ONE (23:41)
[2019-09-28 00:19] LABS: ALCOHOL < 10 mg/dL (NONE DETECTED)
[2019-09-28 00:27] LABS: URINE AMPHETAMINES SCREEN NEGATIVE; URINE BARBITURATES SCREEN NEGATIVE; URINE BENZODIAZEPINES SCREEN NEGATIVE; URINE COCAINE SCREEN NEGATIVE; URINE MARIJUANA (THC) SCREEN NEGATIVE; URINE METHADONE SCREEN NEGATIVE; URINE PHENCYCLIDINE SCREEN NEGATIVE
--- NOTE | 2019-09-28 00:38 | RADIOLOGY REPORT (SQ) ---
EXAM DESCRIPTION: CT ABDOMEN PELVIS WITHOUT IV CONTRAST COMPLETED DATE/TME: 09/27/2019 23:42 CLINICAL HISTORY: 64 years, Male, abdominal pain COMPARISON: None. TECHNIQUE: Images stored on PACS. All CT scanners at this facility use dose modulation, iterative reconstruction, and/or weight based dosing when appropriate to reduce radiation dose to as low as reasonably achievable (ALARA). [facility]: Dose Right [facility]: CareDose [facility]: Dose Right [facility]: Teradose 4D [facility]: [employer] LIMITATIONS: None. FINDINGS: Lung bases are grossly clear. The heart is of normal size with coronary calcification. No pleural or pericardial effusion. The liver is homogeneous. Gallbladder is nondistended without inflammatory change. The pancreas, spleen, and adrenals are normal. The kidneys that show mild cortical loss with vascular calcification but no urolithiasis hydronephrosis or hydroureter. The bowel is nonobstructed. Diverticulosis of the colon distally. No acute diverticulitis. No focal inflammatory changes. The appendix is normal. No free air. No free fluid. Pelvic contents are unremarkable. The aorta is calcified but nonaneurysmal. Calcification of the vas deferens. Presumed diabetes. Visualized bones demonstrate age-appropriate osteoarthritis. Mild wedging of the superior endplate of T12, which appears old. Mild anterior spondylolisthesis of L4 and L5 due to facet degenerative change. Subacute posttraumatic change left hemithorax IMPRESSION: No acute intra-abdominal process identified TECHNICAL DOCUMENTATION: Quality ID # 436: Final reports with documentation of one or more dose reduction techniques (e.g., Automated exposure control, adjustment of the mA and/or kV according to patient size, use of iterative reconstruction technique) copyright 2011 [employer]- All Rights Reserved
--- NOTE | 2019-09-28 00:53 | RADIOLOGY REPORT (SQ) ---
EXAM DESCRIPTION: XR CHEST 1 VIEW COMPLETED DATE/TME: 09/27/2019 23:44 CLINICAL HISTORY: 64 years, Male, cough COMPARISON: February 24, 2016 NUMBER OF VIEWS: Single TECHNIQUE: LIMITATIONS: None. FINDINGS: Cardiomediastinal silhouette is normal. Lungs are grossly clear. Subacute/old posttraumatic change left hemithorax IMPRESSION: Lungs grossly clear copyright 2011 [employer]- All Rights Reserved
--- NOTE | 2019-09-28 00:56 | RADIOLOGY REPORT (SQ) ---
EXAM: XR Right Foot Complete, 3 Views EXAM DATE/TIME: 09/28/2019 at 12:15 AM CLINICAL HISTORY: The patient is 64 years old and is Male; pain TECHNIQUE: Frontal, lateral and oblique views of the right foot. 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 There has also been prior amputation of the phalanges of the 3rd and 4th digits. There is no acute fracture visualized. No dislocation. There is no definite osseous erosion visualized. SOFT TISSUES: Soft tissue air is again visualized about the plantar aspect of the forefoot, at the level of the metatarsophalangeal joints. There is osseous spurring along the plantar aspect of the calcaneus, at the origin of the plantar fascia. VASCULATURE: Vascular calcifications noted. IMPRESSION: Soft tissue air again visualized about the plantar aspect of the forefoot, likely correlating to a chronic ulceration. No definite radiographic evidence of osteomyelitis. If not contraindicated, MRI could be performed for further evaluation.
[2019-09-28] MEDS ORDERED: NORMAL SALINE 1000 ML 1,000 ML IV ONE (02:59)
[2019-09-28] MEDS ORDERED: PANTOPRAZOLE SODIUM 40 MG VIAL IV ONE (02:59)
[2019-09-28] MEDS ORDERED: METOCLOPRAMIDE HCL INJ/PF 10 MG/2 ML SDV IV ONE (02:59)
[2019-09-28] MEDS ORDERED: PIPERACILLIN/TAZOBACTAM 3.375 GM VIAL IV ONE (06:49)
--- NOTE | 2019-09-28 06:56 | ER Document Report ---
ED General - General Chief Complaint: Nausea/Vomiting Stated Complaint: NAUSEA AND VOMITING Time Seen by Provider: 09/27/19 22:22 Primary Care Provider: LUISA WHATLEY MD [Primary Care Provider] - Follow up as needed TRAVEL OUTSIDE OF THE [place] IN LAST 30 DAYS: No - HPI Notes: 64-year-old male with history of diabetes mellitus type 2, peripheral vascular disease and chronic kidney disease brought in by EMS after being found in a public park vomiting, cold and mildly disoriented. By the time of arrival here the patient was awake and alert and reported that he had been discharged from a local jail because of lack of health insurance and ability to pay for further care. He basically has been homeless for the last week or so living in the park. Patient has a chronic nonhealing ulceration of his right foot. He has previously received wound care for this but is had no care recently. - Related Data Allergies/Adverse Reactions: No Known Allergies Allergy (Verified 09/27/19 21:24) Past Medical History - General Information source: Patient, Emergency Med Personnel, [facility] Records - Social History Smoking Status: Former Smoker Chew tobacco use (# tins/day): No Frequency of alcohol use: Occasional Drug Abuse: None Family History: Hypertension, Malignancy. denies: CAD, DM Patient has suicidal ideation: No Patient has homicidal ideation: No - Past Medical History Cardiac Medical History: Reports: Hx Hypertension, Hx Peripheral Vascular Disease Denies: Hx Coronary Artery Disease, Hx Heart Attack Pulmonary Medical History: Denies: Hx Asthma, Hx Bronchitis, Hx COPD, Hx Pneumonia Neurological Medical History: Denies: Hx Cerebrovascular Accident, Hx Seizures Endocrine Medical History: Reports: Hx Diabetes Mellitus Type 2 - non compliant with medications. Denies: Hx Diabetes Mellitus Type 1, Hx Hyperthyroidism, Hx Hypothyroidism Renal/ Medical History: Denies: Hx Peritoneal Dialysis GI Medical History: Denies: Hx Cirrhosis, Hx Hepatitis Musculoskeletal Medical History: Denies Hx Arthritis, Denies Hx Gout Skin Medical History: Denies Hx Eczema, Denies Hx Psoriasis Psychiatric Medical History: Reports: Hx Depression Infectious Medical History: Denies: Hx Hepatitis Past Surgical History: Reports: Hx Vascular Surgery - Amputations: right third, fourth and fifth toes, left second and third toes, Other - Multiple toe amputations - Immunizations Hx Diphtheria, Pertussis, Tetanus Vaccination: No Hx Pneumococcal Vaccination: 09/26/13 Review of Systems - Review of Systems Notes: Constitutional: Negative for fever. HENT: Negative for sore throat. Eyes: Negative for visual changes. Cardiovascular: Negative for chest pain. Respiratory: Negative for shortness of breath. Gastrointestinal: As per HPI. Genitourinary: Negative for dysuria. Musculoskeletal: Chronic ulceration of foot. Negative for back pain. Skin: Negative for rash. Neurological: Negative for headaches, weakness or numbness. 10 point ROS negative except as marked above and in HPI. Physical Exam - Vital signs Vitals: Resp BP 18 138/77 H 09/27/19 22:00 09/27/19 22:00 - Notes Notes: GENERAL: Disheveled man appearing approximately stated age who is vomiting. SKIN: Good turgor no rashes. HEAD: Normocephalic atraumatic. EYES: PERRLA. EOMI. Conjunctivae and sclerae clear. EARS: CANALS AND TMS CLEAR. NOSE: CLEAR. MOUTH: Moist mucosa. Good dentition. No stridor or edema. No drooling. NECK: Supple. No masses or thyromegaly. No adenopathy. Carotids 2+ without bruits. No JVD. BACK: Symmetrical without tenderness. CHEST: Respirations unlabored. Breath sounds clear and symmetrical. HEART: Regular rhythm. No murmur gallop or rub. ABDOMEN: Soft nontender without masses, organomegaly or rebound. Bowel sounds normally active. No bruits. GENITALIA: Deferred. EXTREMITIES: Multiple amputated toes right foot. Patient has a 3.5 cm ulceration of the plantar surface of the right foot at the base of the hallux. He is a filthy dressing on this which we have removed. There is some maceration of the tissue with no active drainage and some minimal surrounding redness. No edema. No calf tenderness. Cap refill less than 1.5 seconds. Dorsalis pedis and posterior tibial pulses 1+ and symmetrical. NEUROLOGICAL: GCS 15. Alert and oriented x3. Fluent speech. Cranial nerves II through XII intact. Sensorimotor and cerebellar normal. Normal tone. PSYCHIATRIC: Appropriate affect. Course - Vital Signs Vital signs: Temp Pulse Resp BP Pulse Ox 98.2 F 90 21 H 140/71 H 100 09/27/19 22:32 09/27/19 22:32 09/27/19 22:32 09/27/19 22:32 09/27/19 22:32 - Laboratory Result Diagrams: 09/27/19 21:50 09/27/19 21:50 Laboratory results interpreted by me: 09/27/19 09/27/19 09/27/19 21:50 21:50 21:50 RDW 16.7 H Lymph % (Auto) 6.0 L Seg Neutrophils % 88.2 H Chloride 95 L Carbon Dioxide 18 L Anion Gap 26 H BUN 45 H Creatinine 3.25 H Est GFR ( Amer) 23 L Est GFR (MDRD) Non-Af 19 L Glucose 124 H Direct Bilirubin 0.6 H AST 65 H Creatine Kinase 1466 H CK-MB (CK-2) 16.60 H Total Protein 8.4 H Urine Protein Urine Glucose (UA) Urine Ketones Urine Blood 09/27/19 21:50 RDW Lymph % (Auto) Seg Neutrophils % Chloride Carbon Dioxide Anion Gap BUN Creatinine Est GFR ( Amer) Est GFR (MDRD) Non-Af Glucose Direct Bilirubin AST Creatine Kinase CK-MB (CK-2) Total Protein Urine Protein >=500 H Urine Glucose (UA) 50 H Urine Ketones 20 H Urine Blood SMALL H Discharge - Discharge Clinical Impression: Diabetic infection of right foot, Diabetes mellitus type 2 in nonobese, Acute kidney injury superimposed on chronic kidney disease Condition: Fair Disposition: ADMITTED INPATIENT Admitting Provider: Jayro (Hospitalist) Unit Admitted: Medical Floor Referrals: LUISA WHATLEY MD [Primary Care Provider] - Follow up as needed
[2019-09-28 08:05] LABS: VENOUS BLOOD BASE EXCESS -2.3 mmol/L; VENOUS BLOOD HCO3 22.5 mmol/L (20-32); VENOUS BLOOD PCO2 38.9 mmHg (35-63); VENOUS BLOOD PH 7.38 (7.30-7.42)
[2019-09-28 08:28] LABS: ALKALINE PHOSPHATASE 72 U/L (38-126); ANION GAP 12 (5-19); ASPARTATE AMINO TRANSFERASE 59 U/L (17-59); BILIRUBIN,DIRECT 0.4 mg/dL (0.0-0.4); BILIRUBIN,TOTAL 0.5 mg/dL (0.2-1.3); BLOOD UREA NITROGEN 48 mg/dL (7-20); CALCIUM 7.5 mg/dL (8.4-10.2); CARBON DIOXIDE 23 mmol/L (22-30); CHLORIDE 102 mmol/L (98-107); GLUCOSE 159 mg/dL (75-110); POTASSIUM 4.1 mmol/L (3.6-5.0); TOTAL PROTEIN 6.4 g/dL (6.3-8.2)
[2019-09-28] MEDS ORDERED: VANCOMYCIN HCL 0 MG in DEXTROSE 5%-WATER 250 ML IV NR (11:15)
[2019-09-28] MEDS ORDERED: ACETAMINOPHEN 325 MG TABLET PO PRN (11:28)
[2019-09-28] MEDS ORDERED: TEMAZEPAM 7.5 MG CAPSULE PO PRN (11:28)
[2019-09-28] MEDS ORDERED: IPRATROPIUM/ALBUTEROL 0.5-2.5 MG/3 ML AMPUL NEB PRN (11:28)
[2019-09-28] MEDS ORDERED: MAGNESIUM HYDROXIDE SUSP 30 ML UDCUP PO PRN (11:28)
[2019-09-28] MEDS ORDERED: ONDANSETRON HCL INJ/PF 4 MG/2 ML SDV IV PRN (11:28)
[2019-09-28] MEDS ORDERED: OXYCODONE-ACETAMINOPHEN 5-325 MG TABLET PO PRN (11:28)
[2019-09-28] MEDS ORDERED: PROMETHAZINE HCL INJ 25 MG/1 ML VIAL IV PRN (11:28)
[2019-09-28] MEDS ORDERED: DEXTROSE 40% GEL 15 GM TUBE PO PRN ×2 (11:33)
[2019-09-28] MEDS ORDERED: DEXTROSE 50%-WATER 25 GM/50 ML DISP.SYRIN IV PRN ×2 (11:33)
[2019-09-28] MEDS ORDERED: GLUCAGON,HUMAN RECOMB 1 MG INJ IM PRN (11:33)
[2019-09-28] MEDS: NORMAL SALINE 1000 ML 1,000 ML IV PRN (15:17)
[2019-09-28] MEDS: PIPERACILLIN SODIUM/TAZOBACTAM 2.25 GM in NORMAL SALINE 50 ML IV SCH ×2 (15:17→21:59)
[2019-09-28] MEDS ORDERED: VANCOMYCIN HCL 750 MG in DEXTROSE 5%-WATER 250 ML IV SCH (16:00)
[2019-09-28] MEDS: INSULIN LISPRO 100 UNIT/ML 3 ML VIAL SUBCUT SCH ×2 (16:47→21:59)
[2019-09-28] MEDS: PANTOPRAZOLE SODIUM 40 MG TABLET.DR PO SCH (17:00)
[2019-09-28] MEDS: DOCUSATE SODIUM 100 MG/10 ML UDC PO SCH (17:05)
--- NOTE | 2019-09-28 17:25 | EKG REPORT ---
SEVERITY:- DEFECTIVE ECG - PROBABLE SINUS RHYTM .PROBABLY NORMAL . : Confirmed by: Kailee Stuart MD 28-Sep-2019 17:25:21
[2019-09-28] MEDS ORDERED: METOPROLOL TARTRATE PF/INJ 5 MG/5 ML SDV IV PRN (18:37)
[2019-09-28] MEDS ORDERED: HYDRALAZINE HCL INJ/PF 20 MG/1 ML SDV IV PRN (18:37)
--- NOTE | 2019-09-28 18:37 | PDOC H&P ---
History of Present Illness Admission Date/PCP: 09/28/19 08:10 LUISA WHATLEY MD History of Present Illness: ANTHONY PAZ is a 64 year old homeless male past medical history of untreated diabetes, CKD, to ED by EMS after noted to be vomiting in the public park, with disorientation. Monitor patient was brought to ED was alert aggressive dietary and disorientation has resolved. Patient is stating that he has chronic ulcer in his foot which he has been hospitalized for in the past however he has not been taking care of it very well due to financial reasons. Patient denies having any fever, chills, nausea, vomiting, diarrhea, constipation or any urinary symptoms. In ED right lower extremity x-ray was concerning for possible osteomyelitis, hospital consulted for admission. Past Medical History Cardiac Medical History: Reports: Hypertension, Peripheral Vascular Disease Denies: Coronary Artery Disease, Myocardial Infarction Pulmonary Medical History: Denies: Asthma, Bronchitis, Chronic Obstructive Pulmonary Disease (COPD), Pneumonia Neurological Medical History: Denies: Seizures Endocrine Medical History: Reports: Diabetes Mellitus Type 2 - non compliant with medications Denies: Diabetes Mellitus Type 1, Hyperthyroidism, Hypothyroidism GI Medical History: Denies: Cirrhosis, Hepatitis Musculoskeltal Medical History: Denies: Arthritis, Gout Skin Medical History: Denies: Eczema, Psoriasis Psychiatric Medical History: Reports: Depression Hematology: Denies: Anemia, Bleeding Tendencies Past Surgical History Past Surgical History: Reports: Vascular Surgery - Amputations: right third, fourth and fifth toes, left second and third toes, Other - Multiple toe amputations Social History Smoking Status: Former Smoker Electronic Cigarette use?: No Frequency of Alcohol Use: Occasional Hx Recreational Drug Use: No Drugs: None Hx Prescription Drug Abuse: No Family History Family History: Hypertension, Malignancy. denies: CAD, DM Parental Family History Reviewed: Yes Children Family History Reviewed: Yes Sibling(s) Family History Reviewed.: Yes Medication/Allergy Home Medications: No Home Medications 09/28/19 Allergies/Adverse Reactions: No Known Allergies Allergy (Verified 09/27/19 21:24) Review of Systems Review of Systems: as per hpi Physical Exam Vital Signs: Temp Pulse Resp BP Pulse Ox 98.4 F 78 18 144/77 H 100 09/28/19 17:27 09/28/19 17:27 09/28/19 17:27 09/28/19 17:27 02/26/20 17:27 Intake & Output 09/27/19 09/28/19 09/29/19 06:59 06:59 06:59 Intake Total 1999 50 Balance 1999 50 Weight 83.461 kg 83.461 kg General appearance: PRESENT: no acute distress, disheveled Head exam: PRESENT: atraumatic, normocephalic Respiratory exam: PRESENT: clear to auscultation simona. ABSENT: rales, rhonchi, wheezes Cardiovascular exam: PRESENT: RRR. ABSENT: diastolic murmur, rubs, systolic murmur GI/Abdominal exam: PRESENT: normal bowel sounds, soft. ABSENT: distended, guarding, mass, organolmegaly, rebound, tenderness Extremities exam: PRESENT: full ROM, other - Right foot base of the great toe skin ulceration with necrotic tissue, minimally tender, no discharge.. ABSENT: calf tenderness, clubbing, pedal edema Results Laboratory Results: 09/27/19 21:50 09/28/19 07:54 09/27/19 09/27/19 09/27/19 21:50 21:50 21:50 WBC 8.7 RBC 4.80 Hgb 14.0 Hct 41.2 MCV 86 MCH 29.2 MCHC 34.0 RDW 16.7 H Plt Count 311 Seg Neutrophils % 88.2 H VBG pH VBG pCO2 VBG HCO3 VBG Base Excess Sodium 139.0 Potassium 4.9 Chloride 95 L Carbon Dioxide 18 L Anion Gap 26 H BUN 45 H Creatinine 3.25 H Est GFR ( Amer) 23 L Glucose 124 H Calcium 9.1 Total Bilirubin 0.9 AST 65 H Alkaline Phosphatase 98 C-Reactive Protein Total Protein 8.4 H Albumin 4.3 Lipase Urine Color YELLOW Urine Appearance SLIGHTLY-CLOUDY Urine pH 5.0 Ur Specific Cooter 1.024 Urine Protein >=500 H Urine Glucose (UA) 50 H Urine Ketones 20 H Urine Blood SMALL H Urine Nitrite NEGATIVE Ur Leukocyte Esterase NEGATIVE Urine WBC (Auto) 10 Urine RBC (Auto) 1 09/27/19 09/28/19 09/28/19 21:50 07:54 07:54 WBC RBC Hgb Hct MCV MCH MCHC RDW Plt Count Seg Neutrophils % VBG pH 7.38 VBG pCO2 38.9 VBG HCO3 22.5 VBG Base Excess -2.3 Sodium 137.0 Potassium 4.1 Chloride 102 Carbon Dioxide 23 Anion Gap 12 BUN 48 H Creatinine 3.06 H Est GFR ( Amer) 25 L Glucose 159 H Calcium 7.5 L Total Bilirubin 0.5 AST 59 Alkaline Phosphatase 72 C-Reactive Protein Total Protein 6.4 Albumin 3.0 L Lipase 116.3 Urine Color Urine Appearance Urine pH Ur Specific Cooter Urine Protein Urine Glucose (UA) Urine Ketones Urine Blood Urine Nitrite Ur Leukocyte Esterase Urine WBC (Auto) Urine RBC (Auto) 09/28/19 07:54 WBC RBC Hgb Hct MCV MCH MCHC RDW Plt Count Seg Neutrophils % VBG pH VBG pCO2 VBG HCO3 VBG Base Excess Sodium Potassium Chloride Carbon Dioxide Anion Gap BUN Creatinine Est GFR ( Amer) Glucose Calcium Total Bilirubin AST Alkaline Phosphatase C-Reactive Protein 50.5 H Total Protein Albumin Lipase Urine Color Urine Appearance Urine pH Ur Specific Cooter Urine Protein Urine Glucose (UA) Urine Ketones Urine Blood Urine Nitrite Ur Leukocyte Esterase Urine WBC (Auto) Urine RBC (Auto) 09/27/19 09/27/19 21:50 21:50 Creatine Kinase 1466 H CK-MB (CK-2) 16.60 H Troponin I 0.033 Impressions: Abdomen/Pelvis CT 09/27/19 23:42 IMPRESSION: No acute intra-abdominal process identified TECHNICAL DOCUMENTATION: Quality ID # [id number]: Final reports with documentation of one or more dose reduction techniques (e.g., Automated exposure control, adjustment of the mA and/or kV according to patient size, use of iterative reconstruction technique) copyright 2010 [employer]- All Rights Reserved Foot X-Ray 09/27/19 23:43 IMPRESSION: Soft tissue air again visualized about the plantar aspect of the forefoot, likely correlating to a chronic ulceration. No definite radiographic evidence of osteomyelitis. If not contraindicated, MRI could be performed for further evaluation. Chest X-Ray 09/27/19 23:44 IMPRESSION: Lungs grossly clear copyright 2010 [employer]- All Rights Reserved Assessment and Plan - Diagnosis (1) Diabetic foot ulcer Qualifiers: Diabetic foot ulcer location: toe Diabetes mellitus type: type 2 Laterality: right Non-pressure ulcer stage: limited to breakdown of skin Qualified Code(s): E11.621 - Type 2 diabetes mellitus with foot ulcer; L97.511 - Non-pressure chronic ulcer of other part of right foot limited to breakdown of skin Is this a current diagnosis for this admission?: Yes Plan: Right foot base of great toe skin compromise with necrotic tissue. Minimally tender. No discharge. Neurovascularly intact. Admit to medical floor. ESR CRP. Empiric IV antibiotics. Wound culture. Blood culture. MRI to rule out osteomyelitis. Consult surgery for possible intervention. (2) Acute kidney injury superimposed on chronic kidney disease Is this a current diagnosis for this admission?: Yes Plan: Prerenal. Creatinine at baseline. Patient does not have a institution librarian. Patient electrolytes are WNL, appears dry. Cautious volume resuscitation guided by volume status, strict in and out. Avoid nephrotoxic meds. Will consult nephrology. (3) Diabetes mellitus type 2 in nonobese Is this a current diagnosis for this admission?: Yes Plan: History of uncontrolled diabetes. Diabetic diet. Basal, sliding, prandial insulin. Hypoglycemia protocol. Accu- Chek. Diabetic education. Outpatient PCP follow-up. (4) Hypertension Qualifiers: Is this a current diagnosis for this admission?: Yes Plan: History of uncontrolled hypertension. Not a candidate for VON or ARB, or diuretics. We will start on low-dose calcium channel blockers. Monitor vitals. Adjust meds as needed. Outpatient PCP follow-up. (5) Homelessness Is this a current diagnosis for this admission?: Yes Plan: balcony worker consulted for possible help.
[2019-09-28] MEDS: AMLODIPINE BESYLATE 5 MG TABLET PO SCH (19:38)
--- NOTE | 2019-09-28 20:24 | RADIOLOGY REPORT (SQ) ---
MR LOWER EXTREMITY WITHOUT IV CONTRAST HISTORY: Ulcer underlying great toe. COMPARISON: Radiographs from earlier the same day. TECHNIQUE: Multiplanar, multisequence MR imaging of the right foot was performed without the administration of intravenous gadolinium. FINDINGS: There is focal soft tissue ulceration with subcutaneous edema underlying the great toe MTP joint. No abnormal T1 signal to suggest acute osteomyelitis. No bone marrow edema or fracture is seen. Prior amputation of the third-fifth digits. Diffuse fatty atrophy of the plantar foot musculature. The visualized tendons are grossly intact. IMPRESSION: No evidence of acute osteomyelitis.
[2019-09-28] MEDS: INSULIN GLARGINE,HUM.REC.ANLOG 1,000 UNIT/10 ML VIAL SUBCUT SCH (21:59)
[2019-09-29] MEDS: PIPERACILLIN SODIUM/TAZOBACTAM 2.25 GM in NORMAL SALINE 50 ML IV SCH (02:28)
[2019-09-29] MEDS: PANTOPRAZOLE SODIUM 40 MG TABLET.DR PO SCH ×2 (05:05→16:45)
[2019-09-29] MEDS: NORMAL SALINE 1000 ML 1,000 ML IV PRN (05:06)
--- NOTE | 2019-09-29 05:42 | PDOC CONSULTATION ---
Consultation Consult Date: 09/29/19 Provider Consulted: SURGICAL SURGICALIST Consult reason:: Diabetic foot ulcer/callus. History of Present Illness Admission Date/PCP: 09/28/19 08:10 LUISA WHATLEY MD History of Present Illness: ANTHONY PAZ is a 64 year old male seen in consultation at the request of the hospitalist service. This is a 64-year-old male with uncontrolled diabetes. He has a malperforans ulcer on the right foot that is chronic. He denies pain, redness, drainage, or other problem associated with the ulcer. The patient reports that he has not sought medical care for the foot in a long time due to financial reasons. The patient was admitted to the hospital for disorientation and confusion. Upon my evaluation, his mentation appears to be intact. He denies fevers, chills, nausea, vomiting, chest pain, shortness of breath, pain in his foot, redness, drainage, or any other symptom. His only complaint this evening is "being hot". Past Medical History Cardiac Medical History: Reports: Hypertension, Peripheral Vascular Disease Denies: Coronary Artery Disease, Myocardial Infarction Pulmonary Medical History: Denies: Asthma, Bronchitis, Chronic Obstructive Pulmonary Disease (COPD), Pneumonia Neurological Medical History: Denies: Seizures Endocrine Medical History: Reports: Diabetes Mellitus Type 2 - non compliant with medications Denies: Diabetes Mellitus Type 1, Hyperthyroidism, Hypothyroidism GI Medical History: Denies: Cirrhosis, Hepatitis Musculoskeltal Medical History: Denies: Arthritis, Gout Skin Medical History: Denies: Eczema, Psoriasis Psychiatric Medical History: Reports: Depression Hematology: Denies: Anemia, Bleeding Tendencies Past Surgical History Past Surgical History: Reports: Vascular Surgery - Amputations: right third, fourth and fifth toes, left second and third toes, Other - Multiple toe amputations Social History Smoking Status: Former Smoker Electronic Cigarette use?: No Frequency of Alcohol Use: Occasional Hx Recreational Drug Use: No Drugs: None Hx Prescription Drug Abuse: No Family History Family History: Hypertension, Malignancy. denies: CAD, DM Parental Family History Reviewed: Yes Children Family History Reviewed: Yes Sibling(s) Family History Reviewed.: Yes Medication/Allergy Home Medications: No Home Medications 09/28/19 Allergies/Adverse Reactions: No Known Allergies Allergy (Verified 09/27/19 21:24) Review of Systems Constitutional: ABSENT: anorexia, chills Eyes: ABSENT: visual disturbances Ears: ABSENT: hearing changes Nose, Mouth, and Throat: ABSENT: mouth pain, sore throat Cardiovascular: ABSENT: chest pain Respiratory: ABSENT: cough Gastrointestinal: ABSENT: abdominal pain, nausea, vomiting Genitourinary: ABSENT: dysuria Musculoskeletal: ABSENT: back pain Integumentary: PRESENT: wounds - Ulcer to the plantar surface of the right foot. ABSENT: pruritus Neurological: ABSENT: abnormal speech, dizziness Psychiatric: ABSENT: anxiety, depression Endocrine: ABSENT: cold intolerance, heat intolerance Hematologic/Lymphatic: ABSENT: easy bleeding, easy bruising Physical Exam Vital Signs: Temp Pulse Resp BP Pulse Ox 98.1 F 85 18 118/67 100 09/28/19 22:55 09/28/19 22:55 09/28/19 22:55 09/28/19 22:55 09/28/19 22:55 Intake & Output 09/27/19 09/28/19 09/29/19 06:59 06:59 06:59 Intake Total 1999 Output Total 700 Balance 1999 Weight 83.461 kg 83.461 kg General appearance: PRESENT: no acute distress, cooperative Head exam: PRESENT: atraumatic, normocephalic Eye exam: PRESENT: EOMI, PERRLA. ABSENT: scleral icterus Mouth exam: PRESENT: moist, neck supple Neck exam: ABSENT: meningismus, tenderness, thyromegaly, tracheal deviation Respiratory exam: PRESENT: clear to auscultation simona, unlabored. ABSENT: chest wall tenderness, tachypnea Cardiovascular exam: ABSENT: tachycardia Pulses: PRESENT: normal radial pulses GI/Abdominal exam: PRESENT: soft. ABSENT: distended, firm, guarding, rigid, tenderness Rectal exam: PRESENT: deferred Extremities exam: ABSENT: clubbing Neurological exam: PRESENT: alert, awake, oriented to person, oriented to place, oriented to time, oriented to situation, CN II-XII grossly intact Psychiatric exam: ABSENT: agitated, anxious Focused psych exam: ABSENT: delusional Skin exam: PRESENT: other - Hypertrophic callus to the right foot, plantar surfa ce, at the metatarsal head. There is no evidence of erythema, induration, or purulence. Results Laboratory Results: 09/27/19 21:50 09/28/19 07:54 09/28/19 09/28/19 09/28/19 07:54 07:54 07:54 VBG pH 7.38 VBG pCO2 38.9 VBG HCO3 22.5 VBG Base Excess -2.3 Sodium 137.0 Potassium 4.1 Chloride 102 Carbon Dioxide 23 Anion Gap 12 BUN 48 H Creatinine 3.06 H Est GFR ( Amer) 25 L Glucose 159 H Calcium 7.5 L Total Bilirubin 0.5 AST 59 Alkaline Phosphatase 72 C-Reactive Protein 50.5 H Total Protein 6.4 Albumin 3.0 L 09/27/19 09/27/19 21:50 21:50 Creatine Kinase 1466 H CK-MB (CK-2) 16.60 H Troponin I 0.033 Impressions: Abdomen/Pelvis CT 09/27/19 23:42 IMPRESSION: No acute intra-abdominal process identified TECHNICAL DOCUMENTATION: Quality ID # [id number]: Final reports with documentation of one or more dose reduction techniques (e.g., Automated exposure control, adjustment of the mA and/or kV according to patient size, use of iterative reconstruction technique) copyright 2010 [employer]- All Rights Reserved Foot X-Ray 09/27/19 23:43 IMPRESSION: Soft tissue air again visualized about the plantar aspect of the forefoot, likely correlating to a chronic ulceration. No definite radiographic evidence of osteomyelitis. If not contraindicated, MRI could be performed for further evaluation. Chest X-Ray 09/27/19 23:44 IMPRESSION: Lungs grossly clear copyright 2010 [employer]- All Rights Reserved Lower Extremity MRI 09/28/19 00:00 IMPRESSION: No evidence of acute osteomyelitis. Assessment & Plan - Diagnosis (1) Diabetic foot ulcer Qualifiers: Diabetic foot ulcer location: toe Diabetes mellitus type: type 2 Laterality: right Non-pressure ulcer stage: limited to breakdown of skin Qualified Code(s): E11.621 - Type 2 diabetes mellitus with foot ulcer; L97.511 - Non-pressure chronic ulcer of other part of right foot limited to breakdown of skin Is this a current diagnosis for this admission?: Yes - Plan Summary Plan Summary: This is a 64-year-old male with a chronic diabetic foot wound. The patient has not sought treatment for his foot wound in many months, however at this time it is without sign of infection. There is a large callus in the area, however there is no erythema, drainage, induration, or exposed fatty tissue. I have reviewed the patient's MRI. There is no evidence of osteomyelitis. I would refer the patient back to the wound care clinic for care of his chronic foot wound. He does not require amputation, debridement, or other intervention today. Surgery will sign off at this time. Please renotify with any questions or concerns.
[2019-09-29 06:09] LABS: ABSOLUTE LYMPHOCYTES (AUTO) 1.5 10^3/uL (0.5-4.7); ABSOLUTE MONOCYTES (AUTO) 0.6 10^3/uL (0.1-1.4); ABSOLUTE NEUT (AUTO) 3.6 10^3/uL (1.7-8.2); BASOPHILS % (AUTO) 0.2 % (0-2); EOSINOPHILS % (AUTO) 0.9 % (0-6); HEMATOCRIT 34.5 % (37.9-51.0); HEMOGLOBIN 12.2 g/dL (13.5-17.0); LYMPHOCYTES % (AUTO) 25.4 % (13-45); MEAN CORPUSCULAR HEMOGLOBIN 29.9 pg (27.0-33.4); MEAN CORPUSCULAR HGB CONC 35.4 g/dL (32.0-36.0); MEAN CORPUSCULAR VOLUME 85 fl (80-97); MONOCYTES % (AUTO) 10.9 % (3-13); PLATELET COUNT 270 10^3/uL (150-450); RED BLOOD COUNT 4.09 10^6/uL (4.35-5.55); RED CELL DISTRIBUTION WIDTH 16.2 % (11.5-14.0); SEGMENTED NEUTROPHILS % (AUTO) 62.6 % (42-78); TOTAL CELLS COUNTED % (AUTO) 100 %; WHITE BLOOD COUNT 5.7 10^3/uL (4.0-10.5)
[2019-09-29 06:22] LABS: ALBUMIN 3.2 g/dL (3.5-5.0); ALKALINE PHOSPHATASE 77 U/L (38-126); ANION GAP 10 (5-19); ASPARTATE AMINO TRANSFERASE 68 U/L (17-59); BILIRUBIN,DIRECT 0.3 mg/dL (0.0-0.4); BILIRUBIN,TOTAL 0.5 mg/dL (0.2-1.3); BLOOD UREA NITROGEN 38 mg/dL (7-20); CALCIUM 8.6 mg/dL (8.4-10.2); CARBON DIOXIDE 26 mmol/L (22-30); CHLORIDE 103 mmol/L (98-107); GLUCOSE 91 mg/dL (75-110); POTASSIUM 4.2 mmol/L (3.6-5.0); TOTAL PROTEIN 6.9 g/dL (6.3-8.2)
[2019-09-29] MEDS: INSULIN LISPRO 100 UNIT/ML 3 ML VIAL SUBCUT SCH ×4 (07:40→22:39)
[2019-09-29] MEDS: ENOXAPARIN SODIUM INJ 30 MG/0.3 ML DISP.SYRIN SUBCUT SCH (09:36)
[2019-09-29] MEDS: DOCUSATE SODIUM 100 MG/10 ML UDC PO SCH ×2 (09:36→18:11)
[2019-09-29] MEDS: AMLODIPINE BESYLATE 5 MG TABLET PO SCH (09:36)
--- NOTE | 2019-09-29 13:01 | PDOC PROGRESS REPORT ---
Subjective Progress Note for:: 09/29/19 Subjective:: ANTHONY PAZ is a 64 year old homeless male past medical history of untreated diabetes, CKD, to ED by EMS after noted to be vomiting in the public park, with disorientation. Monitor patient was brought to ED was alert aggressive dietary and disorientation has resolved. Patient is stating that he has chronic ulcer in his foot which he has been hospitalized for in the past however he has not been taking care of it very well due to financial reasons. Patient denies having any fever, chills, nausea, vomiting, diarrhea, constipation or any urinary symptoms. 09/29/2019. No acute events overnight. Patient has been evaluated by surgery and no intervention planned as patient does not have any sign of infection or any osteomyelitis based on physical finding and MRI findings. Recommendation is for patient to follow-up at the wound care clinic. Patient is alert and returns well, no apparent distress, denies any fever, chills, nausea, vomiting, diarrhea, constipation or any urinary symptoms. Patient is stating that he does not have a place to go right now and he has looked into shelters at [facility] but not found any place, he is planning to rent a place with a female friend of her soon. Reason For Visit: DIABETIC FOOT, NAJMA Physical Exam Vital Signs: Temp Pulse Resp BP Pulse Ox 98.2 F 81 20 130/80 H 97 09/29/19 08:21 09/29/19 08:21 09/29/19 08:21 09/29/19 08:21 09/29/19 08:21 Intake & Output 09/28/19 09/29/19 09/30/19 06:59 06:59 06:59 Intake Total 1999 1720 Output Total 1000 Balance 1999 720 Weight 83.461 kg 73.2 kg General appearance: PRESENT: no acute distress, well-developed, well-nourished Head exam: PRESENT: atraumatic, normocephalic Respiratory exam: PRESENT: clear to auscultation simona. ABSENT: rales, rhonchi, w heezes Cardiovascular exam: PRESENT: RRR. ABSENT: diastolic murmur, rubs, systolic murmur GI/Abdominal exam: PRESENT: normal bowel sounds, soft. ABSENT: distended, guarding, mass, organolmegaly, rebound, tenderness Neurological exam: PRESENT: alert, awake, oriented to person, oriented to place, oriented to time, oriented to situation, CN II-XII grossly intact. ABSENT: motor sensory deficit Skin exam: PRESENT: other - Right foot base of great toe callus with necrotic tissue, no erythema, no discharge, no tenderness, no sign of infection. Results Laboratory Results: 09/29/19 05:23 09/29/19 05:23 09/28/19 09/29/19 09/29/19 07:54 05:23 05:23 WBC 5.7 RBC 4.09 L Hgb 12.2 L Hct 34.5 L MCV 85 MCH 29.9 MCHC 35.4 RDW 16.2 H Plt Count 270 Seg Neutrophils % 62.6 Sodium 138.9 Potassium 4.2 Chloride 103 Carbon Dioxide 26 Anion Gap 10 BUN 38 H Creatinine 2.76 H Est GFR ( Amer) 28 L Glucose 91 Calcium 8.6 Magnesium 2.0 Total Bilirubin 0.5 AST 68 H Alkaline Phosphatase 77 C-Reactive Protein 50.5 H Total Protein 6.9 Albumin 3.2 L 09/27/19 09/27/19 21:50 21:50 Creatine Kinase 1466 H CK-MB (CK-2) 16.60 H Troponin I 0.033 Impressions: Abdomen/Pelvis CT 09/27/19 23:42 IMPRESSION: No acute intra-abdominal process identified TECHNICAL DOCUMENTATION: Quality ID # 436: Final reports with documentation of one or more dose reduction techniques (e.g., Automated exposure control, adjustment of the mA and/or kV according to patient size, use of iterative reconstruction technique) copyright 2010 [employer]- All Rights Reserved Foot X-Ray 09/27/19 23:43 IMPRESSION: Soft tissue air again visualized about the plantar aspect of the forefoot, likely correlating to a chronic ulceration. No definite radiographic evidence of osteomyelitis. If not contraindicated, MRI could be performed for further evaluation. Chest X-Ray 09/27/19 23:44 IMPRESSION: Lungs grossly clear copyright 2010 [employer]- All Rights Reserved Lower Extremity MRI 09/28/19 00:00 IMPRESSION: No evidence of acute osteomyelitis. Assessment and Plan - Diagnosis (1) Acute kidney injury superimposed on chronic kidney disease Is this a current diagnosis for this admission?: Yes Plan: Improving. Prerenal. Creatinine at baseline. 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 Patient electrolytes are WNL, appears dry. Cautious volume resuscitation guided by volume status, strict in and out. Avoid nephrotoxic meds. Neurology consulted. Recommendations pending. (2) Diabetic foot ulcer Qualifiers: Diabetic foot ulcer location: toe Diabetes mellitus type: type 2 Laterality: right Non-pressure ulcer stage: limited to breakdown of skin Qualified Code(s): E11.621 - Type 2 diabetes mellitus with foot ulcer; L97.511 - Non-pressure chronic ulcer of other part of right foot limited to breakdown of skin Is this a current diagnosis for this admission?: Yes Plan: No osteomyelitis based on MRI and physical findings and surgery evaluation. Intervention indicated at this point as per surgery. Patient is to follow-up at the wound care as outpatient. Right foot base of great toe skin compromise with necrotic tissue. Minimally tender. No discharge. Neurovascularly intact. Received 1 day of IV vancomycin and Zosyn. DC IV antibiotics and there is no sign of osteomyelitis or cellulitis. Will DC to follow-up with wound care. Continue wound care. (3) Diabetes mellitus type 2 in nonobese Is this a current diagnosis for this admission?: Yes Plan: History of uncontrolled diabetes. Diabetic diet. Basal, sliding, prandial insulin. Hypoglycemia protocol. Accu- Chek. Diabetic education. Outpatient PCP follow-up. (4) Hypertension Qualifiers: Is this a current diagnosis for this admission?: Yes Plan: Euvolemic. Normotensive. History of untreated hypertension. Not a candidate for VON or ARB, or diuretics. Continue low-dose calcium channel blockers. Monitor vitals. Adjust meds as needed. Outpatient PCP follow-up. (5) Homelessness Is this a current diagnosis for this admission?: Yes Plan: garden worker consulted for possible help.
[2019-09-29] MEDS: CLINDAMYCIN HCL 150 MG CAPSULE PO SCH ×2 (13:51→22:39)
--- NOTE | 2019-09-29 18:08 | PDOC CONSULTATION ---
Consultation Consult Date: 09/29/19 Provider Consulted: [facility] Consult reason:: NAJMA on CKD History of Present Illness Admission Date/PCP: 09/28/19 08:10 LUISA WHATLEY MD History of Present Illness: ANTHONY PZA is a 64 year old male with diabetes mellitus type 2, hypertension, chronic kidney disease stage IV who was admitted yesterday due to vomiting and disorientation. Patient confirmed today that he had 3 days of nausea and vomiting without diarrhea. He said during those days he has not been eating well drinking much fluids. He has this chronic ulcer under his big toe months. In the emergency room right foot x-ray showed no evidence of osteomyelitis with a note of soft tissue chronic ulceration plantar aspect of the forefoot. MRI did not show any osteomyelitis of the right foot. Chest x- ray was clear. Abdominal and pelvic CT showed no acute intra-abdominal process. The CT also showed that the kidney had mild cortical loss with vascular calcification but no ureterolithiasis, hydronephrosis nor hydroureter. Surgery has been consulted. Patient was given a dose of IV Zosyn and vancomycin and is now currently switched to oral clindamycin. His baseline creatinine for the last 6 months at least has been between 2-2.5. Patient denies any gross hematuria, known proteinuria, nor any urination problem. He denies any history of kidney stones, denies any NSAID use nor abuse, denies any ggcn-[id number] herbal medications and denies any family history of kidney disease. Patient states that he has seen Dr. Richardson initially said about 8 to 10 months ago so I went ahead and reviewed the records from the office. Dr. Richardson saw him in 2015 with a creatinine of 1.5 but has been lost to follow-up. More recently he was seen by our physician dental assistant instructor, Kj Ojeda and he saw him last in 10/03/2019. His referring creatinine was 2.5. He was also noted to have a urine protein to creatinine ratio of 0.6. Today after being given IV fluids his BUN is now 38, creatinine of 2.76 with EGFR of 23. Blood pressure appears to be controlled. His hemoglobin A1c is 5.3. He is not taking any medications mostly due to financial constraints. Currently he said is feeling fine and does not really have much he feels better than yesterday. Past Medical History Cardiac Medical History: Reports: Hypertension-primary, Peripheral Vascular Disease Endocrine Medical History: Reports: Diabetes Mellitus Type 2 - non compliant with medications Complications of Diabetes: Reports: Nephropathy Renal/ Medical History: Reports: Chronic Kidney Disease Stage IV, Proteinuria Psychiatric Medical History: Reports: Depression Past Surgical History Past Surgical History: Reports: Vascular Surgery - Amputations: right third, fourth and fifth toes, left second and third toes Social History Information Source: Patient, [facility] Records Smoking Status: Former Smoker Electronic Cigarette use?: No Frequency of Alcohol Use: Occasional Hx Recreational Drug Use: No Drugs: None Hx Prescription Drug Abuse: No Family History Family History: DM - Father, Malignancy - Brother has pancreatic cancer, Other - Daughter has a condition is going blind. Parental Family History Reviewed: Yes Children Family History Reviewed: Yes Sibling(s) Family History Reviewed.: Yes Medication/Allergy Home Medications: No Home Medications 09/28/19 Allergies/Adverse Reactions: No Known Allergies Allergy (Verified 09/27/19 21:24) Review of Systems All systems: reviewed and no additional remarkable complaints except as stated Review of Systems: Constitutional: ABSENT: chills, fatigue, fever(s), headache(s), weight gain, weight loss Eyes: ABSENT: visual disturbances Ears: ABSENT: hearing changes Cardiovascular: ABSENT: chest pain, dyspnea on exertion, edema, orthropnea, palpitations Respiratory: ABSENT: cough, dyspnea, hemoptysis Gastrointestinal: ABSENT: abdominal pain, constipation, diarrhea, hematemesis, hematochezia; admits nausea and vomiting nausea, vomiting Genitourinary: ABSENT: dysuria, hematuria Musculoskeletal: ABSENT: joint swelling Integumentary: ABSENT: rash, wounds Neurological: ABSENT: abnormal gait, abnormal speech, dizziness, focal weakness, numbness, syncope; came in with reported confusion but has resolved Psychiatric: ABSENT: anxiety, depression Endocrine: ABSENT: cold intolerance, heat intolerance, polydipsia, polyuria Hematologic/Lymphatic: ABSENT: easy bleeding, easy bruising, lymphadenopathy Physical Exam Vital Signs: Temp Pulse Resp BP Pulse Ox 98.2 F 81 20 130/80 H 97 09/29/19 08:21 09/29/19 08:21 09/29/19 08:21 09/29/19 08:21 09/29/19 08:21 Intake & Output 09/28/19 09/29/19 09/30/19 06:59 06:59 06:59 Intake Total 1999 1720 Output Total 1000 Balance 1999 720 Weight 83.461 kg 73.2 kg Exam: General appearance: No acute distress, cooperative, well-developed, well- nourished Head exam: PRESENT: atraumatic, normocephalic Eye exam: PRESENT: Conjunctiva Udell, EOMI, PERRLA. ABSENT: conjunctival injection, scleral icterus Mouth exam: PRESENT: moist, neck supple, tongue midline Neck exam: PRESENT: full ROM. ABSENT: carotid bruit, JVD, lymphadenopathy, thyromegaly Respiratory exam: PRESENT: clear to auscultation bilaterally. ABSENT: rales, rhonchi, stridor, wheezes Cardiovascular exam: PRESENT: RRR, +S1, +S2. ABSENT: systolic murmur Pulses: PRESENT: normal radial pulses, normal dorsalis pedis pulses GI/Abdominal exam: PRESENT: normal bowel sounds, soft. ABSENT: guarding, mass, tenderness Rectal exam: Deferred Extremities exam: PRESENT: full ROM. ABSENT: calf tenderness, pedal edema Musculoskeletal: PRESENT: full ROM. There is a chronic ulcer at the plantar aspect of the right big toe with minimal necrotic tissue but no drainage no surrounding erythema. ABSENT: deformity Neurological exam: PRESENT: alert, Awake, Oriented to person, Oriented to place, Oriented to time, reflexes normal, CN II-XII grossly intact. ABSENT: motor sensory deficit Psychiatric exam: PRESENT: appropriate affect, normal mood. ABSENT: homicidal ideation, suicidal ideation Skin exam: PRESENT: intact, dry, warm. ABSENT: rash Results Laboratory Results: 09/29/19 05:23 09/29/19 05:23 09/28/19 09/29/19 09/29/19 07:54 05:23 05:23 WBC 5.7 RBC 4.09 L Hgb 12.2 L Hct 34.5 L MCV 85 MCH 29.9 MCHC 35.4 RDW 16.2 H Plt Count 270 Seg Neutrophils % 62.6 Sodium 138.9 Potassium 4.2 Chloride 103 Carbon Dioxide 26 Anion Gap 10 BUN 38 H Creatinine 2.76 H Est GFR ( Amer) 28 L Glucose 91 Calcium 8.6 Magnesium 2.0 Total Bilirubin 0.5 AST 68 H Alkaline Phosphatase 77 C-Reactive Protein 50.5 H Total Protein 6.9 Albumin 3.2 L 02/25/20 02/25/20 21:50 21:50 Creatine Kinase 1466 H CK-MB (CK-2) 16.60 H Troponin I 0.033 Impressions: Abdomen/Pelvis CT 09/27/19 23:42 IMPRESSION: No acute intra-abdominal process identified TECHNICAL DOCUMENTATION: Quality ID # 436: Final reports with documentation of one or more dose reduction techniques (e.g., Automated exposure control, adjustment of the mA and/or kV according to patient size, use of iterative reconstruction technique) copyright 2010 [employer]- All Rights Reserved Foot X-Ray 09/27/19 23:43 IMPRESSION: Soft tissue air again visualized about the plantar aspect of the forefoot, likely correlating to a chronic ulceration. No definite radiographic evidence of osteomyelitis. If not contraindicated, MRI could be performed for further evaluation. Chest X-Ray 09/27/19 23:44 IMPRESSION: Lungs grossly clear copyright 2010 [employer]- All Rights Reserved Lower Extremity MRI 09/28/19 00:00 IMPRESSION: No evidence of acute osteomyelitis. Assessment & Plan - Diagnosis (1) Diabetic foot ulcer Qualifiers: Diabetic foot ulcer location: toe Diabetes mellitus type: type 2 Laterality: right Non-pressure ulcer stage: limited to breakdown of skin Qualified Code(s): E11.621 - Type 2 diabetes mellitus with foot ulcer; L97.511 - Non-pressure chronic ulcer of other part of right foot limited to breakdown of skin Is this a current diagnosis for this admission?: Yes Plan: Patient is currently being treated by clindamycin orally. He received a dose of IV Zosyn and vancomycin in the emergency room. No evidence of osteomyelitis on MRI. Surgery was consulted. (2) Acute kidney injury superimposed on chronic kidney disease Is this a current diagnosis for this admission?: Yes Plan: This is most likely secondary to acute prerenal azotemia secondary to dehydration due to poor oral intake for at least 3 days due to GI complaints above. CT scan showed no hydronephrosis. Kidney function is currently improving just by IV fluid hydration. Patient has baseline chronic kidney disease. Currently he does not require any intervention including renal replacement therapy. Continue current management with IV fluid hydration. (3) Chronic kidney disease, stage IV (severe) Plan: Patient's baseline creatinine is around 2-2.5 with known proteinuria most likely secondary to diabetic nephropathy. Patient is recently followed up with her physician dental assistant instructor, Kj Ojeda. Once discharge patient should follow-up with him in our office. I will check his phosphorus, PTH and vitamin D. (4) Proteinuria Is this a current diagnosis for this admission?: Yes Plan: Last urine protein to creatinine ratio was 0.6. I will recheck it again. I will also check for serum protein electrophoresis. (5) Diabetes mellitus type 2 in nonobese Is this a current diagnosis for this admission?: Yes Plan: Patient's hemoglobin A1c is surprisingly only 5.3 without any medications at all. Patient reports that he is trying to control his sugar through his diet al one. (6) Hypertension Qualifiers: Is this a current diagnosis for this admission?: Yes Plan: Seems to be controlled. - Notes Notes: Thank you very much for this consultation. - Time Time Spent: 50 to 70 Minutes
[2019-09-29] MEDS: INSULIN GLARGINE,HUM.REC.ANLOG 1,000 UNIT/10 ML VIAL SUBCUT SCH (22:39)
[2019-09-30] MEDS: NORMAL SALINE 1000 ML 1,000 ML IV PRN (04:29)
[2019-09-30] MEDS: PANTOPRAZOLE SODIUM 40 MG TABLET.DR PO SCH ×2 (06:13→17:09)
[2019-09-30] MEDS: CLINDAMYCIN HCL 150 MG CAPSULE PO SCH ×3 (06:13→22:24)
[2019-09-30] MEDS: INSULIN LISPRO 100 UNIT/ML 3 ML VIAL SUBCUT SCH ×4 (07:18→22:23)
[2019-09-30 08:43] LABS: ANION GAP 10 (5-19); BLOOD UREA NITROGEN 27 mg/dL (7-20); CARBON DIOXIDE 24 mmol/L (22-30); CHLORIDE 105 mmol/L (98-107); GLUCOSE 86 mg/dL (75-110); PHOSPHORUS 2.8 mg/dL (2.5-4.5); POTASSIUM 4.1 mmol/L (3.6-5.0)
[2019-09-30] MEDS: ENOXAPARIN SODIUM INJ 30 MG/0.3 ML DISP.SYRIN SUBCUT SCH (10:23)
[2019-09-30] MEDS: DOCUSATE SODIUM 100 MG/10 ML UDC PO SCH ×2 (10:23→17:09)
[2019-09-30] MEDS: AMLODIPINE BESYLATE 5 MG TABLET PO SCH (10:24)
[2019-09-30] MEDS: CALCITRIOL 0.25 MCG CAPSULE PO SCH (10:33)
--- NOTE | 2019-09-30 16:27 | PDOC PROGRESS REPORT ---
Subjective Progress Note for:: 09/30/19 Subjective:: ANTHONY PAZ is a 64 year old homeless male past medical history of untreated diabetes, CKD, to ED by EMS after [place] be [place] public [place], with disorientation. Monitor patient was brought to ED was alert aggressive dietary and disorientation has resolved. Patient is stating that he has chronic ulcer in his foot which he has been hospitalized for in the past however he has not been taking care of it very well due to financial reasons. Patient denies having any fever, chills, nausea, vomiting, diarrhea, constipation or any urinary symptoms. 09/29/2019. No acute events overnight. Patient has been evaluated by surgery and no intervention planned as patient does not have any sign of infection or any osteomyelitis based on physical finding and MRI findings. Recommendation is for patient to follow-up at the wound care clinic. Patient is alert and returns well, no apparent distress, denies any fever, chills, nausea, vomiting, diarrhea, constipation or any urinary symptoms. Patient is stating that he does not have a place to go right now and he has looked into shelters at [facility] but not found any place, he is planning to rent a place with a female friend of her soon. 09/30/2019. No acute events overnight. Denies any fever, chills, nausea, vomiting, diarrhea, constipation or any urinary symptoms. Kidney function improving and is at his baseline. Surgery has signed off. Osteomyelitis has been ruled out. I will talk to Dr. Tong system technologist who confirmed to me that patient is seen by one of her colleagues and his kidney functions are back to baseline and as for as his kidney failure is concerned he can be discharged home to follow up with nephrology as out patient. Patient ready to be discharged home to follow-up at the wound care clinic and with system technologist however patient is appealing his discharge. Reason For Visit: DIABETIC FOOT, NAJMA Physical Exam Vital Signs: Temp Pulse Resp BP Pulse Ox 98.3 F 86 18 158/78 H 98 09/30/19 15:40 09/30/19 15:40 09/30/19 15:40 09/30/19 15:40 09/30/19 15:40 Intake & Output 09/29/19 09/30/19 10/01/19 06:59 06:59 06:59 Intake Total 1720 2060 Output Total 1000 1900 Balance 720 160 Weight 73.2 kg 73.8 kg General appearance: PRESENT: no acute distress, well-developed, well-nourished Head exam: PRESENT: atraumatic, normocephalic Respiratory exam: PRESENT: clear to auscultation simona. ABSENT: rales, rhonchi, wheezes Cardiovascular exam: PRESENT: RRR. ABSENT: diastolic murmur, rubs, systolic murmur GI/Abdominal exam: PRESENT: normal bowel sounds, soft. ABSENT: distended, guarding, mass, organolmegaly, rebound, tenderness Extremities exam: PRESENT: full ROM, other - Right for base of big toe callus with some dry necrotic tissue, no sign of infection.. ABSENT: calf tenderness, clubbing, pedal edema Neurological exam: PRESENT: alert, awake, oriented to person, oriented to place, oriented to time, oriented to situation, CN II-XII grossly intact. ABSENT: motor sensory deficit Results Laboratory Results: 09/29/19 05:23 09/30/19 07:53 09/30/19 09/30/19 07:53 07:53 Sodium 139.0 Potassium 4.1 Chloride 105 Carbon Dioxide 24 Anion Gap 10 BUN 27 H Creatinine 2.20 H Est GFR ( Amer) 36 L Glucose 86 Calcium 9.0 Phosphorus 2.8 PTH Intact 323.3 H 09/28/19 15:58 Blood Blood Culture (PCR) - Final Staphylococcus Species 09/27/19 09/27/19 21:50 21:50 Creatine Kinase 1466 H CK-MB (CK-2) 16.60 H Troponin I 0.033 Impressions: Abdomen/Pelvis CT 09/27/19 23:42 IMPRESSION: No acute intra-abdominal process identified TECHNICAL DOCUMENTATION: Quality ID # 436: Final reports with documentation of one or more dose reduction techniques (e.g., Automated exposure control, adjustment of the mA and/or kV according to patient size, use of iterative reconstruction technique) copyright 2011 [email or web address]- All Rights Reserved Foot X-Ray 09/27/19 23:43 IMPRESSION: Soft tissue air again visualized about the plantar aspect of the forefoot, likely correlating to a chronic ulceration. No definite radiographic evidence of osteomyelitis. If not contraindicated, MRI could be performed for further evaluation. Chest X-Ray 09/27/19 23:44 IMPRESSION: Lungs grossly clear copyright 2010 [email or web address]- All Rights Reserved Lower Extremity MRI 09/28/19 00:00 IMPRESSION: No evidence of acute osteomyelitis. Assessment and Plan - Diagnosis (1) Acute kidney injury superimposed on chronic kidney disease Is this a current diagnosis for this admission?: Yes Plan: Improving. Prerenal. Creatinine at baseline. Patient electrolytes are WNL, appears dry. Cautious volume resuscitation guided by volume status, strict in and out. Avoid nephrotoxic meds. Neurology consulted. Recommendations pending. As per my conversation with Dr. Tong system technologist patient has established nephrology care at their clinic with Dr. Kj Ojeda. (2) Diabetic foot ulcer Qualifiers: Diabetic foot ulcer location: toe Diabetes mellitus type: type 2 Laterality: right Non-pressure ulcer stage: limited to breakdown of skin Qualified Code(s): E11.621 - Type 2 diabetes mellitus with foot ulcer; L97.511 - Non-pressure chronic ulcer of other part of right foot limited to breakdown of skin Is this a current diagnosis for this admission?: Yes Plan: No osteomyelitis based on MRI and physical findings and surgery evaluation. No Intervention indicated at this point as per surgery. Patient is to follow-up at the wound care as outpatient. Right foot base of great toe skin compromise with necrotic tissue. Minimally tender. No discharge. Neurovascularly intact. Received 1 day of IV vancomycin and Zosyn. DC IV antibiotics as there is no sign of osteomyelitis or cellulitis. Continue p.o. clindamycin. Will DC to follow-up with wound care. (3) Diabetes mellitus type 2 in nonobese Is this a current diagnosis for this admission?: Yes Plan: History of untreated diabetes. Diet controlled. Hemoglobin A1c 5.3 Diabetic diet. Basal, sliding, prandial insulin. Hypoglycemia protocol. Accu- Chek. Diabetic education. Outpatient PCP follow-up. (4) Hypertension Qualifiers: Is this a current diagnosis for this admission?: Yes Plan: Euvolemic. Normotensive. History of untreated hypertension. Not a candidate for VON or ARB, or diuretics. Continue low-dose calcium channel blockers. Monitor vitals. Adjust meds as needed. Outpatient PCP follow-up. (5) Homelessness Is this a current diagnosis for this admission?: Yes Plan: transfer and line up worker consulted please refer to notes.
[2019-09-30] MEDS: INSULIN GLARGINE,HUM.REC.ANLOG 1,000 UNIT/10 ML VIAL SUBCUT SCH (22:23)
[2019-10-01 05:55] LABS: ANION GAP 5 (5-19); BLOOD UREA NITROGEN 23 mg/dL (7-20); CALCIUM 8.4 mg/dL (8.4-10.2); CARBON DIOXIDE 25 mmol/L (22-30); CHLORIDE 106 mmol/L (98-107); GLUCOSE 79 mg/dL (75-110); POTASSIUM 4.3 mmol/L (3.6-5.0)
[2019-10-01] MEDS: PANTOPRAZOLE SODIUM 40 MG TABLET.DR PO SCH ×2 (06:02→16:16)
[2019-10-01] MEDS: CLINDAMYCIN HCL 150 MG CAPSULE PO SCH ×3 (06:02→22:02)
[2019-10-01] MEDS: INSULIN LISPRO 100 UNIT/ML 3 ML VIAL SUBCUT SCH ×4 (07:26→21:50)
[2019-10-01] MEDS: ENOXAPARIN SODIUM INJ 30 MG/0.3 ML DISP.SYRIN SUBCUT SCH (08:59)
[2019-10-01] MEDS: DOCUSATE SODIUM 100 MG/10 ML UDC PO SCH ×2 (08:59→17:55)
[2019-10-01] MEDS: CALCITRIOL 0.25 MCG CAPSULE PO SCH (09:04)
[2019-10-01] MEDS: AMLODIPINE BESYLATE 5 MG TABLET PO SCH (09:04)
--- NOTE | 2019-10-01 11:42 | PDOC PROGRESS REPORT ---
Subjective Progress Note for:: 10/01/19 Subjective:: ANTHONY PAZ is a 64 year old homeless male past medical history of untreated diabetes, CKD, to ED by EMS [place], with disorientation. Monitor patient was brought to ED was alert aggressive dietary and disorientation has resolved. Patient is stating that he has chronic ulcer in his foot which he has been hospitalized for in the past however he has not been taking care of it very well due to financial reasons. Patient denies having any fever, chills, nausea, vomiting, diarrhea, constipation or any urinary symptoms. 09/29/2019. No acute events overnight. Patient has been evaluated by surgery and no intervention planned as patient does not have any sign of infection or any osteomyelitis based on physical finding and MRI findings. Recommendation is for patient to follow-up at the wound care clinic. Patient is alert and returns well, no apparent distress, denies any fever, chills, nausea, vomiting, diarrhea, constipation or any urinary symptoms. Patient is stating that he does not have a place to go right now and he has looked into shelters at [facility] but not found any place, he is planning to rent a place with a female friend of her soon. 09/30/2019. No acute events overnight. Denies any fever, chills, nausea, vomiting, diarrhea, constipation or any urinary symptoms. Kidney function improving and is at his baseline. Surgery has signed off. Osteomyelitis has been ruled out. I will talk to Dr. Tong game advisor who confirmed to me that patient is seen by one of her colleagues and his kidney functions are back to baseline and as for as his kidney failure is concerned he can be discharged home to follow up with nephrology as out patient. Patient ready to be discharged home to follow-up at the wound care clinic and with game advisor however patient is appealing his discharge. 10/01/2019. No acute events overnight. Patient currently resting in bed no apparent distress. Stating that he is feeling much better than yesterday, denies any fever, chills, nausea, vomiting, diarrhea, constipation or any urinary symptoms. Patient is still appealing his discharge, stating that he might be able to leave Thursday. Reason For Visit: DIABETIC FOOT, NAJMA Physical Exam Vital Signs: Temp Pulse Resp BP Pulse Ox 98.1 F 80 18 147/80 H 98 09/30/19 23:00 09/30/19 23:00 09/30/19 23:00 09/30/19 23:00 09/30/19 23:00 Intake & Output 09/30/19 10/01/19 10/02/19 06:59 06:59 06:59 Intake Total 2060 720 Output Total 1900 850 Balance 160 -130 Weight 73.8 kg 73.5 kg General appearance: PRESENT: no acute distress, well-developed, well-nourished Head exam: PRESENT: atraumatic, normocephalic Respiratory exam: PRESENT: clear to auscultation simona. ABSENT: rales, rhonchi, wheezes Cardiovascular exam: PRESENT: RRR. ABSENT: diastolic murmur, rubs, systolic mu rmur GI/Abdominal exam: PRESENT: normal bowel sounds, soft. ABSENT: distended, guarding, mass, organolmegaly, rebound, tenderness Extremities exam: PRESENT: full ROM, other. ABSENT: calf tenderness, clubbing, pedal edema Neurological exam: PRESENT: alert, awake, oriented to person, oriented to place, oriented to time, oriented to situation, CN II-XII grossly intact. ABSENT: motor sensory deficit Results Laboratory Results: 09/29/19 05:23 10/01/19 05:04 10/01/19 05:04 Sodium 136.2 L Potassium 4.3 Chloride 106 Carbon Dioxide 25 Anion Gap 5 BUN 23 H Creatinine 1.98 H Est GFR ( Amer) 41 L Glucose 79 Calcium 8.4 09/28/19 15:58 Blood Blood Culture (PCR) - Final Staphylococcus Species 09/27/19 09/27/19 21:50 21:50 Creatine Kinase 1466 H CK-MB (CK-2) 16.60 H Troponin I 0.033 Impressions: Abdomen/Pelvis CT 09/27/19 23:42 IMPRESSION: No acute intra-abdominal process identified TECHNICAL DOCUMENTATION: Quality ID # 436: Final reports with documentation of one or more dose reduction techniques (e.g., Automated exposure control, adjustment of the mA and/or kV according to patient size, use of iterative reconstruction technique) copyright 2011 [employer]- All Rights Reserved Foot X-Ray 09/27/19 23:43 IMPRESSION: Soft tissue air again visualized about the plantar aspect of the forefoot, likely correlating to a chronic ulceration. No definite radiographic evidence of osteomyelitis. If not contraindicated, MRI could be performed for further evaluation. Chest X-Ray 09/27/19 23:44 IMPRESSION: Lungs grossly clear copyright 2010 [employer]- All Rights Reserved Lower Extremity MRI 09/28/19 00:00 IMPRESSION: No evidence of acute osteomyelitis. Assessment and Plan - Diagnosis (1) Acute kidney injury superimposed on chronic kidney disease Is this a current diagnosis for this admission?: Yes Plan: Moderate improvement. Creatinine 1.98 today. Cautious volume resuscitation guided by volume status, strict in and out. Avoid nephrotoxic meds. Neurology consulted. Recommendations noted. As per my conversation with Dr. Tong game advisor patient has established nephrology care at their clinic with Dr. Kj Ojeda. (2) Diabetic foot ulcer Qualifiers: Diabetic foot ulcer location: toe Diabetes mellitus type: type 2 Laterality: right Non-pressure ulcer stage: limited to breakdown of skin Qualified Code(s): E11.621 - Type 2 diabetes mellitus with foot ulcer; L97.511 - Non-pressure chronic ulcer of other part of right foot limited to breakdown of skin Is this a current diagnosis for this admission?: Yes Plan: No osteomyelitis based on MRI and physical findings and surgery evaluation. No Intervention indicated at this point as per surgery. Patient is to follow-up at the wound care as outpatient. Right foot base of great toe skin compromise with necrotic tissue. Minimally tender. No discharge. Neurovascularly intact. Received 1 day of IV vancomycin and Zosyn. DC IV antibiotics as there is no sign of osteomyelitis or cellulitis. Continue p.o. clindamycin. Patient has outpatient wound care appointment already set up. (3) Diabetes mellitus type 2 in nonobese Is this a current diagnosis for this admission?: Yes Plan: History of untreated diabetes. Diet controlled. Hemoglobin A1c 5.3 Diabetic diet. Basal, sliding, prandial insulin. Hypoglycemia protocol. Accu- Chek. Diabetic education. Outpatient PCP follow-up. (4) Hypertension Qualifiers: Is this a current diagnosis for this admission?: Yes Plan: Euvolemic. Normotensive. History of untreated hypertension. Not a candidate for VON or ARB, or diuretics. Continue low-dose calcium channel blockers. Monitor vitals. Adjust meds as needed. Outpatient PCP follow-up. (5) Homelessness Is this a current diagnosis for this admission?: Yes Plan: rigging worker consulted.
[2019-10-01] MEDS: INSULIN GLARGINE,HUM.REC.ANLOG 1,000 UNIT/10 ML VIAL SUBCUT SCH (22:03)
[2019-10-02] MEDS: NORMAL SALINE 1000 ML 1,000 ML IV PRN (04:18)
[2019-10-02] MEDS: PANTOPRAZOLE SODIUM 40 MG TABLET.DR PO SCH ×2 (05:13→17:04)
[2019-10-02] MEDS: CLINDAMYCIN HCL 150 MG CAPSULE PO SCH ×3 (05:14→21:57)
[2019-10-02 05:55] LABS: ANION GAP 6 (5-19); BLOOD UREA NITROGEN 26 mg/dL (7-20); CALCIUM 8.5 mg/dL (8.4-10.2); CARBON DIOXIDE 23 mmol/L (22-30); CHLORIDE 106 mmol/L (98-107); GLUCOSE 92 mg/dL (75-110); POTASSIUM 4.3 mmol/L (3.6-5.0)
[2019-10-02] MEDS: INSULIN LISPRO 100 UNIT/ML 3 ML VIAL SUBCUT SCH ×4 (07:31→21:55)
[2019-10-02] MEDS: AMLODIPINE BESYLATE 5 MG TABLET PO SCH (09:30)
[2019-10-02] MEDS: CALCITRIOL 0.25 MCG CAPSULE PO SCH (09:30)
[2019-10-02] MEDS: DOCUSATE SODIUM 100 MG/10 ML UDC PO SCH ×2 (09:30→17:05)
[2019-10-02] MEDS: ENOXAPARIN SODIUM INJ 30 MG/0.3 ML DISP.SYRIN SUBCUT SCH (09:30)
--- NOTE | 2019-10-02 10:51 | PDOC PROGRESS REPORT ---
Subjective Progress Note for:: 10/02/19 Subjective:: ANTHONY PAZ is a 64 year old homeless male past medical history of untreated diabetes, CKD, to ED by EMS after [place] be [place] public park, with disorientation. Monitor patient was brought to ED was alert aggressive dietary and disorientation has resolved. Patient is stating that he has chronic ulcer in his foot which he has been hospitalized for in the past however he has not been taking care of it very well due to financial reasons. Patient denies having any fever, chills, nausea, vomiting, diarrhea, constipation or any urinary symptoms. 09/29/2019. No acute events overnight. Patient has been evaluated by surgery and no intervention planned as patient does not have any sign of infection or any osteomyelitis based on physical finding and MRI findings. Recommendation is for patient to follow-up at the wound care clinic. Patient is alert and returns well, no apparent distress, denies any fever, chills, nausea, vomiting, diarrhea, constipation or any urinary symptoms. Patient is stating that he does not have a place to go right now and he has looked into shelters at [facility] but not found any place, he is planning to rent a place with a female friend of her soon. 09/30/2019. No acute events overnight. Denies any fever, chills, nausea, vomiting, diarrhea, constipation or any urinary symptoms. Kidney function improving and is at his baseline. Surgery has signed off. Osteomyelitis has been ruled out. I will talk to Dr. Tong cellophane bath mixer who confirmed to me that patient is seen by one of her colleagues and his kidney functions are back to baseline and as for as his kidney failure is concerned he can be discharged home to follow up with nephrology as out patient. Patient ready to be discharged home to follow-up at the wound care clinic and with cellophane bath mixer however patient is appealing his discharge. 10/01/2019. No acute events overnight. Patient currently resting in bed no apparent distress. Stating that he is feeling much better than yesterday, denies any fever, chills, nausea, vomiting, diarrhea, constipation or any urinary symptoms. Patient is still appealing his discharge, stating that he might be able to leave Thursday. 10/02/2019. No acute events overnight. P.o. tolerant. Ambulatory. He denies any fever, chills, nausea, vomiting, diarrhea or constipation, p.o. tolerant and ambulatory. Patient is appealing his discharge however stating that he might be able to leave tomorrow if his accommodation is sorted out. Reason For Visit: DIABETIC FOOT, NAJMA Physical Exam Vital Signs: Temp Pulse Resp BP Pulse Ox 98.7 F 77 17 157/87 H 96 10/02/19 07:33 10/02/19 08:46 10/02/19 08:46 10/02/19 07:33 10/02/19 08:46 Intake & Output 10/01/19 10/02/19 10/03/19 06:59 06:59 06:59 Intake Total 1720 1521 Output Total 850 1150 Balance 870 371 Weight 73.5 kg 73.6 kg General appearance: PRESENT: no acute distress, well-developed, well-nourished Head exam: PRESENT: atraumatic, normocephalic Respiratory exam: PRESENT: clear to auscultation simona. ABSENT: rales, rhonchi, wheezes Cardiovascular exam: PRESENT: RRR. ABSENT: diastolic murmur, rubs, systolic mu rmur GI/Abdominal exam: PRESENT: normal bowel sounds, soft. ABSENT: distended, guarding, mass, organolmegaly, rebound, tenderness Neurological exam: PRESENT: alert, awake, oriented to person, oriented to place, oriented to time, oriented to situation, CN II-XII grossly intact. ABSENT: motor sensory deficit Skin exam: PRESENT: dry, intact, warm, other - Right foot. Base of first metatarsal callus and necrotic tissue, no sign of infection. Neurovascularly intact.. ABSENT: cyanosis, rash Results Laboratory Results: 09/29/19 05:23 10/02/19 04:53 10/02/19 04:53 Sodium 135.0 L Potassium 4.3 Chloride 106 Carbon Dioxide 23 Anion Gap 6 BUN 26 H Creatinine 2.01 H Est GFR ( Amer) 40 L Glucose 92 Calcium 8.5 09/28/19 15:58 Blood Blood Culture (PCR) - Final Staphylococcus Species 09/27/19 09/27/19 21:50 21:50 Creatine Kinase 1466 H CK-MB (CK-2) 16.60 H Troponin I 0.033 Impressions: Abdomen/Pelvis CT 09/27/19 23:42 IMPRESSION: No acute intra-abdominal process identified TECHNICAL DOCUMENTATION: Quality ID # 436: Final reports with documentation of one or more dose reduction techniques (e.g., Automated exposure control, adjustment of the mA and/or kV according to patient size, use of iterative reconstruction technique) copyright 2010 [employer]- All Rights Reserved Foot X-Ray 09/27/19 23:43 IMPRESSION: Soft tissue air again visualized about the plantar aspect of the forefoot, likely correlating to a chronic ulceration. No definite radiographic evidence of osteomyelitis. If not contraindicated, MRI could be performed for further evaluation. Chest X-Ray 09/27/19 23:44 IMPRESSION: Lungs grossly clear copyright 2010 [employer]- All Rights Reserved Lower Extremity MRI 09/28/19 00:00 IMPRESSION: No evidence of acute osteomyelitis. Assessment and Plan - Diagnosis (1) Acute kidney injury superimposed on chronic kidney disease Is this a current diagnosis for this admission?: Yes Plan: Moderate improvement. Creatinine 1.98 today. Cautious volume resuscitation guided by volume status, strict in and out. Avoid nephrotoxic meds. Neurology consulted. Recommendations noted. As per my conversation with Dr. Tong cellophane bath mixer patient has established nephrology care at their clinic with Dr. Kj Ojeda. (2) Diabetic foot ulcer Qualifiers: Diabetic foot ulcer location: toe Diabetes mellitus type: type 2 Laterality: right Non-pressure ulcer stage: limited to breakdown of skin Qualified Code(s): E11.621 - Type 2 diabetes mellitus with foot ulcer; L97.511 - Non-pressure chronic ulcer of other part of right foot limited to breakdown of skin Is this a current diagnosis for this admission?: Yes Plan: No osteomyelitis based on MRI and physical findings and surgery evaluation. No Intervention indicated at this point as per surgery. Patient is to follow-up at the wound care as outpatient. Right foot base of great toe skin compromise with necrotic tissue. Minimally tender. No discharge. Neurovascularly intact. Received 1 day of IV vancomycin and Zosyn. DC IV antibiotics as there is no sign of osteomyelitis or cellulitis. Continue p.o. clindamycin. Patient has outpatient wound care appointment already set up. (3) Diabetes mellitus type 2 in nonobese Is this a current diagnosis for this admission?: Yes Plan: History of untreated diabetes. Diet controlled. Hemoglobin A1c 5.3 Diabetic diet. Basal, sliding, prandial insulin. Hypoglycemia protocol. Accu- Chek. Diabetic education. Outpatient PCP follow-up. (4) Hypertension Qualifiers: Is this a current diagnosis for this admission?: Yes Plan: Euvolemic. Normotensive. History of untreated hypertension. Not a candidate for VON or ARB, or diuretics. Continue low-dose calcium channel blockers. Monitor vitals. Adjust meds as needed. Outpatient PCP follow-up. (5) Homelessness Is this a current diagnosis for this admission?: Yes Plan: making line worker consulted. (6) Gram-positive bacteremia Is this a current diagnosis for this admission?: Yes Plan: Likely contamination, blood culture from admission 1/2 gram-positive cocci in clusters pending sensitivity. Initially was placed on vancomycin and Zosyn for possible osteomyelitis. Currently on clindamycin p.o Follow-up sensitivity.
[2019-10-02] MEDS: AMLODIPINE BESYLATE 10 MG TABLET PO SCH (12:31)
[2019-10-02] MEDS: INSULIN GLARGINE,HUM.REC.ANLOG 1,000 UNIT/10 ML VIAL SUBCUT SCH (21:57)
[2019-10-03] MEDS: PANTOPRAZOLE SODIUM 40 MG TABLET.DR PO SCH ×2 (05:11→17:26)
[2019-10-03] MEDS: CLINDAMYCIN HCL 150 MG CAPSULE PO SCH ×3 (05:11→22:07)
[2019-10-03] MEDS: INSULIN LISPRO 100 UNIT/ML 3 ML VIAL SUBCUT SCH ×4 (07:44→22:04)
[2019-10-03] MEDS: AMLODIPINE BESYLATE 10 MG TABLET PO SCH (10:27)
[2019-10-03] MEDS: CALCITRIOL 0.25 MCG CAPSULE PO SCH (10:27)
[2019-10-03] MEDS: ENOXAPARIN SODIUM INJ 30 MG/0.3 ML DISP.SYRIN SUBCUT SCH (10:28)
[2019-10-03] MEDS: DOCUSATE SODIUM 100 MG/10 ML UDC PO SCH (10:28)
[2019-10-03] MEDS: NORMAL SALINE 1000 ML 1,000 ML IV PRN ×2 (10:28→19:33)
--- NOTE | 2019-10-03 11:03 | PDOC PROGRESS REPORT ---
Subjective Progress Note for:: 10/03/19 Subjective:: ANTHONY PAZ is a 64 year old homeless male past medical history of untreated diabetes, CKD, to ED by EMS [place], with disorientation. Monitor patient was brought to ED was alert aggressive dietary and disorientation has resolved. Patient is stating that he has chronic ulcer in his foot which he has been hospitalized for in the past however he has not been taking care of it very well due to financial reasons. Patient denies having any fever, chills, nausea, vomiting, diarrhea, constipation or any urinary symptoms. 09/29/2019. No acute events overnight. Patient has been evaluated by surgery and no intervention planned as patient does not have any sign of infection or any osteomyelitis based on physical finding and MRI findings. Recommendation is for patient to follow-up at the wound care clinic. Patient is alert and returns well, no apparent distress, denies any fever, chills, nausea, vomiting, diarrhea, constipation or any urinary symptoms. Patient is stating that he does not have a place to go right now and he has looked into shelters at [facility] but not found any place, he is planning to rent a place with a female friend of her soon. 09/30/2019. No acute events overnight. Denies any fever, chills, nausea, vomiting, diarrhea, constipation or any urinary symptoms. Kidney function improving and is at his baseline. Surgery has signed off. Osteomyelitis has been ruled out. I will talk to Dr. Tong physical instructor who confirmed to me that patient is seen by one of her colleagues and his kidney functions are back to baseline and as for as his kidney failure is concerned he can be discharged home to follow up with nephrology as out patient. Patient ready to be discharged home to follow-up at the wound care clinic and with physical instructor however patient is appealing his discharge. 10/01/2019. No acute events overnight. Patient currently resting in bed no apparent distress. Stating that he is feeling much better than yesterday, denies any fever, chills, nausea, vomiting, diarrhea, constipation or any urinary symptoms. Patient is still appealing his discharge, stating that he might be able to leave Thursday. 10/02/2019. No acute events overnight. P.o. tolerant. Ambulatory. He denies any fever, chills, nausea, vomiting, diarrhea or constipation, p.o. tolerant and ambulatory. Patient is appealing his discharge however stating that he might be able to leave tomorrow if his accommodation is sorted out. 10/02/2008. No acute events overnight. Denies any fever, chills, nausea, vomiting, diarrhea, constipation or any urinary symptoms. Patient is stating that he might be able to leave tomorrow as his accommodation is being taken care of. Reason For Visit: DIABETIC FOOT, NAJMA Physical Exam Vital Signs: Temp Pulse Resp BP Pulse Ox 98.3 F 76 19 128/73 H 98 10/03/19 07:20 10/03/19 07:20 10/03/19 07:20 10/03/19 07:20 10/03/19 07:20 Intake & Output 10/02/19 10/03/19 10/04/19 06:59 06:59 06:59 Intake Total 1521 2610 Output Total 1150 1250 Balance 371 1360 Weight 73.6 kg 73.6 kg General appearance: PRESENT: no acute distress, well-developed, well-nourished Head exam: PRESENT: atraumatic, normocephalic Respiratory exam: PRESENT: clear to auscultation simona. ABSENT: rales, rhonchi, wheezes Cardiovascular exam: PRESENT: RRR. ABSENT: diastolic murmur, rubs, systolic murmur GI/Abdominal exam: PRESENT: normal bowel sounds, soft. ABSENT: distended, guarding, mass, organolmegaly, rebound, tenderness Neurological exam: PRESENT: alert, awake, oriented to person, oriented to place, oriented to time, oriented to situation, CN II-XII grossly intact. ABSENT: motor sensory deficit Skin exam: PRESENT: other - Right foot fifth metatarsal base callus. No sign of infection. Results Laboratory Results: 09/29/19 05:23 10/02/19 04:53 09/28/19 15:58 Blood Blood Culture (PCR) - Final Staphylococcus Species 09/28/19 15:58 Blood Blood Culture - Final Staphylococcus Hominis 09/27/19 09/27/19 21:50 21:50 Creatine Kinase 1466 H CK-MB (CK-2) 16.60 H Troponin I 0.033 Impressions: Abdomen/Pelvis CT 09/27/19 23:42 IMPRESSION: No acute intra-abdominal process identified TECHNICAL DOCUMENTATION: Quality ID # 436: Final reports with documentation of one or more dose reduction techniques (e.g., Automated exposure control, adjustment of the mA and/or kV according to patient size, use of iterative reconstruction technique) copyright 2010 [employer]- All Rights Reserved Foot X-Ray 09/27/19 23:43 IMPRESSION: Soft tissue air again visualized about the plantar aspect of the forefoot, likely correlating to a chronic ulceration. No definite radiographic evidence of osteomyelitis. If not contraindicated, MRI could be performed for further evaluation. Chest X-Ray 09/27/19 23:44 IMPRESSION: Lungs grossly clear copyright 2010 [employer]- All Rights Reserved Lower Extremity MRI 09/28/19 00:00 IMPRESSION: No evidence of acute osteomyelitis. Assessment and Plan - Diagnosis (1) Acute kidney injury superimposed on chronic kidney disease Is this a current diagnosis for this admission?: Yes Plan: Moderate improvement. Creatinine 1.98 today. Cautious volume resuscitation guided by volume status, strict in and out. Avoid nephrotoxic meds. Neurology consulted. Recommendations noted. As per my conversation with Dr. Tong physical instructor patient has established nephrology care at their clinic with Dr. Kj Ojeda. (2) Diabetic foot ulcer Qualifiers: Diabetic foot ulcer location: toe Diabetes mellitus type: type 2 Laterality: right Non-pressure ulcer stage: limited to breakdown of skin Qualified Code(s): E11.621 - Type 2 diabetes mellitus with foot ulcer; L97.511 - Non-pressure chronic ulcer of other part of right foot limited to breakdown of skin Is this a current diagnosis for this admission?: Yes Plan: No osteomyelitis based on MRI and physical findings and surgery evaluation. No Intervention indicated at this point as per surgery. Patient is to follow-up at the wound care as outpatient. Right foot base of great toe skin compromise with necrotic tissue. Minimally tender. No discharge. Neurovascularly intact. Received 1 day of IV vancomycin and Zosyn. DC IV antibiotics as there is no sign of osteomyelitis or cellulitis. Continue p.o. clindamycin. Patient has outpatient wound care appointment already set up. (3) Diabetes mellitus type 2 in nonobese Is this a current diagnosis for this admission?: Yes Plan: History of untreated diabetes. Diet controlled. Hemoglobin A1c 5.3 Diabetic diet. Basal, sliding, prandial insulin. Hypoglycemia protocol. Accu- Chek. Diabetic education. Outpatient PCP follow-up. (4) Hypertension Qualifiers: Is this a current diagnosis for this admission?: Yes Plan: Euvolemic. Normotensive. History of untreated hypertension. Not a candidate for VON or ARB, or diuretics. Continue low-dose calcium channel blockers. Monitor vitals. Adjust meds as needed. Outpatient PCP follow-up. (5) Homelessness Is this a current diagnosis for this admission?: Yes Plan: [employer] line worker consulted. (6) Gram-positive bacteremia Is this a current diagnosis for this admission?: Yes Plan: Likely contamination, blood culture from admission 1/2 gram-positive cocci in clusters pending sensitivity. Initially was placed on vancomycin and Zosyn for possible osteomyelitis. Currently on clindamycin p.o Follow-up sensitivity.
[2019-10-03] MEDS: DOCUSATE SODIUM 100 MG CAPSULE PO SCH (17:26)
[2019-10-03] MEDS: INSULIN GLARGINE,HUM.REC.ANLOG 1,000 UNIT/10 ML VIAL SUBCUT SCH (22:07)
[2019-10-04] MEDS: PANTOPRAZOLE SODIUM 40 MG TABLET.DR PO SCH (05:05)
[2019-10-04] MEDS: CLINDAMYCIN HCL 150 MG CAPSULE PO SCH (05:05)
[2019-10-04 05:38] LABS: ANION GAP 7 (5-19); BLOOD UREA NITROGEN 35 mg/dL (7-20); CALCIUM 8.5 mg/dL (8.4-10.2); CARBON DIOXIDE 23 mmol/L (22-30); CHLORIDE 108 mmol/L (98-107); GLUCOSE 114 mg/dL (75-110); POTASSIUM 4.4 mmol/L (3.6-5.0)
[2019-10-04] MEDS: INSULIN LISPRO 100 UNIT/ML 3 ML VIAL SUBCUT SCH (08:01)
[2019-10-04 09:01] VITALS: BP 150/78
[2019-10-04] MEDS: ENOXAPARIN SODIUM INJ 30 MG/0.3 ML DISP.SYRIN SUBCUT SCH (09:02)
[2019-10-04] MEDS: DOCUSATE SODIUM 100 MG CAPSULE PO SCH (09:02)
[2019-10-04] MEDS: AMLODIPINE BESYLATE 10 MG TABLET PO SCH (09:03)
[2019-10-04] MEDS: CALCITRIOL 0.25 MCG CAPSULE PO SCH (09:04)
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
[2019-10-04 16:37] LABS: A/G RATIO 0.9 (0.7-1.7); ALBUMIN 2 3.1 g/dL (2.9-4.4); ALPHA-2-GLOBULIN 2 0.8 g/dL (0.4-1.0); BETA GLOBULINS 0.9 g/dL (0.7-1.3); GAMMA GLOBULIN 1.4 g/dL (0.4-1.8); GLOBULIN TOTAL 3.3 g/dL (2.2-3.9); MONOCLONAL SPIKE Not Observed g/dL (Not Observ); PROTEIN TOTAL SERUM 6.4 g/dL (6.0-8.5)
== END 2019-10-04 09:30 | disposition home or self-care (01) | DRG 684 ==
LOC: ER 21:16 → EH 09-28 08:10 → 4S 09-28 15:04
PROVIDERS: ADMIT Internal Medicine; ATTEND Internal Medicine
DX: N17.9 Acute kidney failure, unspecified (principal); E11.621 Type 2 diabetes mellitus with foot ulcer; L97.511 Non-pressure chronic ulcer of other part of right foot limited to breakdown of skin; I12.9 Hypertensive chronic kidney disease with stage 1 through stage 4 chronic kidney disease, or unspecified chronic kidney disease; E11.22 Type 2 diabetes mellitus with diabetic chronic kidney disease; N18.4 Chronic kidney disease, stage 4 (severe); R80.9 Proteinuria, unspecified; I73.9 Peripheral vascular disease, unspecified; Z59.0 Homelessness; Z59.9 Problem related to housing and economic circumstances, unspecified; Z89.422 Acquired absence of other left toe(s); Z89.421 Acquired absence of other right toe(s); Z91.19 Patient's noncompliance with other medical treatment and regimen
CPT/HCPCS: 36415; 71045; 74176; 80048; 80053; 80307; 81001; 82306; 82550; 82553; 82803; 82962; 83036; 83690; 83735; 83970; 84100; 84165; 84484; 85025; 85652; 86140; 87040; 87077; 87150; 87186; 93005; 93010; 96361; 96374; 96375; 99285; C9113; J0360; J1650; J1815; J2405; J2543; J2765; J3370; J3490; J7030; J7060

== ENCOUNTER 2020-01-28 13:08 | Emergency (ER) | payer MEDICARE, OTHER ==
[2020-01-28 13:49] LABS: ALBUMIN 2.9 g/dL (3.5-5.0); ALKALINE PHOSPHATASE 100 U/L (38-126); ANION GAP 9 (5-19); ASPARTATE AMINO TRANSFERASE 44 U/L (17-59); BILIRUBIN,TOTAL 0.2 mg/dL (0.2-1.3); BLOOD UREA NITROGEN 23 mg/dL (7-20); CALCIUM 7.9 mg/dL (8.4-10.2); CARBON DIOXIDE 21 mmol/L (22-30); CHLORIDE 105 mmol/L (98-107); CREATINE KINASE 116 U/L (55-170); GLUCOSE 84 mg/dL (75-110); POTASSIUM 4.8 mmol/L (3.6-5.0); TOTAL PROTEIN 6.7 g/dL (6.3-8.2)
[2020-01-28 14:01] LABS: TROPONIN I < 0.012 ng/mL
[2020-01-28 14:06] LABS: ABSOLUTE LYMPHOCYTES (AUTO) 0.8 10^3/uL (0.5-4.7); ABSOLUTE MONOCYTES (AUTO) 0.3 10^3/uL (0.1-1.4); ABSOLUTE NEUT (AUTO) 2.6 10^3/uL (1.7-8.2); BASOPHILS % (AUTO) 0.7 % (0-2); EOSINOPHILS % (AUTO) 0.5 % (0-6); HEMOGLOBIN 10.5 g/dL (13.5-17.0); LYMPHOCYTES % (AUTO) 20.6 % (13-45); MEAN CORPUSCULAR HGB CONC 33.8 g/dL (32.0-36.0); MEAN CORPUSCULAR VOLUME 83 fl (80-97); MONOCYTES % (AUTO) 7.4 % (3-13); PLATELET COUNT 256 10^3/uL (150-450); RED BLOOD COUNT 3.73 10^6/uL (4.35-5.55); SEGMENTED NEUTROPHILS % (AUTO) 70.8 % (42-78); TOTAL CELLS COUNTED % (AUTO) 100 %; WHITE BLOOD COUNT 3.7 10^3/uL (4.0-10.5)
[2020-01-28 14:16] LABS: APPEARANCE,URINE CLEAR; BILIRUBIN,URINE NEGATIVE (NEGATIVE); COLOR,URINE YELLOW; GLUCOSE, URINE 50 mg/dL (NEGATIVE); KETONES,URINE NEGATIVE (NEGATIVE); LEUKOCYTE ESTERASE,URINE NEGATIVE (NEGATIVE); NITRITE,URINE NEGATIVE (NEGATIVE); PROTEIN,URINE 100 mg/dL (NEGATIVE); URINE SPECIFIC GRAVITY 1.008; UROBILINOGEN,URINE NEGATIVE mg/dL (<2.0)
[2020-01-28] MEDS ORDERED: ACETAMINOPHEN 325 MG TABLET PO ONE (16:57)
[2020-01-28] MEDS ORDERED: NORMAL SALINE 500 ML IV ONE (17:02)
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
[2020-01-28 17:29] LABS: URINE AMPHETAMINES SCREEN NEGATIVE; URINE BARBITURATES SCREEN NEGATIVE; URINE BENZODIAZEPINES SCREEN NEGATIVE; URINE COCAINE SCREEN NEGATIVE; URINE MARIJUANA (THC) SCREEN NEGATIVE; URINE METHADONE SCREEN NEGATIVE; URINE PHENCYCLIDINE SCREEN NEGATIVE
--- NOTE | 2020-01-28 17:38 | RADIOLOGY REPORT (SQ) ---
EXAM DESCRIPTION: FOOT RIGHT COMPLETE IMAGES COMPLETED DATE/TIME: 01/28/2020 4:11 pm REASON FOR STUDY: ulceration, 1st MTP COMPARISON: 09/28/2019 NUMBER OF VIEWS: Three views. TECHNIQUE: AP, lateral and oblique radiographic images acquired of the right foot. LIMITATIONS: None. FINDINGS: MINERALIZATION: Osteopenia. BONES: Amputations of the phalanges of the 3rd and 4th digits and proximal metatarsal 5th digit, stab le from prior. Moderate lateral deviation of the phalanges at the metatarsophalangeal joint spaces o f the 1st and 2nd digits. No acute fracture or cortical disruption. No lytic or blastic bone lesion . Moderate plantar calcaneal spur. Small marginal osteophytes at the midfoot. JOINTS: No effusions. SOFT TISSUES: Ulceration at the plantar surface 1st digit metatarsal, somewhat improved since previou s examination. Bipartite appearance of the sesamoid bone is stable from previous. Soft tissue swell ing at the forefoot. OTHER: No other significant finding. IMPRESSION: 1. Plantar surface ulceration and subcutaneous soft tissue swelling at the forefoot. No radiographic evidence of osteomyelitis. 2. Chronic amputations of the 3rd-5th digits, stable. 3. Moderate osteopenia. TECHNICAL DOCUMENTATION: JOB ID: [id number] 2010 [employer]- All Rights Reserved Reading location - IP/workstation name: [email or web address]
--- NOTE | 2020-01-28 17:39 | RADIOLOGY REPORT (SQ) ---
EXAM DESCRIPTION: HIP RIGHT AP/LATERAL IMAGES COMPLETED DATE/TIME: 01/28/2020 4:11 pm REASON FOR STUDY: pain, fall COMPARISON: None. NUMBER OF VIEWS: Two views. TECHNIQUE: AP pelvis and additional frog-leg view of the right hip. LIMITATIONS: None. FINDINGS: MINERALIZATION: Normal. RIGHT HIP: No fracture or dislocation. No worrisome bone lesions. LEFT HIP: No fracture or dislocation. No worrisome bone lesions. PUBIS AND ISCHIUM: No fracture. PELVIS: No fracture. SACRUM: No fracture or dislocation. No worrisome bone lesions. LOWER LUMBAR SPINE: No fracture or dislocation. No worrisome bone lesions. No significant disc disea se. SOFT TISSUES: Calcified pelvic phleboliths. OTHER: No other significant finding. IMPRESSION: No acute fracture or dislocation of the right hip. TECHNICAL DOCUMENTATION: JOB ID: [id number] [employer]- All Rights Reserved Reading location - IP/workstation name: [email or web address]
[2020-01-28 20:12] VITALS: BP 159/87
--- NOTE | 2020-01-28 20:52 | EKG REPORT ---
SEVERITY:- NORMAL ECG - SINUS RHYTHM : Confirmed by: Aldo Harmon 28-Jan-2020 20:52:02
== END 2020-01-28 19:31 | disposition home or self-care (01) ==
LOC: ER 13:08
DX: R53.1 Weakness (principal); E11.621 Type 2 diabetes mellitus with foot ulcer; L97.519 Non-pressure chronic ulcer of other part of right foot with unspecified severity; E11.51 Type 2 diabetes mellitus with diabetic peripheral angiopathy without gangrene; I12.9 Hypertensive chronic kidney disease with stage 1 through stage 4 chronic kidney disease, or unspecified chronic kidney disease; M25.551 Pain in right hip; W19.XXXA Unspecified fall, initial encounter; E11.22 Type 2 diabetes mellitus with diabetic chronic kidney disease; N18.9 Chronic kidney disease, unspecified; M85.871 Other specified disorders of bone density and structure, right ankle and foot; R11.2 Nausea with vomiting, unspecified; F17.200 Nicotine dependence, unspecified, uncomplicated; Z89.421 Acquired absence of other right toe(s); Z89.422 Acquired absence of other left toe(s)
CPT/HCPCS: 93005; 99285; 96360; 36415; 82553; 82550; 85025; 80053; 81001; 84484; 80307; 73630; 73502; 93010; A9270; J7040

== ENCOUNTER 2020-01-29 12:27 | Emergency (ER) | payer MEDICARE ==
[2020-01-29 13:03] LABS: ABSOLUTE LYMPHOCYTES (AUTO) 0.6 10^3/uL (0.5-4.7); ABSOLUTE MONOCYTES (AUTO) 0.3 10^3/uL (0.1-1.4); BASOPHILS % (AUTO) 0.7 % (0-2); EOSINOPHILS % (AUTO) 0.2 % (0-6); HEMATOCRIT 35.2 % (37.9-51.0); HEMOGLOBIN 11.9 g/dL (13.5-17.0); LYMPHOCYTES % (AUTO) 14.4 % (13-45); MEAN CORPUSCULAR HEMOGLOBIN 28.4 pg (27.0-33.4); MEAN CORPUSCULAR HGB CONC 33.7 g/dL (32.0-36.0); MEAN CORPUSCULAR VOLUME 84 fl (80-97); MONOCYTES % (AUTO) 6.6 % (3-13); PLATELET COUNT 279 10^3/uL (150-450); RED BLOOD COUNT 4.19 10^6/uL (4.35-5.55); RED CELL DISTRIBUTION WIDTH 18.6 % (11.5-14.0); SEGMENTED NEUTROPHILS % (AUTO) 78.1 % (42-78); TOTAL CELLS COUNTED % (AUTO) 100 %; WHITE BLOOD COUNT 3.9 10^3/uL (4.0-10.5)
[2020-01-29 13:23] LABS: ALBUMIN 3.6 g/dL (3.5-5.0); ALCOHOL 41 mg/dL (NONE DETECTED); ALKALINE PHOSPHATASE 124 U/L (38-126); ANION GAP 11 (5-19); ASPARTATE AMINO TRANSFERASE 55 U/L (17-59); BILIRUBIN,TOTAL 0.6 mg/dL (0.2-1.3); BLOOD UREA NITROGEN 24 mg/dL (7-20); CALCIUM 8.7 mg/dL (8.4-10.2); CARBON DIOXIDE 19 mmol/L (22-30); CHLORIDE 109 mmol/L (98-107); GLUCOSE 92 mg/dL (75-110); TOTAL PROTEIN 7.9 g/dL (6.3-8.2)
[2020-01-29 13:24] LABS: ACETAMINOPHEN < 10 ug/mL (10-30); SALICYLATE < 1.0 mg/dL (2.0-20.0)
--- NOTE | 2020-01-29 15:24 | ER Document Report ---
ED General - General Chief Complaint: Psych Problem Stated Complaint: SUICIDAL IDEATIONS Time Seen by Provider: 01/29/20 12:37 Primary Care Provider: LUISA WHATLEY MD [Primary Care Provider] - Follow up as needed TRAVEL OUTSIDE OF THE [place] IN LAST 30 DAYS: No - HPI Notes: Chief complaint: Suicidal ideation and visual hallucinations HPI: 64-year-old homeless male with history of diabetes mellitus and hypertension as well as a chronic diabetic ulcer of his left foot and chronic renal insufficiency presents to this emergency department for the third time in 3 days. He was worked up very thoroughly by Dr. Quiroz yesterday for complaints of general malaise. She found no indication for medical admission. He comes back in today stating that he "drank a little beer" last night and finds himself feeling very socially isolated, generally fatigued and increasingly depressed. He has been contemplating suicide but says he is afraid to engage in any kind of a violent act. He has thought about drinking as much whiskey as he can get hold of and eating a large number of candy bars to raise his sugar up to a dangerous level. Patient also endorses intermittent visual hallucinations. Says he sees "dreadful creatures" lurking in the shadows. He denies any homicidal ideation. He denies any auditory hallucinations. He does not have access to any type of weapons. - Related Data Allergies/Adverse Reactions: No Known Allergies Allergy (Verified 09/27/19 21:24) Past Medical History - General Information source: Patient, [facility] Records - Social History Smoking Status: Former Smoker Chew tobacco use (# tins/day): No Frequency of alcohol use: Heavy Drug Abuse: None Lives with: Homeless Family History: Hypertension, Malignancy. denies: CAD, DM - Past Medical History Cardiac Medical History: Reports: Hx Hypertension, Hx Peripheral Vascular Disease Denies: Hx Coronary Artery Disease, Hx Heart Attack Pulmonary Medical History: Denies: Hx Asthma, Hx Bronchitis, Hx COPD, Hx Pneumonia Neurological Medical History: Denies: Hx Cerebrovascular Accident, Hx Seizures Endocrine Medical History: Reports: Hx Diabetes Mellitus Type 2 - non compliant with medications. Denies: Hx Diabetes Mellitus Type 1, Hx Hyperthyroidism, Hx Hypothyroidism Renal/ Medical History: Reports: Hx Renal Insufficiency. Denies: Hx Peritoneal Dialysis GI Medical History: Denies: Hx Cirrhosis, Hx Hepatitis Musculoskeletal Medical History: Reports Hx Arthritis - Amputation of multiple toes left foot. Chronic diabetic ulcer left foot., Denies Hx Gout Skin Medical History: Denies Hx Eczema, Denies Hx Psoriasis Psychiatric Medical History: Reports: Hx Depression Infectious Medical History: Denies: Hx Hepatitis Past Surgical History: Reports: Hx Vascular Surgery - Amputations: right third, fourth and fifth toes, left second and third toes, Other - Multiple toe amputations - Immunizations Hx Diphtheria, Pertussis, Tetanus Vaccination: No Hx Pneumococcal Vaccination: 09/26/13 Review of Systems - Review of Systems Notes: Constitutional: Negative for fever. HENT: Negative for sore throat. Eyes: Negative for visual changes. Cardiovascular: Negative for chest pain. Respiratory: Negative for shortness of breath. Gastrointestinal: Negative for abdominal pain, vomiting or diarrhea. Genitourinary: Negative for dysuria. Musculoskeletal: Chronic musculoskeletal pain lower back both knees and both ankles.. Skin: Negative for rash. Neurological: Negative for headaches, focal weakness or numbness. 10 point ROS negative except as marked above and in HPI. Physical Exam - Vital signs Vitals: Temp Pulse Resp BP Pulse Ox 97.9 F 100 18 173/84 H 100 01/29/20 12:50 01/29/20 12:50 01/29/20 12:50 01/29/20 12:50 01/29/20 12:50 - Notes Notes: GENERAL: Somewhat disheveled elderly man appearing in no acute distress. SKIN: Good turgor no rashes. HEAD: Normocephalic atraumatic. EYES: PERRLA. EOMI. Conjunctivae and sclerae clear. EARS: CANALS AND TMS CLEAR. NOSE: CLEAR. MOUTH: Moist mucosa. Good dentition. No stridor or edema. No drooling. NECK: Supple. No masses or thyromegaly. No adenopathy. Carotids 2+ without bruits. No JVD. BACK: Symmetrical without tenderness. CHEST: Respirations unlabored. Breath sounds clear and symmetrical. HEART: Regular rhythm. No murmur gallop or rub. ABDOMEN: Soft mildly obese nontender without masses, organomegaly or rebound. Bowel sounds normally active. No bruits. GENITALIA: Deferred. EXTREMITIES: Surgical absence of multiple toes left foot. 3.5 cm chronic ulceration of the plantar surface of the left foot beneath the distal first metatarsal. There is some dark eschar along the edge of this. The area is non tender and there is no active drainage. No edema. No calf tenderness. Cap refill less than 1.5 seconds. Dorsalis pedis and posterior tibial pulses 1+ and symmetrical. NEUROLOGICAL: GCS 15. Alert and oriented x3. Fluent speech. Cranial nerves II through XII intact. Sensorimotor and cerebellar normal. Normal tone. PSYCHIATRIC: Flat affect. Course - Re-evaluation Re-evalutation: 01/29/20 15:29 His labs are basically consistent with his usual baseline. He has a creatinine of approximately 2.0. He does not have any elevation in his white count. His blood sugar is 93 presently. I have asked them to redress the ulcerated area on his left foot. I feel he is stable from a medical standpoint. We will ask for consultation from the behavioral health service. - Vital Signs Vital signs: Temp Pulse Resp BP Pulse Ox 97.9 F 100 18 173/84 H 100 01/29/20 12:50 01/29/20 12:50 01/29/20 12:50 01/29/20 12:50 01/29/20 12:50 - Laboratory Result Diagrams: 01/29/20 12:50 01/29/20 12:50 Laboratory results interpreted by me: 01/29/20 01/29/20 12:50 12:50 WBC 3.9 L RBC 4.19 L Hgb 11.9 L Hct 35.2 L RDW 18.6 H Seg Neutrophils % 78.1 H Chloride 109 H Carbon Dioxide 19 L BUN 24 H Creatinine 2.09 H Est GFR ( Amer) 39 L Est GFR (MDRD) Non-Af 32 L Salicylates < 1.0 L Acetaminophen < 10 L Discharge - Discharge Clinical Impression: Suicidal ideation, Recurrent major depression, Diabetes mellitus type 2, Homelessness Condition: Stable Disposition: PSYCH HOSP/UNIT Referrals: LUISA WHATLEY MD [Primary Care Provider] - Follow up as needed
[2020-01-29 18:32] VITALS: BP 130/80
--- NOTE | 2020-01-29 18:32 | EKG REPORT ---
SEVERITY:- OTHERWISE NORMAL ECG - SINUS TACHYCARDIA : Confirmed by: Aldo Harmon 29-Jan-2020 18:32:08
== END 2020-01-29 18:32 | disposition home or self-care (01) ==
LOC: ER 12:27
DX: R45.851 Suicidal ideations (principal); F32.9 Major depressive disorder, single episode, unspecified; E11.9 Type 2 diabetes mellitus without complications; Z59.0 Homelessness; I10 Essential (primary) hypertension; R53.81 Other malaise; Z87.891 Personal history of nicotine dependence; Z91.14 Patient's other noncompliance with medication regimen
CPT/HCPCS: 36415; 80053; 80307; 82962; 85025; 93005; 93010; 99285